=== PATIENT | male | born 1985 | race African-American/Black ===

== ENCOUNTER 2018-12-05 15:58 | Inpatient (IN) | payer OTHER ==
[2018-12-05 16:50] LABS: Hemoglobin 16.9 g/dL (14.0-18.0); Mean Corpuscular HGB CONC 29.8 g/dL (32.0-36.0); Mean Corpuscular Hemoglobin 26.8 pg (27.0-31.0); Mean Corpuscular Volume 90.1 fL (78.0-98.0); Mean Platelet Volume 11.1 fL (7.4-10.4); Platelet Count 120 thou/uL (130-400); RBC Distribution Width 14.8 % (11.5-14.5); White Blood Cell (WBC) Count 4.2 thou/uL (4.8-10.8)
--- NOTE | 2018-12-05 16:58 | RAD ---
PORTABLE CHEST: Date: 12/05/18 COMPARISON: 11/28/18 study. HISTORY: Shortness of breath. FINDINGS: Heart size markedly enlarged. No signs of overt failure or focal infiltrates. IMPRESSION: Marked cardiomegaly. Stable exam. POS: [facility]
[2018-12-05 17:10] LABS: ALT (SGPT) 28 U/L (8-55); AST (SGOT) 25 U/L (5-34); Albumin 3.6 g/dL (3.5-5.0); Alkaline Phosphatase 86 U/L (40-150); Anion Gap 16 mmol/L (10-20); BUN (Urea Nitrogen) 34 mg/dL (8.9-20.6); Bilirubin, Total 1.2 mg/dL (0.2-1.2); Calc. Creatinine Clearance 0 mL/min (70-130); Calcium 9.3 mg/dL (7.8-10.44); Carbon Dioxide 29 mmol/L (22-29); Chloride 93 mmol/L (98-107); Estimated GFR-MDRD 55; Globulin 3.2 g/dL (2.4-3.5); Glucose 141 mg/dL (70-105); Potassium 3.8 mmol/L (3.5-5.1); Protein, Total 6.8 g/dL (6.0-8.3); Sodium 134 mmol/L (136-145)
[2018-12-05 17:14] LABS: Band 14 % (5-11); Lymphocytes 22 % (21-51); MDiff Complete? YES; Monocytes 17 % (0-10); Neutrophil 38 % (42-75); Platelet Morphology Comment Appears Decreased; RBC Morphology Normal; Reactive Lymphocytes 9 % (0-10)
--- NOTE | 2018-12-05 18:29 | PDOC.FPRHP ---
- History of Present Illness Chief Complaint: SOB History of Present Illness: 32 yo M with HFrEF, HLD, HTN, HIV and Morbid obesity presents for low O2 sats in 80s and low BP (92/62 on admission), sent from [facility]. He was recently discharged from the hospital for acute CHF exacerbation. He states he has been having diarrhea, 5-6 episodes watery stools per day since soon after his discharge. He has also been restricting his daily fluid intake to 2L /day. In ED, he was diaphoretic, had BP 92/62 that improved with fluids, satting 87% on RA. WBC of 4.2 with a bandemia. Trop indeterminate. BNP 865. CXR showed no changes. - Allergies/Adverse Reactions Allergies Allergy/AdvReac Type Severity Reaction Status Date / Time No Known Drug Allergies Allergy Verified 11/28/18 17:40 - Home Medications Medication Instructions Recorded Confirmed Type Elviteg/Cob/Emtri/Tenof Alafen 1 tab PO DAILY 06/07/18 12/05/18 History [Genvoya Tablet] Carvedilol [Coreg] 6.25 mg PO BID-WM #60 tab 06/12/18 12/05/18 Rx Lisinopril [Zestril] 10 mg PO DAILY #30 tab 06/12/18 12/05/18 Rx Potassium Chloride 10 meq PO DAILY #30 tab 06/12/18 12/05/18 Rx Furosemide [Lasix] 80 mg PO DAILY 11/28/18 12/05/18 History Spironolactone [Aldactone] 12.5 mg PO QAM-WM #30 tab 11/30/18 12/05/18 Rx Aspirin [Aspirin EC] 81 mg PO DAILY 12/05/18 12/05/18 History - History PMHx: CHF (EF 45-50%), pre-diabetes, HLD, DANIEL, HTN, HIV (CD4 250), Morbid obesity with concern for obesity hypoventilation syndrome, latent syphilis PSHx: tonsils and adenoids FHx: father -CHF, Fathers gMa- heart attack and stroke mGM-AVM and stroke Social: quit 3 years ago smoking, was smoking intermittently reports not addicted; occasional, none for past few months; no drug use - Review of Systems General: denies: fever/chills Eyes: denies: eye pain, vision changes ENT: denies: nasal congestion, rhinorrhea Respiratory: reports: shortness of breath. denies: cough, congestion Cardiovascular: denies: chest pain, palpitation, edema Gastrointestinal: reports: diarrhea, abdominal pain. denies: nausea, vomiting, constipation, GI bleeding Genitourinary: denies: dysuria, other (hematuria) Skin: denies: rashes, lesions Musculoskeletal: reports: pain (chronic low back pain). denies: tenderness Neurological: denies: numbness, weakness Psychological: denies: anxiety, depression (sister thinks he is depressed) - Vital signs BP: [114/53] HR: [98] RR: [16] Tmax: [98.1] Pox: [98]% on [2L BNC] Wt: [ 213.19 kg] - Physical Exam Constitutional: NAD, awake, alert and oriented, well developed, other (obese morbid) HEENT: normocephalic and atraumatic, PERRLA, EOMI, conjunctiva clear, MMM, oropharynx clear Neck: supple, no LAD Heart: normal S1/S2, no murmurs/rubs/gallops, pulses present, other (irregular rhythm) Lungs: CTAB, no respiratory distress, other (difficult exam due to size) Abdomen: soft, non-tender, bowel sounds present Musculoskeletal: normal structure, normal tone Neurological: no focal deficit, CN II-XII intact, normal sensation Skin: no rash/lesions, good turgor, capillary refill <2 seconds Heme/Lymphatic: no unusual bruising or bleeding Psychiatric: normal mood and affect, other (poor memory) [facility] H&P: Results - Labs Result Diagrams: 12/05/18 16:34 12/05/18 16:34 Lab results: WBC 4.2 thou/uL (4.8-10.8) L 12/05/18 16:34 Hgb 16.9 g/dL (14.0-18.0) 12/05/18 16:34 Hct 56.7 % (42.0-52.0) H 12/05/18 16:34 MCV 90.1 fL (78.0-98.0) 12/05/18 16:34 Plt Count 120 thou/uL (130-400) L 12/05/18 16:34 Band Neuts % (Manual) 14 % (5-11) H 12/05/18 16:34 Sodium 134 mmol/L (136-145) L 12/05/18 16:34 Potassium 3.8 mmol/L (3.5-5.1) 12/05/18 16:34 Chloride 93 mmol/L (98-107) L 12/05/18 16:34 Carbon Dioxide 29 mmol/L (22-29) 12/05/18 16:34 BUN 34 mg/dL (8.9-20.6) H 12/05/18 16:34 Creatinine 1.75 mg/dL (0.7-1.3) H 12/05/18 16:34 Glucose 141 mg/dL (70-105) H 12/05/18 16:34 Calcium 9.3 mg/dL (7.8-10.44) 12/05/18 16:34 Total Bilirubin 1.2 mg/dL (0.2-1.2) 12/05/18 16:34 AST 25 U/L (5-34) 12/05/18 16:34 ALT 28 U/L (8-55) 12/05/18 16:34 Alkaline Phosphatase 86 U/L (40-150) 12/05/18 16:34 CK-MB (CK-2) 2.0 ng/mL (0-6.6) 12/05/18 16:34 B-Natriuretic Peptide 865.3 pg/mL (0-100) H 12/05/18 16:34 Serum Total Protein 6.8 g/dL (6.0-8.3) 12/05/18 16:34 Albumin 3.6 g/dL (3.5-5.0) 12/05/18 16:34 - EKG Interpretation EKG: frequent PACs, NSR - Radiology Interpretation Chest x-ray Status: image reviewed by me Additional comment: stable cardiomegaly [facility] H&P: A/P - Problem List (1) Acute and chronic respiratory failure with hypoxia Current Visit: No Status: Acute Code(s): J96.21 - ACUTE AND CHRONIC RESPIRATORY FAILURE WITH HYPOXIA (2) Septic colitis Current Visit: Yes Status: Acute Code(s): A09 - INFECTIOUS GASTROENTERITIS AND COLITIS, UNSPECIFIED (3) Volume depletion, gastrointestinal loss Current Visit: Yes Status: Acute Code(s): E86.9 - VOLUME DEPLETION, UNSPECIFIED (4) Elevated brain natriuretic peptide (BNP) level Current Visit: Yes Status: Acute Code(s): R79.89 - OTHER SPECIFIED ABNORMAL FINDINGS OF BLOOD CHEMISTRY (5) Acute kidney injury superimposed on CKD Current Visit: Yes Status: Acute Code(s): N17.9 - ACUTE KIDNEY FAILURE, UNSPECIFIED; N18.9 - CHRONIC KIDNEY DISEASE, UNSPECIFIED (6) Hyponatremia Current Visit: Yes Status: Acute Code(s): E87.1 - HYPO-OSMOLALITY AND HYPONATREMIA (7) Thrombocytopenia Current Visit: Yes Status: Acute Code(s): D69.6 - THROMBOCYTOPENIA, UNSPECIFIED (8) Polycythemia secondary to hypoxia Current Visit: Yes Status: Chronic Code(s): D75.1 - SECONDARY POLYCYTHEMIA (9) Latent syphilis in male Current Visit: Yes Status: Chronic Code(s): A53.0 - LATENT SYPHILIS, UNSPECIFIED EARLY OR LATE (10) HFrEF (heart failure with reduced ejection fraction) Current Visit: Yes Status: Chronic Code(s): I50.20 - UNSPECIFIED SYSTOLIC ( CONGESTIVE) HEART FAILURE (11) Pre-diabetes Current Visit: Yes Status: Chronic Code(s): R73.03 - PREDIABETES (12) HLD (hyperlipidemia) Current Visit: Yes Status: Chronic Code(s): E78.5 - HYPERLIPIDEMIA, UNSPECIFIED (13) HIV (human immunodeficiency virus infection) Current Visit: No Status: Chronic Code(s): B20 - HUMAN IMMUNODEFICIENCY VIRUS [HIV] DISEASE (14) HTN (hypertension) Current Visit: No Status: Chronic Code(s): I10 - ESSENTIAL (PRIMARY) HYPERTENSION (15) Morbid obesity Current Visit: No Status: Chronic Code(s): E66.01 - MORBID (SEVERE) OBESITY DUE TO EXCESS CALORIES (16) Obesity hypoventilation syndrome Current Visit: No Status: Suspected Code(s): E66.2 - MORBID (SEVERE) OBESITY WITH ALVEOLAR HYPOVENTILATION - Plan Acute hypoxic resp failure 2/2 most likely to Pickwickian syndrome In ED, satting 87% on RA. Improved with BNC to 98% on 2L O2. - CXR showed stable cardiomegaly. BNP elevated at 865, however not clinically fluid overloaded. Trop indeterminate. - Pt had low O2 at recent admission - CM consult for outpatient O2 - Procal pending - Tamiko QUIROGA q4H - CM consulted to help acquire portable oxygen. Sepsis 2/2 colitis, Volume depletion 2/2 diarrhea - Low WBC, P 98 - Start gentle fluids in setting of CHF, LR @ 125 - Stool studies pending Elevated BNP - Likely 2/2 to CKD DANIEL on CKD - Cr 1.75 - Likely 2/2 volume depletion from diarrhea - Gentle IV fluids as above Hyponatremia -Mild, 134. Continue to monitor Thrombocytopenia -120 Polycythemia - Likely 2/2 to pickwickian/ LOURDES. In need of sleep study HIV (CD4 250) -Patient does not admit in front of family. Continue home meds, patient very compliant. Latent syphilis -Pt will likely need 2nd penicillin G injection during his stay here HFrEF (EF 45-50%) - Trop indeterminate. BNP 865. CXR showed stable cardiomegaly. - Daily weights, strict I/Os Pre-diabetes -Patient aware HLD HTN - Continue home medication Morbid obesity concern for pickwickian Diet: CC, HH DVT ppx: lovenox GI ppx: Ranitidine Code status: Full PCP: KELLI Naqvi at [facility] H&P: Upper Level - Pertinent history 32 yo AAM PMH HIV well controlled on HAART, HTN, HFpEF. Presents from urgent care with CC of low oxygen status and low BP. States he develop diarrhea 2 days after he was d/c from hospital and states he has felt like he has had a " stomach bug" for the last 4-5 days. Was d/c on 11/30 for CHF exacerbation. I spoke with Dr. Pavon who stated they believed the patient's hypoxia was 2/2 obesity hypoventilation syndrome and LOURDES. Patient needs CPAP but not funded. Patient received home Oxygen but only using at bed time. ER: Labs, EKG, CXR, - Pertinent findings Vitals: SpO2 94% on 3L. Pulse ranges from 90s to 170s. GEN: morbidly obese, NAD CV: RRR, no murmur Pulm: CTA-B, exam limited by body habituys Labs: Trop 0.031, BNP 865 (d/c at 400), WBC 4.2, Cr 1.75 CXR: NO acute processes EKG/Tele: while examining patient, tele monitor would vary between NSR in 90s to SVT vs sinus tachycardia in 170s. Occasional A-fib/a-flutter appearing rhythm. Patient asymptomatic during episodes and episodes last 4-5 seconds. - Plan Date/Time: 12/05/181828 I, Jaret Alejo MD, have evaluated this patient and agree with findings/plan as outlined by landscape maintenance internship resident. Pertinent changes/additions are listed here. 1. Sepsis 2/2 colitis: BP and Pulse improved without fluids. Will start maintenance fluids LR 125mL/hr. Check stool lactoferrin, C-diff, and culture. Monitor PO intake. 2. HFrEF: While BNP continues to trend up, not clinically overloaded at this time. May be due to physiologic stress from diarrhea. 3. DANIEL on CKD2: IV LR. 4. Obesity hypoventilation syndrome: Oxygen PRN. CM consulted to help acquire portable oxygen. 5. HTN: home meds 6. HIV: well controlled per Dr. Chapin last note. 7. PPx: Lovenox 8. Diet: HH 9. CODE: FULL 10. Elevated Troponin: likely stress response. Trend x3. Dispo: Obs, Tele, <[address] Hicks.
[2018-12-05] MEDS ORDERED: Enoxaparin Sodium 40 MG/0.4 ML SYRINGE SC SCH (20:15)
[2018-12-05 20:45] LABS: Troponin I 0.027 ng/mL (< 0.028)
[2018-12-05] MEDS ORDERED: Acetaminophen 325 MG TAB PO PRN (21:23)
[2018-12-05] MEDS: Famotidine 20 MG TAB PO SCH (22:28)
[2018-12-05] MEDS: Lactated Ringer's 1,000 ML IV SCH (22:28)
[2018-12-05] MEDS ORDERED: Gabapentin 300 MG CAP PO SCH (23:30)
--- NOTE | 2018-12-05 23:47 | PDOC.EVN ---
Event Note - Event Note Event Note: Date/Time: 12/05/18 8425 I personally evaluated the patient and discussed the management with Dr. Aruna Conway I agree with the History, Examination, Assessment and Plan documented above with any addition or exceptions noted below- 32 yo AAM PMH HIV well controlled on HAART, HTN, HFpEF, low back pain, and morbid obesity presented from urgent care with CC of low oxygen status and low BP. States he develop diarrhea 1 day after he was d/c from hospital and states he has felt like he has had a " stomach bug" for the last 4-5 days. Having 5-6 watery stools per day. Hasd some associated abdominal cramping which has resolved. Normal appetite. Denies any fever/chills. Recently hospitalized for CHF exacerbation and discharged with O2 which patient has been using at bedtime. PMH/PSH/ALl/Meds reviewed and agree with resident's documentation. T99.2 [id number]/85 P92 RR18 92% on 3L NC. Exam repeated by me and agree with resident's findings. Labs: WBC=4.2, H/H= 16.9/56.7, Eaa=202, Diff=38N/14B/22L, Uu=345, K=3.8, CL=93, CO2=29, BUN/Cr=34/ 1.75, Zndo=177, Procalcitonin=0.18 A/P: 1) Diarrhea- will check stool studies including C. Diff with recent hospitalization; continue gentle IVF. 2) DANIEL- Cr above baseline- continue gentle IVF. 3) Pickwickian syndrome- continue O2. 4) HIV- continue home meds.
[2018-12-06] MEDS: Lactated Ringer's 1,000 ML IV SCH ×2 (05:35→09:42)
--- NOTE | 2018-12-06 06:02 | PDOC.FM ---
- Subjective Subjective: Pt reports his breathing is improved. He also reports he has had less diarrhea overnight. He denies dizziness, lightheadedness, chest pain, or abdominal pain. - Objective MAR Reviewed: Yes Vital Signs & Weight: Vital Signs (12 hours) Temp Pulse Resp BP BP BP BP 12/06/18 04:00 97.7 F 107 H 22 H 115/75 12/06/18 02:24 18 12/05/18 22:35 93 127/70 127/85 133/65 12/05/18 22:31 16 12/05/18 20:45 99.2 F 92 16 137/85 Pulse Ox 12/06/18 04:00 100 12/06/18 02:24 95 12/05/18 22:35 94 L 12/05/18 22:31 94 L 12/05/18 20:45 94 L Weight Weight 221.625 kg I&O: 12/04/18 12/05/18 12/06/18 06:59 06:59 06:59 Intake Total 900 Output Total 550 Balance 350 Result Diagrams: 12/06/18 05:20 12/06/18 05:20 Phys Exam - Physical Examination Constitutional: NAD Morbidly obese HEENT: PERRLA, moist MMs Neck: supple Respiratory: no wheezing, no rales, clear to auscultation bilateral Cardiovascular: RRR, no significant murmur Gastrointestinal: soft, non-tender, no distention, positive bowel sounds edema, non pitting Neurological: non-focal, moves all 4 limbs Psychiatric: normal affect, A&O x 3 Dx/Plan (1) Acute kidney injury superimposed on CKD Code(s): N17.9 - ACUTE KIDNEY FAILURE, UNSPECIFIED; N18.9 - CHRONIC KIDNEY DISEASE, UNSPECIFIED Status: Acute (2) Hyponatremia Code(s): E87.1 - HYPO-OSMOLALITY AND HYPONATREMIA Status: Acute (3) Thrombocytopenia Code(s): D69.6 - THROMBOCYTOPENIA, UNSPECIFIED Status: Acute (4) HFrEF (heart failure with reduced ejection fraction) Code(s): I50.20 - UNSPECIFIED SYSTOLIC (CONGESTIVE) HEART FAILURE Status: Chronic (5) HLD (hyperlipidemia) Code(s): E78.5 - HYPERLIPIDEMIA, UNSPECIFIED Status: Chronic (6) Latent syphilis in male Code(s): A53.0 - LATENT SYPHILIS, UNSPECIFIED EARLY OR LATE Status: Chronic (7) Pre-diabetes Code(s): R73.03 - PREDIABETES Status: Chronic (8) Acute and chronic respiratory failure with hypoxia Code(s): J96.21 - ACUTE AND CHRONIC RESPIRATORY FAILURE WITH HYPOXIA Status: Acute (9) HIV (human immunodeficiency virus infection) Code(s): B20 - HUMAN IMMUNODEFICIENCY VIRUS [HIV] DISEASE Status: Chronic (10) HTN (hypertension) Code(s): I10 - ESSENTIAL (PRIMARY) HYPERTENSION Status: Chronic - Plan Plan: This is a 32 yo male with PMH of HIV, CKD, HFrEF, pre-diabetes, latent syphilis , HLD, HTN Acute Hypoxic respiratory failure likely 2/2 Pickwickian syndrome -Continued to require O2 support overnight -BMI of 56 -CM consult for outpt O2 -Procal negative, likely not bacterial infection -Tang Duoneb, will back off when clinically appropriate -2/3 troponins indeterminate, likely 2/2 demand ischemia Met SIRS criteria likely 2/2 SOB, volume depletion, diarrhea, and HIV -Continue gentle fluids, evaluate for decreasing once pt can tolerate PO -Pending stool studies Elevated BNP -Will monitor for signs of fluid overload DANIEL on CKD -Likely 2/2 dehydration -Continue fluid resuscitation Thrombocytopenia -Will monitor, (120) Pickwickian syndrome -Encourage outpt sleep study HIV (CD4 250) -No current need for prophylaxis, controlled on HAART Latent Syphilis -2nd dose of Pen G during stay HFrEF (EF 45-50%, 06/08/18) -Daily wt, strict I/Os 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
[2018-12-06 06:09] LABS: Anion Gap 14 mmol/L (10-20); BUN (Urea Nitrogen) 36 mg/dL (8.9-20.6); Calc. Creatinine Clearance 218 mL/min (70-130); Calcium 9.4 mg/dL (7.8-10.44); Carbon Dioxide 31 mmol/L (22-29); Chloride 93 mmol/L (98-107); Estimated GFR-MDRD 64; Glucose 111 mg/dL (70-105); Potassium 3.7 mmol/L (3.5-5.1); Sodium 134 mmol/L (136-145)
[2018-12-06 06:17] LABS: Band 3 % (5-11); Hemoglobin 16.8 g/dL (14.0-18.0); Lymphocytes 21 % (21-51); MDiff Complete? YES; Mean Corpuscular HGB CONC 29.8 g/dL (32.0-36.0); Mean Corpuscular Hemoglobin 27.1 pg (27.0-31.0); Mean Platelet Volume 10.6 fL (7.4-10.4); Monocytes 8 % (0-10); Neutrophil 67 % (42-75); Platelet Count 133 thou/uL (130-400); Platelet Morphology Comment Appears Adequate; RBC Distribution Width 14.5 % (11.5-14.5); RBC Morphology Normal; Reactive Lymphocytes 1 % (0-10); Red Blood Cell (RBC) Count 6.19 mill/uL (4.70-6.10); White Blood Cell (WBC) Count 4.3 thou/uL (4.8-10.8)
[2018-12-06] MEDS: Enoxaparin Sodium 40 MG/0.4 ML SYRINGE SC SCH (09:42)
[2018-12-06] MEDS: Famotidine 20 MG TAB PO SCH ×2 (09:42→21:14)
[2018-12-06] MEDS ORDERED: Sulfameth/Trimethoprim DS 800-160mg TAB PO SCH (12:30)
--- NOTE | 2018-12-06 19:21 | PRG ---
DATE OF SERVICE: 12/06/2018 SUBJECTIVE: Mr. Trejo is a 32-year-old man with HIV. He was recently discharged from the hospital and returned late yesterday with episodes of watery diarrhea. We have stool studies pending, but already this morning, he looks and feels improved. LABORATORY DATA: White count is 4200, hemoglobin is 16.9, hematocrit 56.7. Chemistry; sodium 134, potassium 3.7, chloride 93, bicarb 31, BUN 36, creatinine 1.54. PLAN: We are still awaiting several stool studies and we will continue IV fluids judiciously. Job ID: [id number]
[2018-12-06] MEDS: Gabapentin 300 MG CAP PO SCH (21:14)
--- NOTE | 2018-12-07 05:53 | PDOC.FM ---
- Subjective Subjective: Pt had a run of SVT overnight and then sinus tach per nursing/night team. This morning be denies chest pain, SOB, palpitations, abdominal pain, or diarrhea. - Objective MAR Reviewed: Yes Vital Signs & Weight: Vital Signs (12 hours) Temp Pulse Resp BP Pulse Ox 12/07/18 04:05 98.1 F 104 H 16 169/99 H 95 12/07/18 03:16 94 L 12/07/18 01:13 92 L 12/06/18 23:11 94 L 12/06/18 20:20 98.1 F 92 16 125/82 95 12/06/18 19:36 94 L 12/06/18 19:33 94 L Weight Admit Weight 221.625 kg Weight 223.213 kg I&O: 12/05/18 12/06/18 12/07/18 06:59 06:59 06:59 Intake Total 1025 1575 Output Total 800 1250 Balance 225 325 Result Diagrams: 12/07/18 04:42 12/07/18 04:42 Phys Exam - Physical Examination Constitutional: NAD HEENT: moist MMs Neck: full ROM Respiratory: no wheezing, clear to auscultation bilateral (difficult to assess due to body habitus) Cardiovascular: RRR, no significant murmur Gastrointestinal: soft, non-tender, no distention, positive bowel sounds Musculoskeletal: pulses present, edema present (non pitting edema) Neurological: normal sensation, moves all 4 limbs Psychiatric: normal affect, A&O x 3 Deviation from normal: Pt with some somulence Skin: cap refill <2 seconds Dx/Plan (1) HTN (hypertension) Code(s): I10 - ESSENTIAL (PRIMARY) HYPERTENSION Status: Chronic (2) HIV (human immunodeficiency virus infection) Code(s): B20 - HUMAN IMMUNODEFICIENCY VIRUS [HIV] DISEASE Status: Chronic (3) Acute and chronic respiratory failure with hypoxia Code(s): J96.21 - ACUTE AND CHRONIC RESPIRATORY FAILURE WITH HYPOXIA Status: Acute (4) Acute kidney injury superimposed on CKD Code(s): N17.9 - ACUTE KIDNEY FAILURE, UNSPECIFIED; N18.9 - CHRONIC KIDNEY DISEASE, UNSPECIFIED Status: Acute (5) Hyponatremia Code(s): E87.1 - HYPO-OSMOLALITY AND HYPONATREMIA Status: Acute (6) Thrombocytopenia Code(s): D69.6 - THROMBOCYTOPENIA, UNSPECIFIED Status: Acute (7) Latent syphilis in male Code(s): A53.0 - LATENT SYPHILIS, UNSPECIFIED EARLY OR LATE Status: Chronic (8) HFrEF (heart failure with reduced ejection fraction) Code(s): I50.20 - UNSPECIFIED SYSTOLIC (CONGESTIVE) HEART FAILURE Status: Chronic (9) Pre-diabetes Code(s): R73.03 - PREDIABETES Status: Chronic (10) HLD (hyperlipidemia) Code(s): E78.5 - HYPERLIPIDEMIA, UNSPECIFIED Status: Chronic - Plan Plan: This is a 32 yo male with PMH of HIV, CKD, HFrEF, pre-diabetes, latent syphilis , HLD, HTN Acute Hypoxic respiratory failure likely 2/2 Pickwickian syndrome -Continued to require O2 support overnight -BMI of 56 -CM consult for outpt O2 -Procal negative, likely not bacterial infection -Tang Duoneb, will back off when clinically appropriate -2/3 troponins indeterminate, likely 2/2 demand ischemia -ABG this AM pH 7.27, CO2 76.2, O2 75.1, Bicarb 34.8 -Transferring to the IMCU for bipap 2/2 respiratory acidosis likely 2/2 Morbid obesity and hypoventilation syndrome -Pending anti Xa level, based on this level, I would consider obtaining a VQ scan (pt is above max wt for CTA) -Pt had a 50 second run of SVT that resolved spontaneously Met SIRS criteria likely 2/2 SOB, volume depletion, diarrhea, and HIV -Dehydration resolved, continue PO hydration only -Stool studies negative for campylobacter, Shiga toxin, E. coli O157. -Stool studies positive for fecal lactoferrin, this likely does not play a role in this pt's acute diarrhea Elevated BNP -Will monitor for signs of fluid overload DANIEL on CKD -Improving Thrombocytopenia -Will monitor, (120) Pickwickian syndrome -Encourage outpt sleep study HIV (CD4 250) -No current need for prophylaxis, controlled on HAART Latent Syphilis -2nd dose of Pen G during stay HFrEF (EF 45-50%, 06/08/18) -Daily wt, strict I/Os Pre-diabetic -Tests Superintendent pt on heart healthy and diabetic diet HLD -Continue home meds HTN -Continue home meds
[2018-12-07 06:05] LABS: Anion Gap 13 mmol/L (10-20); BUN (Urea Nitrogen) 24 mg/dL (8.9-20.6); Calc. Creatinine Clearance 289 mL/min (70-130); Calcium 9.1 mg/dL (7.8-10.44); Carbon Dioxide 31 mmol/L (22-29); Chloride 96 mmol/L (98-107); Estimated GFR-MDRD 88; Glucose 84 mg/dL (70-105); Potassium 4.3 mmol/L (3.5-5.1); Sodium 136 mmol/L (136-145)
[2018-12-07 06:17] LABS: Band 6 % (5-11); Hemoglobin 16.3 g/dL (14.0-18.0); Lymphocytes 32 % (21-51); MDiff Complete? YES; Mean Corpuscular HGB CONC 29.4 g/dL (32.0-36.0); Mean Corpuscular Hemoglobin 26.5 pg (27.0-31.0); Mean Corpuscular Volume 90.1 fL (78.0-98.0); Mean Platelet Volume 10.3 fL (7.4-10.4); Monocytes 24 % (0-10); Neutrophil 37 % (42-75); Platelet Count 121 thou/uL (130-400); RBC Distribution Width 14.6 % (11.5-14.5); Reactive Lymphocytes 1 % (0-10); Red Blood Cell (RBC) Count 6.15 mill/uL (4.70-6.10)
[2018-12-07 08:17] LABS: Actual Bicarbonate (HCO3a) 34.8 mEq/L (22-28); Base Excess (BEa) 4.5 mEq/L (-2.0 to +3.0); Calcium, Ionized 1.25 mmol/L (1.12-1.30); Carboxyhemoglobin (COHb) 1.7 gm% (0.0-3.0); Hemoglobin (Hb) 17.3 g/dL (14.0-18.0); O2 Tension (PaO2) 75.1 mmHg (80.0-100.0); Potassium - ABG Lab 4.33 mmol/L (3.70-5.30); pH, Arterial 7.28 (7.35-7.45)
[2018-12-07 08:21] LABS: CO2 Tension 76.2 mmHg (35.0-45.0)
[2018-12-07] MEDS ORDERED: Sulfameth/Trimethoprim DS 800-160mg TAB PO SCH (09:00)
[2018-12-07] MEDS ORDERED: Furosemide 40 MG TAB PO SCH (09:00)
[2018-12-07] MEDS ORDERED: Elviteg/Cob/Emtri/Tenof Alafen [Genvoya Tablet] 1 TAB PO SCH ×2 (09:00→13:45)
[2018-12-07] MEDS: Enoxaparin Sodium 40 MG/0.4 ML SYRINGE SC SCH ×2 (09:11→20:29)
[2018-12-07] MEDS: Carvedilol 6.25 MG TAB PO SCH ×2 (09:11→17:32)
[2018-12-07] MEDS: Potassium Chloride 10 MEQ TAB PO SCH (09:11)
[2018-12-07] MEDS: Lisinopril 10 MG TAB PO SCH (09:12)
[2018-12-07] MEDS: Aspirin 81 mg Enteric Coated Tablet PO SCH (09:12)
[2018-12-07] MEDS: Famotidine 20 MG TAB PO SCH ×2 (09:13→20:30)
[2018-12-07] MEDS: Spironolactone 25 MG TAB PO SCH (09:13)
[2018-12-07] MEDS: Sulfameth/Trimethoprim DS 800-160mg TAB PO SCH (09:13)
--- NOTE | 2018-12-07 11:25 | PRG ---
DATE OF SERVICE: 12/07/2018 SUBJECTIVE: This morning early after wakening, Ceasar was still quite somnolent. We obtained an arterial blood gas that revealed respiratory acidosis with a pH of 7.28 and a pCO2 of 76. I surmise that Mr. Trejo has LOURDES and likely developed these numbers overnight during sleep. In the event of half an hour later Mr. Trejo was awake, alert, smiling, and even joking with staff. We as a precaution transferred him to the [facility] for BiPAP. We have again emphasized him the importance of obtaining a sleep study as we feel he likely has LOURDES. Otherwise, this morning Mr. Trejo after the initial awakening is happy, alert, no distress. Job ID: [id number]
[2018-12-07] MEDS ORDERED: Bicillin LA 2.4 MILL.UNITS/4 ML SYRINGE IM SCH (12:30)
--- NOTE | 2018-12-07 16:15 | CON ---
DATE OF CONSULTATION: 12/07/2018 SERVICE: Pulmonary Medicine. REASON FOR CONSULT: Respiratory failure. HISTORY OF PRESENT ILLNESS: The patient is a 32-year-old male. He was in the hospital last week. Ultimately, he was discharged from the hospital and returned to his usual state of health. At his followup appointment, his saturations were low. His blood pressures were also low. He was redirected immediately to the Emergency Department. He felt fine this entire time. Denies any chest pain, fevers, chills, shortness of breath, nausea, or vomiting. He is not lightheaded. He was tucked into the telemetry unit. In that location, based on his recollection, everything was fine, and everybody busted into the room, and made us think something about his heart. Ultimately, an ABG was performed demonstrating hypercapnic failure, which appeared to be mostly chronic. He wished to the IMCU. BiPAP was not initiated. He denies any current fevers, chills, nausea, or vomiting. The patient snores very heavily. He had witnessed apneas at bedside, notes being excessively sleepy during the daytime, and has nocturia x4 to x5 every single evening. Despite the fact that he typically gets 8 hours of sleep, during the daytime he has a hard time keeping his eyes open. Otherwise, he is in his usual state of health and he has no complaints. PHYSICAL EXAMINATION: VITAL SIGNS: Afebrile with a T-max of 99. Pulse 98, blood pressure 105/76, respirations 28, saturation 94% on 2 L nasal cannula. GENERAL: The patient is awake and alert, in no apparent distress. LUNGS: Excellent air entry with no prolonged expiratory phase. There is no wheezing or rhonchi present. HEART: Normal rate, regular. ABDOMEN: Soft, nontender, nondistended. Bowel sounds are positive. MUSCULOSKELETAL: No cyanosis or clubbing. No pitting in the bilateral lower extremities. NEUROLOGIC: Grossly nonfocal. LABORATORY DATA: WBC 5.0, hemoglobin 16.3, platelets 121,000. Neutrophil count is 37% on top 6% bands. Monocyte count is 24. PH 7.28, pCO2 76, PO2 75, corresponding to a saturation of 94%. This was when he was wearing 2 L nasal cannula. Creatinine 1.17 and beautifully downtrending. BUN 24, bicarb 31. Basic metabolic profile is otherwise unremarkable. Troponin 0.03 and gently up trending. BNP 865. Procalcitonin is negative. Liver function studies were previously unremarkable. Stool lactoferrin is positive. Campylobacter and shiga toxin are negative. C. diff antigen and toxin are unremarkable. Stool cultures growing nothing more than normal shannen. ASSESSMENT: 1. Chronic hypercapnic respiratory failure. 2. Morbid obesity. 3. Obstructive sleep apnea, suspected. 4. Diarrhea. DISCUSSION AND PLAN: We will need to expedite an outpatient polysomnogram. Return to clinic to follow up with me in the outpatient setting after this can be arranged. I have a very low threshold for him to be transitioned through CPAP on to BiPAP. Given his hypercapnic failure, my suspicion is that he would benefit more from BiPAP. Pulmonary/Critical Care will continue to follow along while the patient remains in-house, but from my perspective, he is at his baseline and can be considered for transition back out to the telemetry unit. The diarrhea will need to be corrected as the patient will not be able to tolerate the relative metabolic acidosis that accompanies this. 70 minutes have been devoted to this patient in various activities. I personally reviewed all imaging studies and laboratory data noted within this document. For fifty percent of this time, I was interacting with the patient at the bedside or coordinating care with the care team. For the remainder of the time I was immediately available to the patient in the hospital unit. Job ID: [id number] [facility]
[2018-12-07] MEDS: Elviteg/Cob/Emtri/Tenof Alafen [Genvoya Tablet] 1 TAB PO SCH (17:31)
[2018-12-07] MEDS ORDERED: Ondansetron PF 4 MG/2 ML Vial IVP PRN (19:46)
[2018-12-07] MEDS ORDERED: Ondansetron ODT 4 MG TAB PO PRN (19:46)
--- NOTE | 2018-12-07 20:47 | RAD ---
AP VIEW CHEST: 12/07/18 HISTORY: Dyspnea. Shortness of breath, elevated D-dimer. AP view chest is obtained on 12/07/18. Comparison made to previous exam from 12/05/18. AP view chest demonstrates cardiomegaly seen. EKG leads seen over the chest. Mild pulmonary vascular congestion seen. No evidence of effusions, pneumonia or pneumothorax seen. IMPRESSION: Cardiomegaly. POS: [facility]
[2018-12-07] MEDS: Gabapentin 300 MG CAP PO SCH (21:00)
[2018-12-07 22:28] LABS: Hemoglobin 16.7 g/dL (14.0-18.0); Mean Corpuscular Hemoglobin 26.2 pg (27.0-31.0); Mean Corpuscular Volume 91.2 fL (78.0-98.0); Red Blood Cell (RBC) Count 6.37 mill/uL (4.70-6.10); White Blood Cell (WBC) Count 6.7 thou/uL (4.8-10.8)
[2018-12-07 22:49] LABS: Band 1 % (5-11); Lymphocytes 12 % (21-51); MDiff Complete? YES; Mean Corpuscular HGB CONC 28.7 g/dL (32.0-36.0); Mean Platelet Volume 10.6 fL (7.4-10.4); Monocytes 30 % (0-10); Neutrophil 41 % (42-75); Platelet Count 123 thou/uL (130-400); Platelet Morphology Comment Appears Adequate; RBC Distribution Width 14.9 % (11.5-14.5); RBC Morphology Normal; Reactive Lymphocytes 16 % (0-10)
[2018-12-07 22:57] LABS: ALT (SGPT) 34 U/L (8-55); AST (SGOT) 27 U/L (5-34); Albumin 3.7 g/dL (3.5-5.0); Alkaline Phosphatase 108 U/L (40-150); Anion Gap 19 mmol/L (10-20); BUN (Urea Nitrogen) 26 mg/dL (8.9-20.6); Bilirubin, Total 1.7 mg/dL (0.2-1.2); Calc. Creatinine Clearance 168 mL/min (70-130); Carbon Dioxide 25 mmol/L (22-29); Chloride 96 mmol/L (98-107); Estimated GFR-MDRD 47; Globulin 3.4 g/dL (2.4-3.5); Glucose 116 mg/dL (70-105); Potassium 4.9 mmol/L (3.5-5.1); Protein, Total 7.1 g/dL (6.0-8.3); Sodium 135 mmol/L (136-145)
[2018-12-07] MEDS ORDERED: Midazolam HCl 2 mg/2 ml Vial ONE (23:00)
--- NOTE | 2018-12-07 23:16 | RAD ---
AP VIEW CHEST 12/07/18 HISTORY: Status post intubation. AP view chest obtained. Previous old comparison studies not available. AP view chest demonstrates EKG leads seen over the chest. The patient has been intubated. Endotrachea l tube is in good position. There is marked cardiomegaly noted. Exam quality is severely limited due to the patient's large body habitus. Pulmonary vascular congestion seen. IMPRESSION: Endotracheal tube appears to be in good position mid intrathoracic tracheal region. POS: [facility]
[2018-12-07] MEDS ORDERED: Propofol 1,000 MG/100 ML VIAL IV ONE (23:26)
--- NOTE | 2018-12-07 23:26 | PDOC.EVN ---
Event Note - Event Note Event Note: Updated sister Amelia White who is in [place] on patient's condition. Sister reports that he has no or kids, and that mother does not have capacity. She identifies herself as next of kin. is her phone number. She is traveling from [place], her flight leaves at 5 AM tomorrow. She states she will arrive here around noon.
[2018-12-07] MEDS ORDERED: Rocuronium Bromide 10 MG/ML (10ML VIAL) ONE (23:31)
[2018-12-07] MEDS ORDERED: Rocuronium Bromide 50 MG/5 ML VIAL ONE (23:32)
[2018-12-07] MEDS ORDERED: Ventilator Sedation Protocol 1 EACH FS ONE (23:53)
[2018-12-07] MEDS ORDERED: Morphine 2 MG/ML SYRINGE SLOW IVP PRN (23:59)
[2018-12-07] MEDS ORDERED: Midazolam HCl 2 mg/2 ml Vial SLOW IVP SCH (23:59)
[2018-12-07] MEDS ORDERED: fentaNYL Citrate/PF 2,000 MCG in Sodium Chloride 0.9% 60 ML IV SCH (23:59)
[2018-12-07] MEDS ORDERED: Propofol BOLUS 1,000 MG/100 ML VIAL IV PRN (23:59)
[2018-12-07] MEDS ORDERED: DISCONTINUE PREVIOUS NARCOTIC PAIN MEDICATIONS AND BENZODIAZEPINES FS SCH (23:59)
[2018-12-07] MEDS ORDERED: Fentanyl BOLUS 250 ML IVPB PRN (23:59)
[2018-12-07] MEDS ORDERED: Lorazepam 2 MG/ML VIAL SLOW IVP PRN (23:59)
[2018-12-07] MEDS ORDERED: Lactated Ringer's 500 ML IV SCH (23:59)
[2018-12-08] MEDS: Lactated Ringer's 1,000 ML IV SCH ×3 (00:46→20:45)
--- NOTE | 2018-12-08 00:55 | PRG ---
DATE OF SERVICE: 12/07/2018 RESIDENT: Jaret Alejo MD ATTENDING PHYSICIAN: 1. Kiersten Canela MD. 2. Chaim Awan MD. HISTORY OF PRESENT ILLNESS: Dori ramirez was called on the patient at approximately 2120 hours. I responded to the code green, at which time the patient was sitting on the floor being propped up by nursing staff. Per the patient's grandmother, the patient was standing up to go use the bedside commode and as he began to sit down on the commode, he lost consciousness, fell backwards over the top of the commode. Earlier this evening, the patient had developed acute worsening shortness of breath, chest pressure, abdominal pain, and tachycardia. At that time, troponin, BNP, D-dimer, Chest XRay, and EKG were taken. EKG showed sinus tachycardia, but was otherwise unchanged from admission. Troponin and BNP were essentially unchanged from admission. The patient was placed on BiPAP and had initial GCS score of 3, was unresponsive to painful verbal stimuli, but was breathing spontaneously with the BiPAP. Due to the patient's body habitus, a Margaux lift was obtained to try to move the patient, however, his body habitus prevented the use of the Margaux lift, so the patient was placed back in bed with nursing staff present. Decision was made to intubate the patient as he had GCS score of 3 and was unable protect his airway. I called Dr. Junior Osborne from the ER to assist with intubation. The patient was moved from the IMCU to the ICU on BiPAP, at which time, he was intubated. Prior to intubation, I discussed his care with Dr. Parrish, the on- call pulmonary critical care doctor, who recommended sedation only with no paralytic. Dr. Canela arrived just prior to intubation of the patient. An 8cm endotracheal tube was passed through the vocal cords under direct visualization using GlideScope. Tube was placed at 24 cm at the lips and secured in place. Position was verified with color capnography and bilateral lung sounds. Postprocedural chest x-ray was obtained and found to be in adequate position. At this time, his blood pressure remained low in the 70s/40s. His blood pressure remained low with pressures of 80s/40s. Decision was made to place a central venous catheter for potential need for pressors. Dr. Chaim Awan was called to assist with the placement of the central line. Left femoral triple lumen 7 Bulgarian catheter was placed using ultrasound guidance and the seldinger technique. First attempt failed and significant venous bleeding was noted at this time which resolved with approximately 4 to 5 minutes of pressure. Second attempt was successful done by Dr. Awan. During placement of central line, the patient continued to drop oxygen saturations into the low 80s. The patient was found to be biting the endotracheal tube which resolved with more sedation using propofol. The patient is now comfortably breathing on the ventilator, patient is 98% with FiO2 of 60%, inspiratory assist pressure of 10 with a PEEP of 5. Further management of the ventilator will be done by Dr. Parrish. LABORATORY DATA: ABGs were obtained following endotracheal intubation; pH was 7.3, PCO2 was in the 50s, PO2 was in the 60s. This information was relayed to Dr. Parrish by the respiratory therapist. Repeat labs showed increase in his creatinine from 1.17 to 2.01, BNP had downtrended to 639.7, troponin remains negative at 0.025. The patient's D-dimer prior to the code was 0.54. I had planned to perform CTA of the chest, however, the patient's body habitus prohibits CTA at this time, and a V/Q scan had been scheduled for the morning. At this time, afternoon babysitter tech is attempting to perform bilateral venous Doppler to evaluate for DVT. PHYSICAL EXAMINATION: GENERAL: The patient is sedated, resting comfortably on the ventilatory. ENT: Endotracheal tube at 24 cm at the lips with bilateral breath sounds. LUNGS: Clear to auscultation bilaterally. CARDIOVASCULAR: Tachycardic rate, regular rhythm. ASSESSMENT AND PLAN: 1. Acute hypoxic respiratory failure. 2. Syncope of unknown etiology. 3. Morbid obesity. 4. Human immunodeficiency virus-controlled. 5. Acute kidney injury. PLAN: 1. Continue sedation and mechanical ventilation overnight. Dr. Parrish will reassess the patient in the morning. He has adequate vascular access at this time. Broad spectrum antibiotics started at this time. 2. While the etiology of syncope is unknown, at this time, I suspect that the patient may have had a pulmonary embolic event given the history and his body habitus. We will attempt V/Q scan in the morning. 3. Acute renal injury likely due to hypoperfusion. We will monitor strict I's and O's, bolus 500 mL lactated Ringer's and then start gentle IV fluids at 100 mL/ hours. We will frequently reassess to monitor for fluid status. Repeat BMP in the morning. 4. Patient's overall prognosis remains guarded at this time. I have discussed the current plan of care with the patient's family. Approximately 2 hours of critical care time were performed excluding procedure time under the direct supervision of Dr. Canela. I was present from 2140 to 0015 for critical care time. I agree with documentation noted above. The post-intubation chest XR was discussed with Dr. Pitt in radiology as tube placement was difficult to see due to body habitus and he noted vascular congestion and cardiomegaly. Job ID: [id number] MTDD
[2018-12-08] MEDS ORDERED: Lactated Ringer's 500 ML IV SCH (01:00)
[2018-12-08 01:45] LABS: Fibrinogen 375 mg/dL (253-463)
[2018-12-08 01:46] LABS: INR-International Normal Ratio 1.2; PTT 25.4 SEC (22.9-36.1); Prothrombin Time 15.3 SEC (12.0-14.7)
[2018-12-08 01:47] LABS: D-Dimer Test 1.12 *mcg/mL (0.27-0.43)
[2018-12-08 01:48] LABS: FSP-Qualitative ABNORMAL (Normal); FSP-Semiquantitative >=5 & <20 mcg/mL (Less than 5); Platelet Count 119 thou/uL (130-400)
[2018-12-08] MEDS: Piperacillin/Tazobactam 4.5 GM in Sodium Chloride 0.9% 100 ML IVPB SCH ×3 (01:50→17:30)
[2018-12-08] MEDS: Propofol 1,000 MG/100 ML VIAL IV PRN ×7 (01:56→21:02)
[2018-12-08 05:19] LABS: Anion Gap 12 mmol/L (10-20); BUN (Urea Nitrogen) 28 mg/dL (8.9-20.6); Calc. Creatinine Clearance 176 mL/min (70-130); Calcium 9.1 mg/dL (7.8-10.44); Carbon Dioxide 32 mmol/L (22-29); Chloride 95 mmol/L (98-107); Estimated GFR-MDRD 50; Glucose 82 mg/dL (70-105); Potassium 4.5 mmol/L (3.5-5.1); Sodium 134 mmol/L (136-145)
[2018-12-08 05:35] LABS: Band 4 % (5-11); Hemoglobin 15.7 g/dL (14.0-18.0); Hypochromia SLIGHT = 6-15 cells (100X) (0-5/hpf); Large Platelets SLIGHT; Lymphocytes 19 % (21-51); MDiff Complete? YES; Mean Corpuscular HGB CONC 29.7 g/dL (32.0-36.0); Mean Corpuscular Hemoglobin 27.1 pg (27.0-31.0); Mean Corpuscular Volume 91.3 fL (78.0-98.0); Monocytes 20 % (0-10); Neutrophil 54 % (42-75); Platelet Count 116 thou/uL (130-400); Platelet Morphology Comment Appears Decreased; RBC Distribution Width 14.7 % (11.5-14.5); Reactive Lymphocytes 3 % (0-10); Red Blood Cell (RBC) Count 5.79 mill/uL (4.70-6.10); White Blood Cell (WBC) Count 5.4 thou/uL (4.8-10.8)
--- NOTE | 2018-12-08 06:41 | PDOC.FM ---
- Subjective Subjective: Ceasar Trejo seen at bedside this morning. CODE Blue early last night, intubated and R fem CVC placed. Started on empiric antibiotics coverage. LE doppler and V/Q scan ordered. No acute changes since intubation and mechanical ventilation. Vent Setting: SIMV, f 24, Vt 500, PEEP 5, FiO2 50% Morning ABG pending - Objective MAR Reviewed: Yes Vital Signs & Weight: Vital Signs (12 hours) Temp Pulse Pulse Pulse Pulse Pulse Pulse 12/08/18 04:00 99.0 F 12/08/18 02:26 79 12/08/18 02:00 12/08/18 00:00 12/07/18 23:00 99.4 F 12/07/18 22:46 91 12/07/18 22:42 88 12/07/18 22:31 88 12/07/18 22:30 89 12/07/18 22:28 86 12/07/18 22:27 85 12/07/18 22:18 87 12/07/18 22:01 100 12/07/18 21:58 102 H 12/07/18 21:28 50 L 67 60 90 90 12/07/18 19:50 99.4 F Pulse Resp Resp Resp Resp Resp BP 12/08/18 04:00 12/08/18 02:26 24 H 12/08/18 02:00 24 H 12/08/18 00:00 24 H 12/07/18 23:00 12/07/18 22:46 24 H 12/07/18 22:42 20 12/07/18 22:31 24 H 12/07/18 22:30 24 H 12/07/18 22:28 24 H 12/07/18 22:27 24 H 12/07/18 22:18 24 H 12/07/18 22:01 12 12/07/18 21:58 23 H 12/07/18 21:28 90 18 20 22 H 20 87/61 L 12/07/18 19:50 BP BP BP BP BP Pulse Ox Pulse Ox 12/08/18 04:00 12/08/18 02:26 92 L 12/08/18 02:00 12/08/18 00:00 12/07/18 23:00 12/07/18 22:46 93/57 L 94 L 12/07/18 22:42 95 12/07/18 22:31 87/40 L 95 12/07/18 22:30 83/45 L 98 12/07/18 22:28 70/0 L 12/07/18 22:27 68/40 L 12/07/18 22:18 67/46 L 93 L 12/07/18 22:01 98/35 L 12/07/18 21:58 111/58 L 12/07/18 21:28 75/39 L 78/41 L 111/58 L 98/35 L 96 12/07/18 19:50 Pulse Ox 12/08/18 04:00 12/08/18 02:26 12/08/18 02:00 12/08/18 00:00 12/07/18 23:00 12/07/18 22:46 12/07/18 22:42 12/07/18 22:31 12/07/18 22:30 12/07/18 22:28 12/07/18 22:27 12/07/18 22:18 12/07/18 22:01 12/07/18 21:58 12/07/18 21:28 94 L 12/07/18 19:50 Weight Admit Weight 221.625 kg Weight 223.213 kg Most Recent Monitor Data Heart Rate from ECG 84 NIBP 164/89 NIBP BP-Mean 96 Respiration from ECG 24 SpO2 88 I&O: 12/06/18 12/07/18 12/08/18 06:59 06:59 06:59 Intake Total 1025 1575 500 Output Total 800 1250 205 Balance 225 325 295 Result Diagrams: 12/08/18 03:15 12/08/18 03:15 Radiology Reviewed by me: Yes (CXR: Cardiomegaly, ET tube in good position) Phys Exam - Physical Examination sedated on mechanical ventilation HEENT: moist MMs, sclera anicteric Neck: no JVD, supple Respiratory: no wheezing, no rales, no rhonchi, clear to auscultation bilateral Cardiovascular: RRR, no significant murmur Gastrointestinal: soft, positive bowel sounds Musculoskeletal: no edema, pulses present Skin: no rash, cap refill <2 seconds Dx/Plan (1) Acute respiratory failure with hypoxia and hypercapnia Code(s): J96.01 - ACUTE RESPIRATORY FAILURE WITH HYPOXIA; J96.02 - ACUTE RESPIRATORY FAILURE WITH HYPERCAPNIA Status: Acute (2) Obesity hypoventilation syndrome Code(s): E66.2 - MORBID (SEVERE) OBESITY WITH ALVEOLAR HYPOVENTILATION Status : Suspected (3) HIV (human immunodeficiency virus infection) Code(s): B20 - HUMAN IMMUNODEFICIENCY VIRUS [HIV] DISEASE Status: Chronic (4) HTN (hypertension) Code(s): I10 - ESSENTIAL (PRIMARY) HYPERTENSION Status: Chronic (5) HLD (hyperlipidemia) Code(s): E78.5 - HYPERLIPIDEMIA, UNSPECIFIED Status: Chronic (6) Morbid obesity Code(s): E66.01 - MORBID (SEVERE) OBESITY DUE TO EXCESS CALORIES Status: Chronic - Plan Plan: This is a 32 yo male with PMH of HIV, CKD, HFrEF, pre-diabetes, latent syphilis , HLD, HTN 1) Acute Hypoxic Hypercapneic Respiratory Failure: likely 2/2 Pickwickian syndrome - Acute decompensation 12/07/18, Code Blue, syncepal episode - Intubated 12/07/18, R fem CVC placed on 12/07/18 - Procal negative, likely not bacterial infection, covering with empiric Abx, zosyn and vancomycin (started 12/08) - Tang Duoneb - / troponins indeterminate, likely 2/2 demand ischemia - Ordered V/Q scan, LE doppler to r/o VTE - Dr. Parrish Consulted for CCU management, appreciate recs 2) SIRS: likely 2/2 SOB, volume depletion, diarrhea, and HIV - Dehydration resolved, continue PO hydration only - Stool studies negative for campylobacter, Shiga toxin, E. coli O157. - Stool studies positive for fecal lactoferrin, this likely does not play a role in this pt's acute diarrhea 3) HFrEF - Elevated BNP, EF 45-50% on 06/08/18 - Will monitor for signs of fluid overload - strict I/Os, daily weights 4) DANIEL on CKD - Improving with maint IVFs 5) Thrombocytopenia - Continue to trend 6) Pickwickian syndrome - Recommend OP sleep study 7) HIV (CD4 250) - No current need for prophylaxis, controlled on HAART 8) Latent Syphilis - 2nd dose of Pen G during stay 9) Pre-diabetic -Order Entry Technician pt on heart healthy and diabetic diet 10) HLD -Continue home meds 11) HTN -Continue home meds Addendum - Attending - Attending Attestation Date/Time: 12/08/18 153 I personally evaluated the patient and discussed the management with Dr. Orlando. I agree with the History, Examination, Assessment and Plan documented above with any addition or exceptions noted below. Pt is sedated on this vent this morning. LE dopplers are negative. Appreciate Dr. Parrish's help managing the vent. Will continue supportive care. Cultures drawn overnight and are pending. ABG indicates alkalosis this morning. DANIEL mildly improved. All stool cultures to date have been negative.
[2018-12-08 07:11] LABS: Actual Bicarbonate (HCO3a) 29.9 mEq/L (22-28); Base Excess (BEa) 7.5 mEq/L (-2.0 to +3.0); CO2 Tension 34.9 mmHg (35.0-45.0); Calcium, Ionized 1.15 mmol/L (1.12-1.30); Carboxyhemoglobin (COHb) 1.9 gm% (0.0-3.0); Hemoglobin (Hb) 16.5 g/dL (14.0-18.0); Potassium - ABG Lab 3.81 mmol/L (3.70-5.30)
[2018-12-08 07:13] LABS: pH, Arterial 7.55 (7.35-7.45)
[2018-12-08 07:14] LABS: ALV-art Gradient 262.675 (0-20); O2 Tension (PaO2) 50.2 mmHg (80.0-100.0); Puncture Site RR
[2018-12-08] MEDS: Carvedilol 6.25 MG TAB PO SCH ×2 (08:00→17:26)
[2018-12-08] MEDS: Spironolactone 25 MG TAB PO SCH (08:00)
[2018-12-08] MEDS: Potassium Chloride 10 MEQ TAB PO SCH (09:00)
[2018-12-08] MEDS: Elviteg/Cob/Emtri/Tenof Alafen [Genvoya Tablet] 1 TAB PO SCH (09:00)
[2018-12-08] MEDS ORDERED: Vancomycin HCl 1.75 GM in Sodium Chloride 0.9% 500 ML IVPB SCH (09:00)
[2018-12-08] MEDS: Famotidine 20 MG TAB PO SCH (09:00)
[2018-12-08] MEDS: Lisinopril 10 MG TAB PO SCH (09:00)
[2018-12-08] MEDS: Enoxaparin Sodium 40 MG/0.4 ML SYRINGE SC SCH ×2 (09:06→21:02)
--- NOTE | 2018-12-08 09:07 | ULT ---
PRELIMINARY REPORT/[facility]/EMERGENCY AFTER HOURS PROCEDURE: EXAM: US Duplex Bilateral Lower Extremity Veins EXAM DATE/TIME: 12/08/2018 12:03 AM CLINICAL HISTORY: 32 years old, male; Abnormal lab test; Elevated d-dimer TECHNIQUE: Real-time duplex ultrasound of the Bilateral Lower Extremities with 2-D ashton scale, color Doppler nury w and spectral waveform analysis. Complete exam focused on the bilateral lower extremity veins. COMPARISON: No relevant prior studies available. FINDINGS: Right deep veins: Unremarkable. The common femoral, femoral, proximal profunda femoral and popliteal veins are patent without thrombus. Normal Doppler waveforms. Normal compressibility and/or augmentati on response. Right superficial veins: Saphenofemoral junction is patent without thrombus. Left deep veins: Unremarkable. The common femoral, femoral, proximal profunda femoral and popliteal v eins are patent without thrombus. Normal Doppler waveforms. Normal compressibility and/or augmentatio n response. Left superficial veins: Saphenofemoral junction is patent without thrombus. Soft tissues: Unremarkable. IMPRESSION: No deep venous thromosis of either lower extremity. Thank you for allowing us to participate in the care of your patient. Dictated and Authenticated by: Kee Stahl MD 12/08/2018 2:55 AM Central Time ([place] & [place]) FINAL REPORT VENOUS DUPLEX SONOGRAM BILATERAL LOWER EXTREMITY PERFORMED ON AN EMERGENCY BASIS: Date: 12/07/18 Time: 0005 hours HISTORY: Bilateral leg pain and edema. FINDINGS/IMPRESSION: Findings agree with the preliminary report by [facility]. Good color and spectral Doppler flow. No sonograp hic evidence of deep venous thrombosis within either lower extremity. POS: [facility]
--- NOTE | 2018-12-08 10:31 | PRG ---
DATE OF SERVICE: 12/08/2018 SERVICE: Pulmonary Medicine. INTERVAL HISTORY: The patient had a rough night. He got out of bed and on to the bedside commode. Apparently, he fell backwards over the thing and landed on his back. In this position, he was unable to get up and he was unable to breathe. He had increasing mentation issues. Ultimately, he was moved back into bed. At that location, he was placed on BiPAP. He was completely unresponsive to essentially sternal rub. As such, he was electively intubated to prevent catastrophe. He was brought to the ICU and tucked in. Overnight, he was ventilated to the point where he became alkalotic. He woke up and is now thrashing about a little bit and touched challenging to control. He cannot provide any additional elements of his history because he is requiring significant amounts of sedation. Otherwise, there has been no interval change to his condition. PHYSICAL EXAMINATION: VITAL SIGNS: Afebrile, currently with a T-max of 99.1, pulse 119, blood pressure 123/75, respirations 26, saturation 87% on 27% FiO2, and a PEEP of 5. GENERAL: The patient is intubated and sedated. HEENT: Normocephalic and atraumatic. Sclerae white. Conjunctivae pink. Oral mucosa is moist without lesions. LUNGS: Decent air entry. Dependent crackles are not present. No prolonged expiratory phase or wheezing is appreciated. HEART: Normal rate, regular. ABDOMEN: Soft, nontender, and nondistended. Bowel sounds are positive. MUSCULOSKELETAL: No cyanosis or clubbing. No pitting in the bilateral lower extremities. NEUROLOGIC: Grossly nonfocal. LABORATORY DATA: WBC 5.4, hemoglobin 15.7, platelets 116,000 and roughly stable. Neutrophil count is 54% on top of 4% neutrophils. INR 1.2. PH 7.55, pCO2 of 35, pO2 50. This corresponds to a saturation of 90% at the time. Creatinine downtrending to 1.92, BUN 28. Basic metabolic profile is otherwise unremarkable. His bicarb is 32. BNP is downtrending, troponin 0.025. C diff antigen and toxin, stool culture, Campylobacter, Shigella, stool lactoferrin, and blood cultures are all unremarkable today. IMAGING: Chest x-ray demonstrates cardiomegaly. Pulmonary vascular congestion is noted. This is likely accentuated secondary to low lung volumes. No effusions or pneumonia is otherwise identified. Ultrasound of the bilateral lower extremities demonstrates no evidence of DVT within the bilateral lower extremities. ASSESSMENT: 1. Acute on chronic hypoxic and hypercapnic respiratory failure. 2. Morbid obesity. 3. Obstructive sleep apnea, suspected. 4. Human immunodeficiency virus. 5. Diarrhea. DISCUSSION AND PLAN: We will put in a ID consult and see if we can workup his diarrhea. This is the reason that he is decompensated. The patient likely lives in a chronic state of compensation for his severe respiratory acidosis. When he started having diarrhea, he likely lost that bicarb, resulting additional decompensation. Mechanical ventilation for 24 to 48 hours to see whether or not we can solve this diarrhea issue. Pulmonary Critical Care will continue to follow along while the patient remains in the hospital. Multiple ventilator adjustments have been made. He seems to settle out very nicely on pressure control ventilation. We will target saturations between 86% and 90%. I do not want him on too much oxygen as he likely requires a touch of hypoxemia in order to ventilate. CRITICAL CARE TIME: 30 minutes. Job ID: [id number]
[2018-12-08] MEDS: Aspirin 81 mg Enteric Coated Tablet PO SCH (11:17)
[2018-12-08] MEDS ORDERED: Pancrelipase DR 12000 1 CAP FS PRN (11:21)
[2018-12-08] MEDS ORDERED: Sodium Bicarbonate Tab 325 MG TAB PER TUBE PRN (11:21)
--- NOTE | 2018-12-08 16:57 | RAD ---
AP VIEW CHEST: 12/08/18 HISTORY: Ventilator dependent patient. AP view chest obtained on 12/08/18. Comparison made to previous exam from 12/07/18. AP view chest demonstrates cardiomegaly. Endotracheal tube is in good position. NG tube has been plac ed. Distal tip not visualized. There is extensive pulmonary vascular congestion. The mediastinum and cardiac silhouette are widened. This may be due to magnification. IMPRESSION: 1. Interval placement of an NG tube, distal tip not visualized. 2. Cardiomegaly and pulmonary vascular congestion. POS: [facility]
--- NOTE | 2018-12-08 19:44 | CON ---
DATE OF CONSULTATION: REASON FOR CONSULTATION: HIV infection, recently treated syphilis and now respiratory complications. HISTORY OF PRESENT ILLNESS: A 32-year-old, who has morbid obesity with hypoventilation syndrome, excellent adherence to antiretroviral therapy, who has chronic hypoventilation syndrome and polycythemia, which has never been properly managed because of lack of health insurance. The patient had been recently in the hospital and had been discharged, now he returns, sent from his primary care physician's office because of dyspnea, hypoxemia, and hypotension. Reportedly, he had been at his physician's office for a regular appointment. In the emergency room, his blood pressure was 92/62, pulse 94, respirations 19, temperature 98.1, and O2 saturation 87% on room air. He was tachycardic. Head exam was normal. The neck was normal. The respiratory examination describes clear breath sounds. The heart is described as regular rate and rhythm and he had no tenderness in the abdominal exam. His initial white cell count is 4.2, hemoglobin 16.9, and platelets 120 with 38% neutrophils and 14% bands. A pH 7.28, pCO2 of 76, and pO2 of 75. Sodium 134, creatinine 1.75 with a baseline of 1.09. The patient had stool lactoferrin submitted with elevated fecal lactoferrin. C. difficile antigen and toxin were negative. Campylobacter antigen and Shiga toxin assays negative as well. Final results on stool culture were unremarkable. The patient had a venogram completed, which showed no evidence of deep vein thrombosis. The patient was given inhalers, enoxaparin, lactated Ringer's, Genvoya, and Bactrim. The patient was admitted to the [facility] and he was evaluated by Dr. Parrish. Overnight, while in the restroom, he fell backwards and landed on his back, was unable to get up and placed on BiPAP and became unresponsive and then he was intubated electively brought to the ICU. Now seems to be when off sedation, responding to commands and seems to be aware of his surroundings. PAST MEDICAL HISTORY: Includes morbid obesity, longstanding HIV infection, cardiomyopathy, polycythemia, pulmonary embolism which is a presumptive diagnosis since testing was not done due to his weight. PAST SURGICAL HISTORY: Includes tonsillectomy. FAMILY HISTORY: End-stage renal disease and type 2 diabetes. SOCIAL HISTORY: Never smoker. Lives with family. The family does not know his HIV positive and he prefers that they not be told. CURRENT MEDICATIONS: Include: 1. Tylenol. 2. DuoNeb. 3. Creon. 4. Ecotrin. 5. Coreg. 6. Lovenox. 7. Pepcid. 8. Fentanyl p.r.n. 9. Ativan. 10. Morphine p.r.n. PHYSICAL EXAMINATION: VITAL SIGNS: T-max 99.4, blood pressure 108/56 off pressors, pulse 111, and O2 saturation 90%. His I's and O's have been positive and today are slightly negative. GENERAL: He has an indwelling Camargo catheter. The patient is sedated. Right now, he has oral tracheal intubation. HEENT: Pupils are miotic from sedation. LUNGS: Symmetric, clear breath sounds. HEART: S1 and S2. Diminished heart sounds. Regular rate. ABDOMEN: With very prominent panniculus. No guarding noted. Bowel sounds are diminished. EXTREMITIES: He has massive legs and arms, but no inflammatory changes noted in either joints or skin or feet. NEUROLOGIC: Not possible due to sedation at this point. It is flaccid. LABORATORY DATA: The white cell counts 5.4, hemoglobin 15, and platelets , 54% neutrophils, 4% bands. Sodium 134, creatinine 1.92, and chloride 95. Microbiology with negative blood cultures thus far. Urine culture, no growth at 12 hours. ASSESSMENT AND PLAN: 1. Morbid obesity with hypoventilation syndrome, untreated thus far. 2. Longstanding human immunodeficiency virus infection with adequate anti-retroviral intake and suppression of viral load, CD4 cell count has not rebounded as we usually expect to happen. 3. Worsening respiratory status with fall and hypoventilation syndrome, respiratory insufficiency, requiring intubation. DISCUSSION: At this point in time, the patient appears to not have sustained any major neurological insult and we will see how the weaning proceeds and eventually probably will need a tracheostomy placed or maybe just before that noninvasive methods to improve his respiratory status. He does not have insurance and so that will make it difficult to provide with adequate outpatient care and followup, and I am afraid that he will continue to be readmitted with this problem until the tracheostomy is placed. Regarding his HIV infection, Genvoya cannot be crushed and that administered through the NG tube, and now we will transition him to something that can be done that way to allow treatment while he is intubated. After that, then [facility]. His syphilis has already been treated. The Bactrim prophylaxis to be continued until his CD4 cell count rebounds above 200, although, the risk of him having Pneumocystis is minimal. Job ID: [id number]
[2018-12-08] MEDS: Lopinavir/Ritonavir 80 MG/20 MG per ML Oral Solution PO SCH (21:02)
[2018-12-09] MEDS: Propofol 1,000 MG/100 ML VIAL IV PRN ×6 (00:50→20:59)
[2018-12-09] MEDS: Piperacillin/Tazobactam 4.5 GM in Sodium Chloride 0.9% 100 ML IVPB SCH ×3 (01:00→18:40)
[2018-12-09 05:10] LABS: Anion Gap 13 mmol/L (10-20); BUN (Urea Nitrogen) 37 mg/dL (8.9-20.6); Calc. Creatinine Clearance 134 mL/min (70-130); Calcium 9.4 mg/dL (7.8-10.44); Carbon Dioxide 31 mmol/L (22-29); Chloride 95 mmol/L (98-107); Estimated GFR-MDRD 36; Glucose 101 mg/dL (70-105); Potassium 4.8 mmol/L (3.5-5.1); Sodium 134 mmol/L (136-145)
--- NOTE | 2018-12-09 05:59 | PDOC.FM ---
- Subjective Subjective: Ceasar Trejo seen at bedside this morning. There were no acute events overnight. Vent settings were changed yesterday due to yesterday morning's ABG showing alkalosis. Goal sats are 86-90%. Patient is on empiric antibiotic therapy. Vent Setting: PCV, f 11, Pi 17, PEEP 5, FiO2 23% Morning ABG pending - Objective MAR Reviewed: Yes Vital Signs & Weight: Vital Signs (12 hours) Temp Pulse Resp BP Pulse Ox 12/09/18 04:00 99.9 F H 22 H 12/09/18 02:58 107 H 12/09/18 02:57 89 L 12/09/18 02:00 25 H 12/09/18 00:00 99.7 F H 20 12/08/18 22:52 107 H 99/64 88 L 12/08/18 22:00 26 H 12/08/18 20:00 98.1 F 19 90 L 12/08/18 18:40 116 H 12/08/18 18:39 89 L 12/08/18 18:00 23 H Weight Admit Weight 221.625 kg Weight 232 kg Most Recent Monitor Data Heart Rate from ECG 105 NIBP 94/49 NIBP BP-Mean 65 Respiration from ECG 29 SpO2 89 I&O: 12/07/18 12/08/18 12/09/18 06:59 06:59 06:59 Intake Total 1575 1671 2419 Output Total 1250 530 896 Balance 325 1141 1523 Result Diagrams: 12/09/18 04:35 12/09/18 04:35 Phys Exam - Physical Examination sedated on mechanical ventilation HEENT: moist MMs, sclera anicteric Neck: supple, full ROM Respiratory: no wheezing, no rales, no rhonchi, clear to auscultation bilateral Cardiovascular: no significant murmur tachycardic, regular Gastrointestinal: soft, no distention Musculoskeletal: no edema, pulses present Deviation from normal: sedated Skin: no rash, cap refill <2 seconds Dx/Plan (1) Acute respiratory failure with hypoxia and hypercapnia Code(s): J96.01 - ACUTE RESPIRATORY FAILURE WITH HYPOXIA; J96.02 - ACUTE RESPIRATORY FAILURE WITH HYPERCAPNIA Status: Acute (2) Obesity hypoventilation syndrome Code(s): E66.2 - MORBID (SEVERE) OBESITY WITH ALVEOLAR HYPOVENTILATION Status : Suspected (3) HIV (human immunodeficiency virus infection) Code(s): B20 - HUMAN IMMUNODEFICIENCY VIRUS [HIV] DISEASE Status: Chronic (4) HTN (hypertension) Code(s): I10 - ESSENTIAL (PRIMARY) HYPERTENSION Status: Chronic (5) HLD (hyperlipidemia) Code(s): E78.5 - HYPERLIPIDEMIA, UNSPECIFIED Status: Chronic (6) Morbid obesity Code(s): E66.01 - MORBID (SEVERE) OBESITY DUE TO EXCESS CALORIES Status: Chronic - Plan Plan: This is a 32 yo male with PMH of HIV, CKD, HFrEF, pre-diabetes, latent syphilis , HLD, HTN 1) Acute Hypoxic Hypercapneic Respiratory Failure: likely 2/2 Pickwickian syndrome - Acute decompensation 12/07/18, Code Blue - Intubated 12/07/18, R fem CVC placed on 12/07/18, continue mechanical ventilation - Procal negative, likely not bacterial infection, covering with empiric Abx, zosyn and vancomycin (started 12/08) - Tang Duoneb - B/l LE doppler negative for DVT - Dr. Parrish Consulted for CCU management, appreciate recs 2) SIRS: likely 2/2 SOB, volume depletion, diarrhea, and HIV - Stool studies negative for campylobacter, Shiga toxin, E. coli O157. - Stool studies positive for fecal lactoferrin, this likely does not play a role in this pt's acute diarrhea - Continue empiric antibiotics, HIV meds 3) HFrEF - Elevated BNP, EF 45-50% on 06/08/18 - Will monitor for signs of fluid overload - strict I/Os, daily weights 4) DANIEL on CKD - Improving with maint IVFs 5) Thrombocytopenia - Continue to trend 6) Pickwickian syndrome - Recommend OP sleep study 7) HIV (CD4 250) - No current need for prophylaxis, controlled on HAART 8) Latent Syphilis - 2nd dose of Pen G during stay 9) Pre-diabetic -Outpatient Interviewing Clerk pt on heart healthy and diabetic diet 10) HLD -Continue home meds 11) HTN -Continue home meds Addendum - Attending - Attending Attestation Date/Time: 12/09/18 1330 I personally evaluated the patient and discussed the management with Dr. Orlando. I agree with the History, Examination, Assessment and Plan documented above with any addition or exceptions noted below. The patient remains on the vent. Pt has had an art line placed for accurate blood pressure readings. Pressors are being considered. Cultures to date are negative. Nurse states he has not had additional diarrhea. DANIEL is worsening likely 2/2 hypoperfusion. Will trend and if continues to increase, will consult nephrology.
[2018-12-09 06:11] LABS: Band 3 % (5-11); Eosinophils 1 % (0-10); Hemoglobin 16.2 g/dL (14.0-18.0); Hypochromia SLIGHT = 6-15 cells (100X) (0-5/hpf); Large Platelets SLIGHT; Lymphocytes 21 % (21-51); MDiff Complete? YES; Mean Corpuscular HGB CONC 29.8 g/dL (32.0-36.0); Mean Corpuscular Hemoglobin 26.9 pg (27.0-31.0); Mean Corpuscular Volume 90.2 fL (78.0-98.0); Mean Platelet Volume 10.6 fL (7.4-10.4); Monocytes 18 % (0-10); Neutrophil 55 % (42-75); Platelet Count 137 thou/uL (130-400); Platelet Morphology Comment Appears Adequate; RBC Distribution Width 15.1 % (11.5-14.5); Reactive Lymphocytes 2 % (0-10); Red Blood Cell (RBC) Count 6.04 mill/uL (4.70-6.10)
[2018-12-09] MEDS: Lactated Ringer's 1,000 ML IV SCH ×2 (07:26→16:26)
--- NOTE | 2018-12-09 08:43 | RAD ---
CHEST 1 VIEW: Date: 12/09/18 HISTORY: Intubated. Dyspnea. Follow-up. COMPARISON: 12/08/18. FINDINGS: Cardiac silhouette is magnified and enlarged. Pulmonary vasculature remains engorged with widespread reticulonodular interstitial prominence and mild air space disease. Mediastinum is midline. Lines and tubes appear unchanged in position. No evidence of pneumothorax. shelter monitor leads overlie the c hest. IMPRESSION: Cardiomegaly and pulmonary edema. Stable radiographic appearance of the chest. POS: [facility]
[2018-12-09] MEDS: Enoxaparin Sodium 40 MG/0.4 ML SYRINGE SC SCH ×2 (09:07→20:58)
[2018-12-09] MEDS: Spironolactone 25 MG TAB PO SCH (09:07)
[2018-12-09] MEDS: Aspirin 81 mg Enteric Coated Tablet PO SCH (09:07)
[2018-12-09] MEDS: Carvedilol 6.25 MG TAB PO SCH ×2 (09:07→16:26)
[2018-12-09] MEDS: Famotidine/PF 20 mg/2ml Vial SLOW IVP SCH (09:08)
--- NOTE | 2018-12-09 10:47 | PRG ---
DATE OF SERVICE: 12/09/2018 SERVICE: Pulmonary Medicine. INTERVAL HISTORY: The patient is doing fine overnight. There are no significant events. His urine output has been fantastic. Otherwise, he cannot provide any additional elements of the history. He is requiring some sedating medications. His blood pressures are up and down. We really are having a hard time getting accurate readings on him given his size. As such, we are not quite certain whether or not to give him boluses of fluid or diuretics. We are going to need to clarify at this point. PHYSICAL EXAMINATION: VITAL SIGNS: Afebrile with a T-max of 99.9, pulse 109, blood pressure 105/62, respirations 25, saturation 89% on 23% FiO2 and a PEEP of 5. GENERAL: The patient is intubated and sedated. HEENT: Normocephalic and atraumatic. Sclerae white. Conjunctivae pink. Oral mucosa is moist without lesions. LUNGS: Decent air entry. Rhonchi are present. There is no prolonged expiratory phase or wheezing. HEART: Normal rate. Regular. ABDOMEN: Soft, nontender, nondistended. Bowel sounds are positive. MUSCULOSKELETAL: No cyanosis or clubbing. No pitting in the bilateral lower extremities. NEUROLOGIC: Grossly nonfocal. LABORATORY DATA: WBC 7.0, hemoglobin 16.2, and platelets 137,000. Neutrophils are 55% on top of only 3% bands. Monocytes are elevated. Creatinine 2.56 and up trending, BUN 37. Basic metabolic profile is otherwise unremarkable. Blood cultures x2, urine culture unremarkable. Stool lactoferrin was positive. Campylobacter, shiga, and C. diff were all unremarkable. IMAGING: Chest x-ray demonstrates cardiomegaly and pulmonary edema. Endotracheal tube is 6 cm above the level of the ismael. The interstitium is prominent. ASSESSMENT: 1. Acute on chronic hypoxic and hypercapnic respiratory failure. 2. Morbid obesity. 3. Obstructive sleep apnea, likely horrendous. 4. Human immunodeficiency viruses. 5. Diarrhea, likely contributing to his respiratory event. DISCUSSION AND PLAN: I am going to put an arterial line so that we can closely watch his blood pressure. If it is truly low, he will need to be initiated on some pressors. If on the other hand, it is high, we may need to introduce some diuretics to him. Pulmonary/Critical Care will continue to follow along. I would like his saturations to be between 86% and 90% moving forward. Pulmonary/Critical Care will continue to follow very closely. The patient is not in a place where we can consider him for extubation. CRITICAL CARE TIME: 30 minutes. Job ID: [id number]
[2018-12-09] MEDS ORDERED: Norepinephrine 8 MG/0.9% NS 250 ML ONE (10:52)
[2018-12-09 11:39] LABS: Actual Bicarbonate (HCO3a) 28.3 mEq/L (22-28); Base Excess (BEa) 1.6 mEq/L (-2.0 to +3.0); CO2 Tension 51.3 mmHg (35.0-45.0); Calcium, Ionized 1.17 mmol/L (1.12-1.30); Carboxyhemoglobin (COHb) 2.1 gm% (0.0-3.0); Hemoglobin (Hb) 17.1 g/dL (14.0-18.0); O2 Tension (PaO2) 70.7 mmHg (80.0-100.0); pH, Arterial 7.36 (7.35-7.45)
[2018-12-09 11:45] LABS: Puncture Site ALINE
[2018-12-09] MEDS: Elviteg/Cob/Emtri/Tenof Alafen [Genvoya Tablet] 1 TAB PO SCH (11:59)
[2018-12-09] MEDS: Lopinavir/Ritonavir 80 MG/20 MG per ML Oral Solution PO SCH ×2 (11:59→21:17)
[2018-12-09 14:32] LABS: Vancomycin, Trough 35.3 ug/mL
[2018-12-09] MEDS: Norepinephrine 8 MG/250 ML BAG IVPB PRN (22:50)
[2018-12-10] MEDS: Piperacillin/Tazobactam 4.5 GM in Sodium Chloride 0.9% 100 ML IVPB SCH ×3 (02:30→18:04)
--- NOTE | 2018-12-10 03:34 | OP ---
DATE OF PROCEDURE: 12/09/2018 SERVICE: Pulmonary Medicine. PROCEDURE PERFORMED: Left-sided radial artery catheter placement. CONSENT: The risks and benefits of this procedure were discussed with the power of personal injury attorney. All questions were answered and alternative options explained. The patient was unable to provide consent secondary to intubation and sedation. MEDICATIONS USED: None. INDICATION: Shock. DESCRIPTION OF PROCEDURE: Time-out was performed by the procedure team and patient. The patient was positively identified using name and date of . The procedure site was marked. Vital sign monitoring was accomplished by noninvasive hemodynamic monitoring, pulse oximetry, and telemetry. With the patient in the supine position, the left wrist was placed in an extended position and the radial pulse was palpated. The skin was prepped and draped in usual sterile fashion. The radial artery was cannulated under direct palpation on the first attempt with return of bright red pulsatile blood. The arterial catheter was inserted without difficulty and sutured in place with 2-0 nylon suture x1. The catheter was attached to the monitor and appropriate arterial waveform was noted. A sterile dressing was applied and the procedure was terminated. ESTIMATED BLOOD LOSS: Less than 2 mL. COMPLICATIONS: None. Job ID: [id number]
[2018-12-10] MEDS: Propofol 1,000 MG/100 ML VIAL IV PRN ×7 (04:02→23:42)
[2018-12-10 04:45] LABS: Anion Gap 12 mmol/L (10-20); BUN (Urea Nitrogen) 33 mg/dL (8.9-20.6); Calc. Creatinine Clearance 204 mL/min (70-130); Calcium 9.3 mg/dL (7.8-10.44); Carbon Dioxide 30 mmol/L (22-29); Chloride 99 mmol/L (98-107); Estimated GFR-MDRD 56; Glucose 120 mg/dL (70-105); Potassium 4.7 mmol/L (3.5-5.1); Sodium 136 mmol/L (136-145); Vancomycin, Random 15.2 ug/mL (See Comment)
[2018-12-10 04:47] LABS: Hemoglobin 16.3 g/dL (14.0-18.0); Lymphocytes 10 % (21-51); MDiff Complete? YES; Mean Corpuscular HGB CONC 29.6 g/dL (32.0-36.0); Mean Corpuscular Hemoglobin 26.5 pg (27.0-31.0); Mean Corpuscular Volume 89.3 fL (78.0-98.0); Mean Platelet Volume 10.3 fL (7.4-10.4); Monocytes 13 % (0-10); Neutrophil 63 % (42-75); Platelet Count 152 thou/uL (130-400); Platelet Morphology Comment Appears Adequate; RBC Distribution Width 15.2 % (11.5-14.5); RBC Morphology Normal; Reactive Lymphocytes 14 % (0-10); Red Blood Cell (RBC) Count 6.17 mill/uL (4.70-6.10); White Blood Cell (WBC) Count 7.4 thou/uL (4.8-10.8)
[2018-12-10] MEDS: Lactated Ringer's 1,000 ML IV SCH (05:48)
--- NOTE | 2018-12-10 05:50 | PDOC.FM ---
- Subjective Subjective: Ceasar Trejo seen at bedside this morning. He remains intubated, sedated, on mechanical ventilation. He had no acute events overnight. Yesterday, 12/09/18, Dr. Parrish placed Arterial line for more accurate BP monitoring. Initial BP was in the 90s systolic and Dr. Parrish started patient on Levophed ggt. Pt's BPs have remained adequate since that time. His urine output has increased as well over the last 12 hours. Has had about 3.5 L out of his reveles in the last 24 hours. Current Vent Settings: PCV, f 11, FiO2 41%, Pi 23, PEEP 7 ABG 12/09: pH 7.36, pCO2 51.3, pO2 70.7 - Objective MAR Reviewed: Yes Vital Signs & Weight: Vital Signs (12 hours) Temp Pulse Resp BP Pulse Ox 12/10/18 04:00 98.2 F 12/10/18 03:17 90 12/10/18 00:00 97.8 F 12/09/18 22:46 90 122/66 12/09/18 20:00 97.9 F 98 12/09/18 18:46 90 12/09/18 18:00 14 Weight Admit Weight 221.625 kg Weight 232.6 kg Most Recent Monitor Data Heart Rate from ECG 92 NIBP 56/47 NIBP BP-Mean 52 Respiration from ECG 22 SpO2 96 I&O: 12/08/18 12/09/18 12/10/18 06:59 06:59 06:59 Intake Total 1671 4696 3996 Output Total 842 681 0566 Balance 1141 3730 606 Result Diagrams: 12/10/18 04:10 12/10/18 04:10 Phys Exam - Physical Examination sedated on mechanical ventilation HEENT: moist MMs, sclera anicteric Neck: no JVD, supple bilateral rhonchi heard anteriorly Cardiovascular: RRR, no significant murmur, no rub Gastrointestinal: soft, positive bowel sounds Musculoskeletal: no edema, pulses present Deviation from normal: sedated Skin: normal turgor, cap refill <2 seconds Dx/Plan (1) Acute respiratory failure with hypoxia and hypercapnia Code(s): J96.01 - ACUTE RESPIRATORY FAILURE WITH HYPOXIA; J96.02 - ACUTE RESPIRATORY FAILURE WITH HYPERCAPNIA Status: Acute (2) Obesity hypoventilation syndrome Code(s): E66.2 - MORBID (SEVERE) OBESITY WITH ALVEOLAR HYPOVENTILATION Status : Suspected (3) HIV (human immunodeficiency virus infection) Code(s): B20 - HUMAN IMMUNODEFICIENCY VIRUS [HIV] DISEASE Status: Chronic (4) HTN (hypertension) Code(s): I10 - ESSENTIAL (PRIMARY) HYPERTENSION Status: Chronic (5) HLD (hyperlipidemia) Code(s): E78.5 - HYPERLIPIDEMIA, UNSPECIFIED Status: Chronic (6) Morbid obesity Code(s): E66.01 - MORBID (SEVERE) OBESITY DUE TO EXCESS CALORIES Status: Chronic - Plan Plan: This is a 32 yo male with PMH of HIV, CKD, HFrEF, pre-diabetes, latent syphilis , HLD, HTN 1) Acute Hypoxic Hypercapneic Respiratory Failure: likely 2/2 Pickwickian syndrome - Acute decompensation 12/07/18, Code Blue - Intubated 12/07/18, R fem CVC placed on 12/07/18, continue mechanical ventilation - Procal negative, likely not bacterial infection, covering with empiric Abx, zosyn and vancomycin (started 12/08) - Tang Duoneb - B/l LE doppler negative for DVT - Dr. Parrish Consulted for CCU management, appreciate recs 2) SIRS: likely 2/2 SOB, volume depletion, diarrhea, and HIV - Stool studies negative for campylobacter, Shiga toxin, E. coli O157. - Stool studies positive for fecal lactoferrin, this likely does not play a role in this pt's acute diarrhea - Continue empiric antibiotics, HIV meds - Levophed ggt started 12/09 due to low pressures, art line placed 12/09 for closer BP monitoring 3) HFrEF - Elevated BNP, EF 45-50% on 06/08/18 - Will monitor for signs of fluid overload - strict I/Os, daily weights 4) DANIEL on CKD - Improving with maint IVFs 5) Thrombocytopenia - Continue to trend 6) Pickwickian syndrome - Recommend OP sleep study 7) HIV (CD4 250) - No current need for prophylaxis, controlled on HAART 8) Latent Syphilis - 2nd dose of Pen G during stay 9) Pre-diabetic -Digital Forensic Analyst pt on heart healthy and diabetic diet 10) HLD -Continue home meds 11) HTN -Continue home meds Addendum - Attending - Attending Attestation Date/Time: 12/10/18 2366 I personally evaluated the patient and discussed the management with Dr. Orlando I agree with the History, Examination, Assessment and Plan documented above with any addition or exceptions noted below - Patient intubated and sedated. Afebrile VSS. A/P: 1) Acute and chronic hypercapneic respiratory failure- continue vent support; plans as per pulmonary. 2) HIV- appreciate recommednations from ID. Continue current meds. 3) Volume depletion- improved with fluids; MAP improved and urine output adequate.
--- NOTE | 2018-12-10 08:31 | RAD ---
SINGLE VIEW CHEST: HISTORY: Ventilated patient with respiratory failure. COMPARISON: 12/09/2018 FINDINGS: A single view of the chest shows an enlarged but stable cardiomediastinal silhouette. The endotrache al tube and NG tube are unchanged in position. There are bilateral veil-like opacities, which likely represent small layering pleural effusions. IMPRESSION: Small bilateral pleural effusions. POS: [facility]
[2018-12-10] MEDS: Vancomycin HCl 1 GM in Premix Bag 1 BAG IVPB SCH ×3 (08:48→21:02)
[2018-12-10] MEDS: Lopinavir/Ritonavir 80 MG/20 MG per ML Oral Solution PO SCH ×2 (08:57→20:43)
[2018-12-10] MEDS: Famotidine/PF 20 mg/2ml Vial SLOW IVP SCH (08:57)
[2018-12-10] MEDS: Enoxaparin Sodium 40 MG/0.4 ML SYRINGE SC SCH ×2 (08:57→20:30)
[2018-12-10] MEDS: Sulfameth/Trimethoprim DS 800-160mg TAB PO SCH (08:57)
[2018-12-10] MEDS: Aspirin 81 mg Enteric Coated Tablet PO SCH (08:58)
[2018-12-10] MEDS: Spironolactone 25 MG TAB PO SCH (08:58)
[2018-12-10] MEDS: Elviteg/Cob/Emtri/Tenof Alafen [Genvoya Tablet] 1 TAB PO SCH (08:58)
--- NOTE | 2018-12-10 14:27 | PDOC.OP ---
Operative Note - Operative Note Operative Note: (see progress note from date of code for additional details). Procedure: CVC insertion, ultrasound guided Indications: hypotension Procedure in detail: Patient was prepped with hibiclens and chlorapreps. After a vascular survey the right femoral vein was chosen and identified. Under sterile technique with gown/mask/cap/gloves/full body drape with right femoral vein was accessed under ultrasound guidance, dark red non-pulsatile blood noted , and wire placed. During dilation the wire kinked and was withdrawn. The vein was accessed a second time under ultrasound guided and a CVC placed successful using seldinger technique. The line was sutured and taped in place and sterile dressing applied. All ports withdrawn and flushed. No immediate complications. Sharps discarded.
--- NOTE | 2018-12-10 15:20 | PRG ---
DATE OF SERVICE: 12/10/2018 SERVICE: Pulmonary Medicine. INTERVAL HISTORY: The patient is doing fine from respiratory standpoint. He is on mechanical ventilation. I tried to turn down his pressure support. Unfortunately, he could just simply not tolerate that in his current position. We are going to see if we can get the bed to sit in a more upright position so that he can better tolerate these lower pressures. At this point, he is completely unweanable from mechanical ventilation because of that. PHYSICAL EXAMINATION: VITAL SIGNS: Afebrile, pulse 91, blood pressure 98/51, respirations 12, saturation 96% on room air. GENERAL: The patient is awake and alert, in no apparent distress. LUNGS: Decent air entry. There is no prolonged expiratory phase or wheezing. Rhonchi/crackles are present. HEART: Normal rate. Regular. ABDOMEN: Soft, nontender, nondistended. Bowel sounds are positive. MUSCULOSKELETAL: No cyanosis or clubbing. There is diffuse 2+ edema. : No Camargo. NEUROLOGIC: Grossly nonfocal. LABORATORY DATA: WBC 7.4, hemoglobin 16.3, platelets 152,000 and improving. Neutrophil count is normal. He has got 14% reactive lymphocytes. Creatinine 1.72 and beautifully downtrending, BUN 33. Basic metabolic profile is otherwise unremarkable. His bicarb is only 30, which is likely abnormally low for him because of diarrhea. Vancomycin trough 35. C. diff antigen and toxin is negative. That being said, stool lactoferrin is positive. I did Campylobacter antigen and shiga toxin that was normal, stool cultures are also unremarkable. Blood cultures x2 and urine culture as well as respiratory culture all essentially unremarkable. IMAGING: Chest x-ray demonstrates absolutely nothing. This is underpenetrated. Cardiomegaly is probably present. Endotracheal tube is probably in the trachea. There is probably some bilateral pleural effusions. ASSESSMENT: 1. Acute on chronic hypoxic and hypercapnic respiratory failure. 2. Morbid obesity. 3. Obstructive sleep apnea, likely horrendous. 4. Human immunodeficiency viruses. 5. Diarrhea, contributing to the patient's respiratory failure. 6. Volume overload, suspected. DISCUSSION AND PLAN: Now that the patient's blood pressure is improved, hopefully will be able to start to diurese him through time. I am going to minimize our IV fluids over the next 24 hours. I am going to consult GI, so that they can help us expeditiously workup the diarrhea. Without fixing this, I do not think we are going to be able to liberate him from mechanical ventilation in a timely fashion. There is no need to get additional chest x-rays as they really not terribly helpful. We will continue to follow him very closely. Empiric antibiotics are currently on board. It is not clear what really directing them towards. Multiple adjustments have been made to the ventilator, but we had to go back up on support because in his current supine position, he really cannot breathe. CRITICAL CARE TIME: 30 minutes. Job ID: [id number]
--- NOTE | 2018-12-10 22:40 | CON ---
DATE OF CONSULTATION: 12/10/2018 CHIEF COMPLAINT: Diarrhea. HISTORY OF PRESENT ILLNESS: Mr. Trejo is a 32-year-old man with HIV and obesity hypoventilation syndrome who was admitted to the hospital on 12/05/2018 with diarrhea and dehydration and respiratory failure with hypoxia. He had been in the hospital recently with CHF exacerbation. He was given diuresis and following the diuresis, he developed severe diarrhea and then became significantly dehydrated. He reportedly had multiple liquidy stools per day prior to admission. After admission, he still had diarrhea for a couple of days. However, he has had no stool output yesterday or today. On 12/07/2018, he developed worsening respiratory failure, and was intubated and placed on mechanical ventilation. The electrolyte abnormalities and loss of bicarb associated with the diarrhea are felt to be complicating his acid-base status and ability to wean from the ventilator. GI was consulted to further evaluate the diarrhea. The patient is intubated and sedated, and unable to significantly contribute history at this point. PAST MEDICAL HISTORY: HIV, obesity hypoventilation syndrome, presumptive diagnosis of pulmonary embolism previously, cardiomyopathy. The patient was recently treated for syphilis. PAST SURGICAL HISTORY: Tonsillectomy. FAMILY HISTORY: Negative for GI malignancy. SOCIAL HISTORY: No alcohol, tobacco, or drugs. ALLERGIES: NO KNOWN DRUG ALLERGIES. MEDICATIONS: Current inpatient medications include; 1. Aspirin. 2. Carvedilol. 3. Enoxaparin. 4. He is on antiviral medications for the HIV. 5. Famotidine. 6. Pancreatic enzymes. 7. Levophed. 8. Zosyn. 9. Vancomycin. 10. Bactrim for PCP prophylaxis. REVIEW OF SYSTEMS: Unobtainable as the patient is sedated on the ventilator. PHYSICAL EXAMINATION: VITAL SIGNS: Pulse 103, blood pressure 104/57, temperature 100.1. GENERAL: He is morbidly obese. Nursing reports his weight is around 500 pounds. He has an endotracheal tube in place. LUNGS: Clear to auscultation bilaterally. HEART: Regular rate and rhythm. ABDOMEN: Soft, nondistended. Bowel sounds are active. EXTREMITIES: 1+ pitting lower extremity edema. LABORATORY DATA: White blood cell count 7.4, hemoglobin 16.3, platelets 152. INR 1.2. Creatinine 1.72. CD4 count 186. IMPRESSION: Acute diarrhea. This apparently started about a week ago. He has had no stool output reported today or yesterday. Stool studies have been negative for Clostridium difficile. Culture was negative. Campylobacter and Shiga toxin were negative. Lactoferrin was elevated, but this is nonspecific. At this stage, he presumptively has an acute infectious gastroenteritis that appears to be improving clinically. He is tolerating a slow rate of tube feeds. He is on multiple broad-spectrum antibiotics, which could certainly contribute to persistent diarrhea. This should be weaned as possible. RECOMMENDATIONS: 1. If the diarrhea worsens again, then additional stool studies can be sent. Again, try to wean the antibiotics as indicated. His CD4 count is a little lower than 200, but he should not be significantly at risk for unusual GI infections related to that. Cryptosporidium could be considered for additional testing along with stool ova and parasites if the diarrhea returns. Fecal fat could also be checked if the diarrhea returns. If the diarrhea becomes persistent, then lower endoscopy can also be performed while on mechanical ventilation. 2. I will continue to follow up his status tomorrow. Job ID: [id number]
[2018-12-11] MEDS: Piperacillin/Tazobactam 4.5 GM in Sodium Chloride 0.9% 100 ML IVPB SCH ×3 (01:37→17:04)
[2018-12-11] MEDS: Propofol 1,000 MG/100 ML VIAL IV PRN ×6 (01:37→23:10)
[2018-12-11 06:11] LABS: Anion Gap 14 mmol/L (10-20); BUN (Urea Nitrogen) 33 mg/dL (8.9-20.6); Calc. Creatinine Clearance 191 mL/min (70-130); Calcium 9.3 mg/dL (7.8-10.44); Carbon Dioxide 29 mmol/L (22-29); Chloride 98 mmol/L (98-107); Estimated GFR-MDRD 52; Glucose 99 mg/dL (70-105); Magnesium 2.2 mg/dL (1.6-2.6); Potassium 6.3 mmol/L (3.5-5.1); Sodium 135 mmol/L (136-145)
[2018-12-11 06:12] LABS: Vancomycin, Trough 21.1 ug/mL
[2018-12-11 06:13] LABS: Phosphorus 4.2 mg/dL (2.3-4.7)
[2018-12-11 06:14] LABS: Band 4 % (5-11); Eosinophils 2 % (0-10); Hemoglobin 15.3 g/dL (14.0-18.0); Lymphocytes 10 % (21-51); MDiff Complete? YES; Mean Corpuscular HGB CONC 29.5 g/dL (32.0-36.0); Mean Corpuscular Hemoglobin 26.7 pg (27.0-31.0); Mean Corpuscular Volume 90.5 fL (78.0-98.0); Mean Platelet Volume 10.1 fL (7.4-10.4); Monocytes 24 % (0-10); Neutrophil 60 % (42-75); Platelet Count 153 thou/uL (130-400); RBC Distribution Width 15.1 % (11.5-14.5); Red Blood Cell (RBC) Count 5.73 mill/uL (4.70-6.10); White Blood Cell (WBC) Count 8.5 thou/uL (4.8-10.8)
[2018-12-11] MEDS: Vancomycin HCl 1 GM in Premix Bag 1 BAG IVPB SCH (06:44)
--- NOTE | 2018-12-11 08:32 | PRG ---
DATE OF SERVICE: 12/10/2018 Mr. Trejo is intubated in the ICU. He is apparently having some diarrhea. PHYSICAL EXAMINATION: VITAL SIGNS: His temperature max is 99.9, blood pressure is 106/58, O2 saturations 98%, was sedated. HEENT: Pupils are miotic. LUNGS: Symmetric air entry. HEART: S1, S2. Regular rate. ABDOMEN: Somewhat distended, but difficult to assess due to size of the panniculus. LABORATORY DATA: Camargo catheterization, outputs are numbered. The patient has had positive fluid balance over the past few days. White cell count is 7.4, hemoglobin 16, platelets are 152, 63% neutrophils. Creatinine is 1.72, sodium 135, potassium 3.7. Blood culture negative. Urine culture negative. C. diff negative. ASSESSMENT AND DISCUSSION: 1. Longstanding human immunodeficiency virus infection, well controlled with subnormal CD4 response. 2. Morbid obesity hypoventilation syndrome. 3. Polycythemia. 4. Respiratory status worsened, requiring intubation. 5. Treated syphilis. 6. Diarrhea. We will evaluate. 7. The patient to continue on the current anti-retroviral therapy. The diarrhea is probably secondary to the use of Kaletra, which causes diarrhea frequently. It is unlikely that he has an opportunistic infectious processes at this point in time. He is at risk for developing complications such as line sepsis in ICU, pneumonias, and so one. Job ID: [id number]
[2018-12-11] MEDS: Aspirin 81 mg Enteric Coated Tablet PO SCH (08:40)
[2018-12-11] MEDS: Famotidine/PF 20 mg/2ml Vial SLOW IVP SCH (08:40)
[2018-12-11] MEDS: Enoxaparin Sodium 40 MG/0.4 ML SYRINGE SC SCH ×2 (08:41→20:09)
[2018-12-11] MEDS: Lopinavir/Ritonavir 80 MG/20 MG per ML Oral Solution PO SCH (08:46)
[2018-12-11] MEDS: Elviteg/Cob/Emtri/Tenof Alafen [Genvoya Tablet] 1 TAB PO SCH (09:07)
--- NOTE | 2018-12-11 10:23 | PDOC.FM ---
- Subjective Subjective: Ceasar Trejo seen at bedside this morning. He remains intubated, sedated, on mechanical ventilation. He had no acute events overnight. On 12/09/18, Dr. Parrish placed Arterial line for more accurate BP monitoring and levophed was started. Levophed was discontinued on 12/10, BPs have remained stable since that time. Urine output has been about 30 mL/hr since discontinuing levophed. Current Vent Settings: PCV, f 11, FiO2 32%, Pi 17, Psupp 21, PEEP 7 - Objective MAR Reviewed: Yes Vital Signs & Weight: Vital Signs (12 hours) Temp Pulse Resp Pulse Ox 12/11/18 08:00 99.9 F H 25 H 12/11/18 07:17 93 12/11/18 06:00 31 H 12/11/18 04:00 99.8 F H 30 H 12/11/18 02:49 101 H 36 H 12/11/18 02:00 26 H 12/11/18 00:00 100.0 F H 34 H 12/10/18 22:26 101 H 40 H 95 Weight Admit Weight 221.625 kg Weight 230.1 kg Most Recent Monitor Data Heart Rate from ECG 94 NIBP 150/88 NIBP BP-Mean 123 Respiration from ECG 13 SpO2 85 I&O: 12/10/18 12/11/18 12/12/18 06:59 06:59 06:59 Intake Total 3996 3036 Output Total 3565 2550 155 Balance 431 486 -155 Result Diagrams: 12/11/18 05:23 12/11/18 05:23 Radiology Reviewed by me: Yes Phys Exam - Physical Examination sedated on mechanical ventilation HEENT: moist MMs, sclera anicteric Neck: no JVD, supple Respiratory: no wheezing, no rales, no rhonchi, clear to auscultation bilateral Cardiovascular: RRR, no significant murmur Gastrointestinal: soft, no distention hypoactive bowel sounds Musculoskeletal: pulses present, edema present Deviation from normal: sedated Skin: normal turgor, cap refill <2 seconds Dx/Plan (1) Acute respiratory failure with hypoxia and hypercapnia Code(s): J96.01 - ACUTE RESPIRATORY FAILURE WITH HYPOXIA; J96.02 - ACUTE RESPIRATORY FAILURE WITH HYPERCAPNIA Status: Acute (2) Obesity hypoventilation syndrome Code(s): E66.2 - MORBID (SEVERE) OBESITY WITH ALVEOLAR HYPOVENTILATION Status : Suspected (3) HIV (human immunodeficiency virus infection) Code(s): B20 - HUMAN IMMUNODEFICIENCY VIRUS [HIV] DISEASE Status: Chronic (4) HTN (hypertension) Code(s): I10 - ESSENTIAL (PRIMARY) HYPERTENSION Status: Chronic (5) HLD (hyperlipidemia) Code(s): E78.5 - HYPERLIPIDEMIA, UNSPECIFIED Status: Chronic (6) Morbid obesity Code(s): E66.01 - MORBID (SEVERE) OBESITY DUE TO EXCESS CALORIES Status: Chronic - Plan Plan: This is a 32 yo male with PMH of HIV, CKD, HFrEF, pre-diabetes, latent syphilis , HLD, HTN 1) Acute Hypoxic Hypercapneic Respiratory Failure: likely 2/2 Pickwickian syndrome - Acute decompensation 12/07/18, Code Blue - Intubated 12/07/18, R fem CVC in place from 12/07 to 12/11, continue mechanical ventilation - Procal negative, likely not bacterial infection, covering with empiric Abx, zosyn and vancomycin (started 12/08) - Tang Duoneb - B/l LE doppler negative for DVT - Dr. Parrish Consulted for CCU management, appreciate recs 2) SIRS: likely 2/2 SOB, volume depletion, diarrhea, and HIV - Stool studies negative for campylobacter, Shiga toxin, E. coli O157. - Stool studies positive for fecal lactoferrin, this likely does not play a role in this pt's acute diarrhea - Continue empiric antibiotics, HIV meds - Levophed ggt started 12/09 due to low pressures, art line placed 12/09 for closer BP monitoring, Levo ggt d/c'd on 12/10 - additional stool labs pending 3) HFrEF - Elevated BNP, EF 45-50% on 06/08/18 - Will monitor for signs of fluid overload - strict I/Os, daily weights 4) DANIEL on CKD - Improving with maint IVFs 5) Thrombocytopenia: resolved - Continue to trend, currently 153 6) Pickwickian syndrome - Recommend OP sleep study upon discharge 7) HIV (CD4 250) - No current need for prophylaxis, controlled on HAART - Dr. Chapin consulted - HIV therapy has been modified so that patient can receive crushed meds through feeding tube 8) Latent Syphilis-treated - 2nd dose of Pen G during stay 9) HLD -Continue home meds 10) HTN -holding home meds Addendum - Attending - Attending Attestation Date/Time: 12/11/18 0295 I personally evaluated the patient and discussed the management with Dr. Orlando I agree with the History, Examination, Assessment and Plan documented above with any addition or exceptions noted below- Patient intubated and sedated. Afebrile VSS. A/P: 1) Acute on chronic respiratory failure - continue vent support; Plans as per pulmonary. 2) Hyperkalemia- normal until today- spironolactone d/c'd yesterday. Will repeat lab. 3) HIV- continue HAART. 4) Diarrhea - appreciate GI input. Continue to monitor.
[2018-12-11 10:43] LABS: Potassium 5.3 mmol/L (3.5-5.1)
[2018-12-11] MEDS: Vancomycin HCl 750 MG in Sodium Chloride 0.9% 250 ML 250 ML IVPB SCH ×2 (14:10→21:10)
--- NOTE | 2018-12-11 15:57 | PRG ---
DATE OF SERVICE: 12/11/2018 SERVICE: Pulmonary Medicine. INTERVAL HISTORY: The patient is doing okay from respiratory standpoint. That being said, I want to decrease his pressure again, he started having increasing work of breathing. I really do not think that we are going to be moving fast enough in the right direction to prevent him from getting a tracheostomy tube. That being said, I would like to give him a touch more time. He cannot provide any additional elements of the history. Otherwise, there has been no interval change to his condition. PHYSICAL EXAMINATION: VITAL SIGNS: Afebrile with a T-max of 100.1. Pulse 88, blood pressure 110/57, respirations 26, and saturation 92% on 33% FiO2 and PEEP of 5. GENERAL: The patient is intubated. He is requiring some sedation to stay comfortable. That being said, he will wake up with gentle stimulation and stay awake for less than 10 seconds before drifting off back to sleep with no stimulation. LABORATORY DATA: WBC 8.5, hemoglobin 15.3, platelets 153,000 and stable x2 days. INR 1.2. Creatinine 1.84, BUN 33. Basic metabolic profile is otherwise unremarkable. Cortisol level is 18.7, phosphorus 4.2. Potassium was 6.3, but is actually better at 5.3 on a redraw. Vancomycin trough is improved to 21. Parasite screen is negative for Giardia and Cryptosporidium. Respiratory culture, blood cultures x2, urine culture all unremarkable. ASSESSMENT: 1. Acute hypoxic and hypercapnic respiratory failure. 2. Morbid obesity. 3. Obstructive sleep apnea, likely horrendous. 4. Human immunodeficiency virus. 5. Diarrhea, possibly side effect of Keytruda. 6. Volume overload. DISCUSSION AND PLAN: The patient is doing okay from a respiratory standpoint. The kidney injury may be secondary to recent low blood pressures and/or the vancomycin toxicity. The patient continues to have fairly significant diarrhea. If the anti retroviral is causing this, needs to be discontinued/interrupted. The patient's bicarb should be probably 36 or 37. Until this occurs, I really do not think that he is weanable from mechanical ventilator. Pulmonary/Critical Care will continue to follow along. Critical care time: 30 minutes. Job ID: [id number] [facility]
--- NOTE | 2018-12-11 22:28 | PRG ---
DATE OF SERVICE: 12/11/2018 SUBJECTIVE: Mr. Trejo remains intubated in the CCU on mechanical ventilation. He had 2 loose stools last night, but has had no stool output through the day today. He is tolerating tube feeds at a low rate. OBJECTIVE: VITAL SIGNS: Temperature 99.8, pulse 91, blood pressure 104/62. GENERAL: He is in no acute distress, sedated on vent. LUNGS: Clear to auscultation bilaterally. HEART: Regular rate and rhythm. ABDOMEN: Soft, nontender, nondistended. Bowel sounds are present. EXTREMITIES: 1+ pitting lower extremity edema. LABORATORY DATA: White blood cell count 8.5, hemoglobin 15.3, platelets 153. Creatinine 1.84. IMPRESSION: Acute diarrhea. This appears to be improving overall compared to the time of admission. His stool studies have been negative. He may have had an acute infectious diarrhea prior to admission. That appears to have improved and now he could be having diarrhea related to his antivirals or antibiotics. The diarrhea overall now is much improved and we will follow this clinically. RECOMMENDATIONS: 1. He is tolerating tube feeds at the current rate. 2. I will sign off for now. Please call if GI can be of assistance. Job ID: [id number]
[2018-12-12] MEDS: Piperacillin/Tazobactam 4.5 GM in Sodium Chloride 0.9% 100 ML IVPB SCH ×3 (02:26→17:15)
[2018-12-12] MEDS: Propofol 1,000 MG/100 ML VIAL IV PRN ×7 (02:30→23:57)
[2018-12-12 03:38] LABS: Anion Gap 12 mmol/L (10-20); BUN (Urea Nitrogen) 39 mg/dL (8.9-20.6); Calc. Creatinine Clearance 191 mL/min (70-130); Calcium 9.7 mg/dL (7.8-10.44); Carbon Dioxide 29 mmol/L (22-29); Chloride 101 mmol/L (98-107); Estimated GFR-MDRD 53; Glucose 105 mg/dL (70-105); Potassium 5.2 mmol/L (3.5-5.1); Sodium 137 mmol/L (136-145)
[2018-12-12 03:40] LABS: Band 7 % (5-11); Eosinophils 1 % (0-10); Hemoglobin 15.3 g/dL (14.0-18.0); Lymphocytes 16 % (21-51); MDiff Complete? YES; Mean Corpuscular HGB CONC 29.8 g/dL (32.0-36.0); Mean Corpuscular Hemoglobin 26.2 pg (27.0-31.0); Mean Corpuscular Volume 88.1 fL (78.0-98.0); Mean Platelet Volume 9.9 fL (7.4-10.4); Monocytes 17 % (0-10); Neutrophil 59 % (42-75); Platelet Count 166 thou/uL (130-400); RBC Distribution Width 15.2 % (11.5-14.5); Red Blood Cell (RBC) Count 5.83 mill/uL (4.70-6.10); White Blood Cell (WBC) Count 7.9 thou/uL (4.8-10.8)
[2018-12-12 05:27] LABS: Vancomycin, Trough 23.4 ug/mL
--- NOTE | 2018-12-12 06:38 | PDOC.FM ---
- Subjective Subjective: Ceasar Trejo seen at bedside this morning. There were no acute events overnight. During sedation vacation, he was able to answer yes and no questions by nodding. His urine output has increased compared to yesterday. Yesterday, at the instruction of Dr. Chapin, we discontinued Kaletra with the hopes of improving diarrhea. No fevers overnight. Levophed discontinued on 12/10 and BPs have remained stable and wnl since that time. - Objective MAR Reviewed: Yes Vital Signs & Weight: Vital Signs (12 hours) Temp Pulse Resp BP Pulse Ox 12/12/18 04:00 100.3 F H 23 H 12/12/18 02:10 92 121/76 12/12/18 02:00 22 H 12/12/18 00:00 98.8 F 24 H 12/11/18 22:01 94 142/82 H 12/11/18 22:00 18 12/11/18 20:00 22 H 12/11/18 19:30 94 L 12/11/18 19:00 99.8 F H Weight Admit Weight 221.625 kg Weight 230.1 kg Most Recent Monitor Data Heart Rate from ECG 94 NIBP 119/85 NIBP BP-Mean 89 Respiration from ECG 15 SpO2 90 I&O: 12/10/18 12/11/18 12/12/18 06:59 06:59 06:59 Intake Total 3996 3036 2743 Output Total 3565 2550 1715 Balance 770 677 9103 Result Diagrams: 12/12/18 03:12 12/12/18 03:12 Phys Exam - Physical Examination sedated on mechanical ventilation HEENT: moist MMs, sclera anicteric Neck: no JVD, supple coarse rhonchi heard bilaterally Cardiovascular: RRR, no significant murmur Gastrointestinal: soft, positive bowel sounds Musculoskeletal: pulses present, edema present Deviation from normal: sedated Skin: no rash, cap refill <2 seconds Dx/Plan (1) Acute respiratory failure with hypoxia and hypercapnia Code(s): J96.01 - ACUTE RESPIRATORY FAILURE WITH HYPOXIA; J96.02 - ACUTE RESPIRATORY FAILURE WITH HYPERCAPNIA Status: Acute (2) Obesity hypoventilation syndrome Code(s): E66.2 - MORBID (SEVERE) OBESITY WITH ALVEOLAR HYPOVENTILATION Status : Suspected (3) HIV (human immunodeficiency virus infection) Code(s): B20 - HUMAN IMMUNODEFICIENCY VIRUS [HIV] DISEASE Status: Chronic (4) HTN (hypertension) Code(s): I10 - ESSENTIAL (PRIMARY) HYPERTENSION Status: Chronic (5) HLD (hyperlipidemia) Code(s): E78.5 - HYPERLIPIDEMIA, UNSPECIFIED Status: Chronic (6) Morbid obesity Code(s): E66.01 - MORBID (SEVERE) OBESITY DUE TO EXCESS CALORIES Status: Chronic - Plan Plan: This is a 32 yo male with PMH of HIV, CKD, HFrEF, pre-diabetes, latent syphilis , HLD, HTN 1) Acute Hypoxic Hypercapneic Respiratory Failure: likely 2/2 Pickwickian syndrome - Acute decompensation 12/07/18, Code Blue - Intubated 12/07/18, R fem CVC in place from 12/07 to 12/11, continue mechanical ventilation - Procal negative, likely not bacterial infection, covering with empiric Abx, zosyn and vancomycin (started 12/08) - Tang Duoneb - B/l LE doppler negative for DVT - Dr. Parrish Consulted for CCU management, appreciate recs 2) SIRS: likely 2/2 SOB, volume depletion, diarrhea, and HIV - Stool studies negative for campylobacter, Shiga toxin, E. coli O157. - Stool studies positive for fecal lactoferrin, this likely does not play a role in this pt's acute diarrhea - Continue empiric antibiotics, HIV meds - Levophed ggt started 12/09 due to low pressures, art line placed 12/09 for closer BP monitoring, Levo ggt d/c'd on 12/10 - additional stool labs pending 3) HFrEF - Elevated BNP, EF 45-50% on 06/08/18 - Will monitor for signs of fluid overload - strict I/Os, daily weights 4) DANIEL on CKD - Improving with maint IVFs 5) Thrombocytopenia: resolved - Continue to trend, currently 166 6) Pickwickian syndrome - Recommend OP sleep study upon discharge 7) HIV (CD4 250) - No current need for prophylaxis, controlled on HAART - Dr. Chapin consulted - HIV therapy has been modified so that patient can receive crushed meds through feeding tube 8) Latent Syphilis-treated - 2nd dose of Pen G during stay 9) HLD -Continue home meds 10) HTN -holding home meds 11) Perisistent Diarrhea: - Negative labs so far - Dr. Chapin feels like diarrhea could be 2/2 Kaletra - Kaletra discontinued on 12/11 - Hope that improvement in diarrhea will keep bicarb up which will help increase patient's chance of weaning off vent Addendum - Attending - Attending Attestation Date/Time: 12/12/18 6671 I personally evaluated the patient and discussed the management with Dr. Orlando I agree with the History, Examination, Assessment and Plan documented above with any addition or exceptions noted below Patient intubated and sedated. Afebrile VSS. A/P: 1) Acute on chronic hypercapneic respiratory failure - Continue vent support Wean as tolerated; may need tracheostomy to facilitate weaning. 2) Diarrhea- studies negative to date. Kaletra d/c'd per Dr. Chapin' recommendation as possible cause of the diarrhea. 3) HIV- continue current meds.
[2018-12-12] MEDS: Vancomycin HCl 750 MG in Sodium Chloride 0.9% 250 ML 250 ML IVPB SCH (06:54)
[2018-12-12] MEDS: Aspirin 81 mg Enteric Coated Tablet PO SCH (08:08)
[2018-12-12] MEDS: Sulfameth/Trimethoprim DS 800-160mg TAB PO SCH (08:08)
[2018-12-12] MEDS: Famotidine/PF 20 mg/2ml Vial SLOW IVP SCH (08:08)
[2018-12-12] MEDS: Enoxaparin Sodium 40 MG/0.4 ML SYRINGE SC SCH ×2 (08:09→20:00)
[2018-12-12] MEDS: Elviteg/Cob/Emtri/Tenof Alafen [Genvoya Tablet] 1 TAB PO SCH (09:43)
[2018-12-12] MEDS: Vancomycin HCl 1 GM in Premix Bag 1 BAG IVPB SCH ×2 (13:57→23:58)
[2018-12-12] MEDS ORDERED: Furosemide 40 MG/4 ML VIAL SLOW IVP SCH (16:30)
--- NOTE | 2018-12-12 17:12 | PRG ---
DATE OF SERVICE: 12/09/2018 SERVICE: Pulmonary Medicine. INTERVAL HISTORY: The patient is doing okay from respiratory standpoint. Whenever his pressure support or pressure control is turned down, he does poorly with this and becomes tachypneic and gets small tidal volumes. As such, we had to go up twice now on his volumes. He cannot provide any additional elements of the history. He is requiring some sedation in order to maintain comfort. PHYSICAL EXAMINATION: VITAL SIGNS: Currently, afebrile with a T-max of 100.3, pulse 101, blood pressure 118/63, respirations 24, and saturation 94% on 33% FiO2 and a PEEP of 5. GENERAL: The patient is intubated and sedated. HEENT: Normocephalic and atraumatic. Sclerae white. Conjunctivae pink. Oral mucosa is moist without lesions. LUNGS: He is moving some air. There is no apparent prolonged expiratory phase. HEART: Normal rate and regular. ABDOMEN: Soft. Nontender and nondistended. Bowel sounds are positive. MUSCULOSKELETAL: No cyanosis or clubbing. There is 1 to 2+ pitting throughout. : No Camargo. NEUROLOGIC: Grossly nonfocal. LABORATORY DATA: WBC 7.9, hemoglobin 15.3, platelets 166,000. Potassium 5.2, creatinine 1.82 and roughly stable. Magnesium 2.0, bicarb remains 29. Sputum is growing presumptive Kirstie albicans. Parasite screen was unremarkable. Blood cultures x2, urine culture unremarkable. ASSESSMENT: 1. Acute hypoxic and hypercapnic respiratory failure. 2. Morbid obesity. 3. Obstructive sleep apnea, likely horrendous. 4. Human immunodeficiency virus. 5. Diarrhea, possible side effect of Kaletra. 6. Community-acquired pneumonia, possible. DISCUSSION AND PLAN: We will continue our empiric antibiotics. I will give him a 7-day course of micafungin, though the fungus we isolated there is very unlikely to be causing our issue. At this point, multiple attempts at weaning him have failed. This is primarily secondary to increasing work of breathing associated with decreasing support of pressure. My suspicion is that if I can get him through the weekend, we will be looking at a tracheostomy early next week. I will give him one time dose of Lasix today. I will also give him a laboratory holiday tomorrow morning. Critical care time: 30 minutes. Job ID: [id number] [facility]
[2018-12-13] MEDS: Piperacillin/Tazobactam 4.5 GM in Sodium Chloride 0.9% 100 ML IVPB SCH ×3 (02:08→18:18)
[2018-12-13] MEDS: Propofol 1,000 MG/100 ML VIAL IV PRN ×5 (04:10→18:17)
[2018-12-13 05:35] LABS: Anion Gap 13 mmol/L (10-20); BUN (Urea Nitrogen) 43 mg/dL (8.9-20.6); Calc. Creatinine Clearance 180 mL/min (70-130); Calcium 9.7 mg/dL (7.8-10.44); Carbon Dioxide 33 mmol/L (22-29); Chloride 98 mmol/L (98-107); Estimated GFR-MDRD 49; Glucose 89 mg/dL (70-105); Potassium 5.1 mmol/L (3.5-5.1); Sodium 139 mmol/L (136-145)
[2018-12-13 05:58] LABS: Band 1 % (5-11); Lymphocytes 7 % (21-51); MDiff Complete? YES; Mean Corpuscular HGB CONC 30.7 g/dL (32.0-36.0); Mean Corpuscular Hemoglobin 27.2 pg (27.0-31.0); Mean Corpuscular Volume 88.7 fL (78.0-98.0); Mean Platelet Volume 10.2 fL (7.4-10.4); Monocytes 16 % (0-10); Neutrophil 75 % (42-75); Platelet Count 172 thou/uL (130-400); RBC Distribution Width 15.3 % (11.5-14.5); Reactive Lymphocytes 1 % (0-10)
--- NOTE | 2018-12-13 06:40 | PDOC.FM ---
- Subjective Subjective: Ceasar Trejo seen at bedside this morning. There were no acute events overnight. He remains sedated on mechanical ventilation. There were no acute events overnight. His urine output has been 4 L over the last 24 hours, he was given a dose of lasix yesterday. His respiratory culture showed presumptive johann so he was started on a 7 day course of Micafungin per pulm. - Objective MAR Reviewed: Yes Vital Signs & Weight: Vital Signs (12 hours) Temp Pulse Resp BP Pulse Ox 12/13/18 06:00 31 H 12/13/18 04:00 99.7 F H 14 12/13/18 02:14 101 H 112/69 12/13/18 02:00 23 H 12/13/18 00:00 98.6 F 16 12/12/18 22:03 94 115/74 12/12/18 22:00 13 12/12/18 20:00 99.9 F H 20 94 L Weight Admit Weight 221.625 kg Weight 230.1 kg Most Recent Monitor Data Heart Rate from ECG 101 NIBP 145/75 NIBP BP-Mean 96 Respiration from ECG 23 SpO2 93 I&O: 12/11/18 12/12/18 12/13/18 06:59 06:59 06:59 Intake Total 3036 3088 2560 Output Total 2550 1790 4135 Balance 486 1298 -1575 Result Diagrams: 12/13/18 03:40 12/13/18 03:40 Phys Exam - Physical Examination sedated on mechanical ventilation HEENT: moist MMs, sclera anicteric Neck: no JVD, supple Respiratory: clear to auscultation bilateral improved compared to yesterday Cardiovascular: RRR, no significant murmur Gastrointestinal: soft, no distention, positive bowel sounds Musculoskeletal: no edema, pulses present Skin: no rash, cap refill <2 seconds Dx/Plan (1) Acute respiratory failure with hypoxia and hypercapnia Code(s): J96.01 - ACUTE RESPIRATORY FAILURE WITH HYPOXIA; J96.02 - ACUTE RESPIRATORY FAILURE WITH HYPERCAPNIA Status: Acute (2) Obesity hypoventilation syndrome Code(s): E66.2 - MORBID (SEVERE) OBESITY WITH ALVEOLAR HYPOVENTILATION Status : Suspected (3) HIV (human immunodeficiency virus infection) Code(s): B20 - HUMAN IMMUNODEFICIENCY VIRUS [HIV] DISEASE Status: Chronic (4) HTN (hypertension) Code(s): I10 - ESSENTIAL (PRIMARY) HYPERTENSION Status: Chronic (5) HLD (hyperlipidemia) Code(s): E78.5 - HYPERLIPIDEMIA, UNSPECIFIED Status: Chronic (6) Morbid obesity Code(s): E66.01 - MORBID (SEVERE) OBESITY DUE TO EXCESS CALORIES Status: Chronic - Plan Plan: This is a 32 yo male with PMH of HIV, CKD, HFrEF, pre-diabetes, latent syphilis , HLD, HTN 1) Acute Hypoxic Hypercapneic Respiratory Failure: likely 2/2 Pickwickian syndrome - Acute decompensation 12/07/18, Code Blue - Intubated 12/07/18, R fem CVC in place from 12/07 to 12/11, continue mechanical ventilation - Procal negative, likely not bacterial infection, covering with empiric Abx, zosyn and vancomycin (started 12/08) - Tang Duoneb - B/l LE doppler negative for DVT - Dr. Parrish Consulted for CCU management, appreciate recs - started 7 day course of micafungin due to presumptive johann seen on resp cx - likely will need tracheostomy placed next week 2) SIRS: likely 2/2 SOB, volume depletion, diarrhea, and HIV - Stool studies negative for campylobacter, Shiga toxin, E. coli O157. - Stool studies positive for fecal lactoferrin, this likely does not play a role in this pt's acute diarrhea - Continue empiric antibiotics, HIV meds - Levophed ggt on from 12/09 to 12/10, BPs have remained stable since off levophed - Rapid parasite screen negative 3) HFrEF - Elevated BNP, EF 45-50% on 06/08/18 - Will monitor for signs of fluid overload - strict I/Os, daily weights 4) DANIEL on CKD - Improving with maint IVFs 5) Thrombocytopenia: resolved - Continue to trend, currently 172 6) Pickwickian syndrome - Recommend OP sleep study upon discharge 7) HIV (CD4 250) - No current need for prophylaxis, controlled on HAART - Dr. Chapin consulted - HIV therapy has been modified so that patient can receive crushed meds through feeding tube 8) Latent Syphilis-treated - 2nd dose of Pen G during stay 9) HLD -Continue home meds 10) HTN -holding home meds 11) Perisistent Diarrhea: - Negative labs so far - Dr. Chapin feels like diarrhea could be 2/2 Kaletra - Kaletra discontinued on 12/11 - Hope that improvement in diarrhea will keep bicarb up which will help increase patient's chance of weaning off vent Addendum - Attending - Attending Attestation Date/Time: 12/13/18 4359 I personally evaluated the patient and discussed the management with Dr. Orlando I agree with the History, Examination, Assessment and Plan documented above with any addition or exceptions noted below- Patient intubated and sedated. Afebrile VSS. A/P: 1) Acute on chronic hypercapneic respiratory failure- continue vent support. Wean as tolerated. May need tracheostomy. 2) Diarrhea - appears resolved; continue to monitor. 3) HIV- continue HAART.
[2018-12-13] MEDS: Aspirin 81 mg Enteric Coated Tablet PO SCH (08:32)
[2018-12-13] MEDS: Famotidine/PF 20 mg/2ml Vial SLOW IVP SCH (08:32)
[2018-12-13] MEDS: Enoxaparin Sodium 40 MG/0.4 ML SYRINGE SC SCH ×2 (08:33→19:12)
[2018-12-13] MEDS: Elviteg/Cob/Emtri/Tenof Alafen [Genvoya Tablet] 1 TAB PO SCH (09:00)
[2018-12-13] MEDS: Vancomycin HCl 1 GM in Premix Bag 1 BAG IVPB SCH ×2 (12:03→23:58)
--- NOTE | 2018-12-13 14:01 | PRG ---
DATE OF SERVICE: 12/13/2018 SERVICE: Pulmonary Medicine. INTERVAL HISTORY: The patient is doing fine from respiratory standpoint. On sedation holiday, he started becoming very tachypneic. He was unable tolerate a breathing trial of any type. He required very significant support on the ventilator. As such, he was placed back on mechanical ventilation. Yesterday, he tolerated the dose of Lasix just fine. There has been no interval change to his condition otherwise. PHYSICAL EXAMINATION: VITAL SIGNS: Afebrile. Pulse 111, blood pressure 123/69, respirations 11, saturation 90% on 31% FiO2 and a PEEP of 5. GENERAL: The patient is sedated and intubated. HEENT: Normocephalic and atraumatic. Sclerae are white. Conjunctivae are pink. Oral mucosa is moist without lesions. LUNGS: Decent air entry. There is no prolonged expiratory phase or wheezing. HEART: Normal rate regular. ABDOMEN: Soft, nontender, and nondistended. Bowel sounds are positive. MUSCULOSKELETAL: No cyanosis or clubbing. There is 1+ pitting throughout. GENITOURINARY: Camargo catheter in place. NEUROLOGIC: Grossly nonfocal. LABORATORY DATA: WBC 8.0, hemoglobin 15.0, and platelets 172,000 and roughly stable. Neutrophil count is low, band count is low. Creatinine 1.93 and gently up trending, BUN 43. Basic metabolic profile is otherwise unremarkable. Magnesium and phosphorous fall within the normal limits. Vancomycin trough is 23.4, continuing to trend downward. Respiratory culture is growing Kirstie albicans. All other culture results are negative to date. ASSESSMENT: 1. Acute on chronic hypoxic and hypercapnic respiratory failure. 2. Morbid obesity. 3. Obstructive sleep apnea, likely horrendous. 4. Human immunodeficiency viruses. 5. Diarrhea, resolved after suspending Kaletra. 6. Community-acquired pneumonia, possible. DISCUSSION AND PLAN: We will limit his antibiotics to a total duration of 7 days. At this point, I really do not think that we are going to be able to liberate him from mechanical ventilation in a short period of time. As such, I will put a Surgical consultation in for tracheostomy. I will see whether or not a feeding tube can be arranged, but with his body habitus, and it may prove difficult. Pulmonary Critical Care will continue to follow along. CRITICAL CARE TIME: 30 minutes. Job ID: [id number]
[2018-12-13] MEDS: Micafungin 100 MG in Sodium Chloride 0.9% 100 ML IVPB SCH (15:06)
--- NOTE | 2018-12-13 18:25 | CON ---
DATE OF CONSULTATION: CHIEF COMPLAINT: Inability to wean from ventilator. HISTORY OF PRESENT ILLNESS: The patient is a 32-year-old male, who has been in the hospital for the last 9 days. He had just been discharged from the hospital. He is morbidly obese, came in complaining of shortness of breath, required endotracheal intubation. He is unable to be weaned from the ventilator. I have been consulted for tracheostomy placement. PAST MEDICAL HISTORY: Significant for morbid obesity, obstructive sleep apnea, chronic hypercapnic respiratory failure, HIV positive, hypertension, hyperlipidemia. MEDICATIONS: Include: 1. Genvoya tablet. 2. Carvedilol. 3. Lisinopril. 4. Potassium. 5. Lasix. 6. Spironolactone. 7. Aspirin. PAST SURGERIES: Had tonsil and adenoidectomy. ALLERGIES: HE HAS NO KNOWN DRUG ALLERGIES. FAMILY HISTORY: Congestive heart failure, heart disease, and stroke. SOCIAL HISTORY: Quit smoking 3 years ago. No drug use. PHYSICAL EXAMINATION: VITAL SIGNS: Temperature is 99.4, pulse 113, blood pressure 117/75. He is sedated on the ventilator. Endotracheal tube in place as well as he has a feeding tube in place. GENERAL: He is morbidly obese. LUNGS: Have a lot of rhonchi. HEART: Regular rate and rhythm, but tachy. ABDOMEN: Obese, soft, nondistended, and nontender. EXTREMITIES: There is some mild edema. LABORATORY DATA: His white count is 8, H and H 15 and 48, platelet count 172. Electrolytes show a CO2 of 33, BUN of 43, creatinine 1.93. ASSESSMENT: Morbid obesity hypoventilation syndrome, ventilatory dependent. PLAN: Tracheostomy placement. CONSENT: I have discussed the planned procedure as well as risk of bleeding, infection, loss of airway. Family understands and gives informed consent. Job ID: [id number]
[2018-12-13 23:26] LABS: Vancomycin, Trough 17.7 ug/mL
[2018-12-14] MEDS: Propofol 1,000 MG/100 ML VIAL IV PRN ×7 (00:01→22:00)
[2018-12-14] MEDS: Piperacillin/Tazobactam 4.5 GM in Sodium Chloride 0.9% 100 ML IVPB SCH ×2 (02:14→09:15)
[2018-12-14 05:50] LABS: Anion Gap 14 mmol/L (10-20); BUN (Urea Nitrogen) 42 mg/dL (8.9-20.6); Calc. Creatinine Clearance 221 mL/min (70-130); Carbon Dioxide 30 mmol/L (22-29); Chloride 100 mmol/L (98-107); Estimated GFR-MDRD 63; Glucose 95 mg/dL (70-105); Magnesium 2.1 mg/dL (1.6-2.6); Potassium 5.4 mmol/L (3.5-5.1); Sodium 139 mmol/L (136-145)
[2018-12-14 06:08] LABS: Phosphorus 4.2 mg/dL (2.3-4.7)
[2018-12-14 06:12] LABS: Band 6 % (5-11); Hemoglobin 15.6 g/dL (14.0-18.0); Lymphocytes 20 % (21-51); MDiff Complete? YES; Mean Corpuscular HGB CONC 28.3 g/dL (32.0-36.0); Mean Corpuscular Hemoglobin 25.7 pg (27.0-31.0); Mean Corpuscular Volume 90.9 fL (78.0-98.0); Mean Platelet Volume 9.8 fL (7.4-10.4); Metamyelocyte 1 % (0-0); Monocytes 7 % (0-10); Neutrophil 66 % (42-75); Platelet Count 206 thou/uL (130-400); Platelet Morphology Comment Appears Adequate; RBC Distribution Width 15.4 % (11.5-14.5); Red Blood Cell (RBC) Count 6.09 mill/uL (4.70-6.10); White Blood Cell (WBC) Count 8.7 thou/uL (4.8-10.8)
--- NOTE | 2018-12-14 06:21 | PDOC.FM ---
- Subjective Subjective: Ceasar Trejo seen at bedside this morning. There were no acute events overnight. He remains sedated and on mechanical ventilation. It is felt that it will take very long for him to wean off the vent so will be proceeding with tracheostomy placement. This is scheduled for today. I/Os over the last 24 hours in -1L. He has had increased secretions over night requiring repeated suctioning. He had the first fever of his admission this morning around 0400. Temp of 100.6. Current Vent Setting: PCV, f 11, FiO2 39%, PEEP 7, Psupp 24 - Objective MAR Reviewed: Yes Vital Signs & Weight: Vital Signs (12 hours) Temp Pulse Resp BP Pulse Ox 12/14/18 06:05 103 H 123/61 12/14/18 06:04 104 H 18 91 L 12/14/18 06:00 17 12/14/18 04:00 100.6 F H 21 H 12/14/18 03:01 130 H 12/14/18 03:00 134 H 21 H 89 L 12/14/18 02:00 32 H 12/14/18 00:00 99.1 F 28 H 12/13/18 22:16 103 H 24 H 12/13/18 22:00 25 H 12/13/18 20:00 99.4 F 20 94 L 12/13/18 18:53 105 H 12/13/18 18:52 105 H 36 H 93 L Weight Admit Weight 221.625 kg Weight 227.4 kg Most Recent Monitor Data Heart Rate from ECG 103 NIBP 147/76 NIBP BP-Mean 91 Respiration from ECG 22 SpO2 91 I&O: 12/12/18 12/13/18 12/14/18 06:59 06:59 06:59 Intake Total 3088 2560 2741 Output Total 1790 8875 3936 Balance 9699 -1575 -2864 Result Diagrams: 12/14/18 05:22 12/14/18 05:22 Phys Exam - Physical Examination sedated, intubated, on mechanical ventilation HEENT: moist MMs, sclera anicteric Neck: supple, full ROM Respiratory: no wheezing, no rales, no rhonchi, clear to auscultation bilateral no change from previous Cardiovascular: RRR, no significant murmur, no rub Gastrointestinal: soft, positive bowel sounds Musculoskeletal: pulses present, edema present Deviation from normal: sedated Skin: no rash, normal turgor, cap refill <2 seconds Dx/Plan (1) Acute respiratory failure with hypoxia and hypercapnia Code(s): J96.01 - ACUTE RESPIRATORY FAILURE WITH HYPOXIA; J96.02 - ACUTE RESPIRATORY FAILURE WITH HYPERCAPNIA Status: Acute (2) Obesity hypoventilation syndrome Code(s): E66.2 - MORBID (SEVERE) OBESITY WITH ALVEOLAR HYPOVENTILATION Status : Suspected (3) HIV (human immunodeficiency virus infection) Code(s): B20 - HUMAN IMMUNODEFICIENCY VIRUS [HIV] DISEASE Status: Chronic (4) HTN (hypertension) Code(s): I10 - ESSENTIAL (PRIMARY) HYPERTENSION Status: Chronic (5) HLD (hyperlipidemia) Code(s): E78.5 - HYPERLIPIDEMIA, UNSPECIFIED Status: Chronic (6) Morbid obesity Code(s): E66.01 - MORBID (SEVERE) OBESITY DUE TO EXCESS CALORIES Status: Chronic - Plan Plan: 1) Acute Hypoxic Hypercapneic Respiratory Failure: likely 2/2 Pickwickian syndrome - Acute decompensation 12/07/18, Code Blue - Intubated 12/07/18, R fem CVC in place from 12/07 to 12/11, continue mechanical ventilation - Procal negative, likely not bacterial infection, covering with empiric Abx, zosyn and vancomycin (started 12/08) - Tang Duoneb - B/l LE doppler negative for DVT - Dr. Parrish Consulted for CCU management, appreciate recs - plan to get tracheostomy placed today with Dr. Reyes 2) SIRS: likely 2/2 SOB, volume depletion, diarrhea, and HIV - Stool studies negative for campylobacter, Shiga toxin, E. coli O157. - Stool studies positive for fecal lactoferrin, this likely does not play a role in this pt's acute diarrhea - Continue empiric antibiotics, HIV meds - Rapid parasite screen negative - Will discontinue Vanc/Zosyn on 12/16 for complete 7 day course - Will complete 7 day course of Micafungin - Fever overnight, will consider repeating blood and urine cx and CXR 3) HFrEF - Elevated BNP, EF 45-50% on 06/08/18 - Will monitor for signs of fluid overload - strict I/Os, daily weights 4) DANIEL on CKD - Improving with maint IVFs 5) Thrombocytopenia: resolved - Continue to trend, currently 172 6) Pickwickian syndrome - Recommend OP sleep study upon discharge 7) HIV (CD4 250) - No current need for prophylaxis, controlled on HAART - Dr. Chapin consulted - HIV therapy has been modified so that patient can receive crushed meds through feeding tube 8) Latent Syphilis-treated - 2nd dose of Pen G during stay 9) HLD -Continue home meds 10) HTN -holding home meds 11) Perisistent Diarrhea: improving - Negative labs so far - Dr. Chapin feels like diarrhea could be 2/2 Kaletra - Kaletra discontinued on 12/11, diarrhea has improved Addendum - Attending - Attending Attestation Date/Time: 12/14/18 0911 I personally evaluated the patient and discussed the management with Dr. Orlando I agree with the History, Examination, Assessment and Plan documented above with any addition or exceptions noted below - Intubated/sedated. Having increased O2 requirements this morning. Tm 100.6 P114 BP 126/68 A/P: 1) Acute on chronic hypercapneic respiratory failure- increased tachypena and O2 requirement this morning- improved some with suctioning. Start scopalamine patch for secretions. Plan for trach today. 2) HIV - continue HAART. 3) Diarrhea - stable. 4) Obesity-hypoventilation syndrome- plan for trach today.
[2018-12-14] MEDS: Aspirin 81 mg Enteric Coated Tablet PO SCH (09:03)
[2018-12-14] MEDS: Famotidine/PF 20 mg/2ml Vial SLOW IVP SCH (09:03)
[2018-12-14] MEDS: Sulfameth/Trimethoprim DS 800-160mg TAB PO SCH (09:03)
[2018-12-14] MEDS: Enoxaparin Sodium 40 MG/0.4 ML SYRINGE SC SCH ×2 (09:04→22:01)
[2018-12-14] MEDS: Elviteg/Cob/Emtri/Tenof Alafen [Genvoya Tablet] 1 TAB PO SCH (09:06)
[2018-12-14] MEDS ORDERED: Scopolamine 1.5 mg/72 hour Patch TD SCH (09:15)
[2018-12-14] MEDS: Scopolamine 1.5 mg/72 hour Patch TD SCH (10:44)
--- NOTE | 2018-12-14 10:55 | RAD ---
CHEST ONE VIEW: History: Intubation, respiratory insufficiency. Comparison: 12-10-18 FINDINGS: Previously noted endotracheal tube has been removed. An NG tube is noted in place although the distal tip is not seen on this study. There is cardiomegaly with vascular congestion and bilateral intersti tial and alveolar parenchymal changes most concerning for extensive pulmonary edema, stable. Probable small pleural effusions. IMPRESSION: Stable cardiomegaly, congestion, edema and probable small pleural effusions. Removal of the endotrach eal tube. Continued short term follow up. POS: [facility]
[2018-12-14] MEDS: Vancomycin HCl 1 GM in Premix Bag 1 BAG IVPB SCH (11:29)
[2018-12-14] MEDS: Lactated Ringer's 1,000 ML IV SCH (11:32)
--- NOTE | 2018-12-14 11:56 | PRG ---
DATE OF SERVICE: 12/14/2018 SERVICE: Pulmonary Medicine. INTERVAL HISTORY: Overnight, the patient became increasingly hypoxemic. He was once again lied flat. When I came in this morning, his respirations were in the low 40s, and his tidal volumes were little over 200. We immediately sat him up right. By doing this, his volumes improved dramatically, and his respiratory rates came down to the low 20s. He cannot provide any additional elements of the history because we were also going up on a sedation last night. Otherwise, there has been no interval change to his condition. PHYSICAL EXAMINATION: VITAL SIGNS: Afebrile currently with a T-max of 100.6. Pulse 140, blood pressure 135/75, respirations 27, saturation 90% on 100% FiO2 and a PEEP of 8. HEENT: Normocephalic and atraumatic. Sclerae white. Conjunctivae pink. Oral mucosa is moist without lesions. LUNGS: Decent air entry. Rhonchi are present. There are also crackles. No prolonged expiratory phase or wheezing is appreciated. HEART: Normal rate, regular. ABDOMEN: Soft, nontender, nondistended. Bowel sounds are positive. MUSCULOSKELETAL: No cyanosis or clubbing. There is no pitting in the bilateral lower extremities. NEUROLOGIC: Grossly nonfocal. LABORATORY DATA: WBC 8.7, hemoglobin 5.6, and platelets 206,000 and stable. Neutrophil count has returned to normal. Creatinine 1.56 and downtrending, BUN 42, bicarb 30. Potassium is 5.4 and roughly stable. Phosphorus and magnesium fall within the normal limits. Vancomycin trough is 17.7. IMAGING STUDIES: Chest x-ray demonstrates endotracheal tube is still in position. There is a small right-sided pleural effusion. Otherwise, low lung volumes and soft tissue accentuate interstitial markings. Cardiomegaly is noted. ASSESSMENT: 1. Acute on chronic hypoxic and hypercapnic respiratory failure. 2. Obesity hypoventilation syndrome. 3. Obstructive sleep apnea, likely horrendous. 4. Human immunodeficiency virus. 5. Diarrhea, resolved. 6. Community-acquired pneumonia, possible. DISCUSSION AND PLAN: The patient is doing poorly from respiratory standpoint. We will need to improve his oxygen requirements before he can go down for tracheostomy. We may have to delay this procedure until it is safe to take him down to the operating room. I will increase his PEEP ever so slightly. We increased his pressure support. His tidal volumes are now much improved into the 400 and 500 range. His respirations have settled down dramatically. We will back off on his sedation, and hopefully over the next 3 to 4 hours, his oxygen requirements will improve dramatically. Critical Care will continue to follow along. CRITICAL CARE TIME: 30 minutes. Job ID: [id number]
[2018-12-14] MEDS ORDERED: Furosemide 40 MG/4 ML VIAL SLOW IVP SCH (12:30)
[2018-12-14] MEDS ORDERED: Metoprolol Tartrate 25 MG TAB PO SCH (12:45)
--- NOTE | 2018-12-14 13:30 | PRG ---
DATE OF SERVICE: 12/14/2018 SUBJECTIVE: The patient had his tracheostomy canceled because of respiratory decompensation, requiring higher levels of O2 and inspired air. He had a lot of thick green secretions from suction. OBJECTIVE: VITAL SIGNS: His T-max 100.6, blood pressure is 116/60, O2 saturation 92 on 100 FiO2. GENERAL: Sedated. HEENT: Pupils are miotic. Orotracheal intubation. LUNGS: Symmetric, coarse breath sounds. HEART: Diminished heart sounds. ABDOMEN: Massive abdominal panniculus. GENITOURINARY: A Camargo catheter in place with a negative balance over the past 24 hours. Over the past 48 hours, his output has been increasing to 4000, 3000 probably from diuresis. LABORATORY DATA: White cell count 8.7, hemoglobin 15, and platelets 206. Sodium 139 and creatinine 1.56. Vancomycin trough 17.7. Microbiology with Kirstie albicans, which is probably colonization of the respiratory culture rather than true pathogenic role. All the other cultures are negative. MEDICATIONS: The patient is currently on Creon, etravirine, Epivir, furosemide, micafungin, Levophed. The Genvoya cannot be administered because it cannot be crushed. ASSESSMENT: 1. Longstanding human immunodeficiency virus infection. 2. Morbid obesity with hypoventilation syndrome, which led to respiratory failure, resulting in this admission. PLAN: Now, the patient is scheduled for tracheostomy, but had to be canceled because of decompensation of his respiratory status. He is on DVT prophylaxis full with Lovenox, may need to have antimicrobial therapy added for potential bacterial lower respiratory tract infection. In view of the decompensation, I would add broad-spectrum coverage. His last chest x-ray showed congestion and edema. Again, the micafungin probably not needed. The Kirstie is most likely a colonizer rather than having true pathogenic role. Job ID: [id number]
[2018-12-14] MEDS: Meropenem 2 GM, Admixture Fee 1 EACH in Sodium Chloride 0.9% 100 ML IVPB SCH ×2 (14:35→22:02)
[2018-12-14] MEDS: Micafungin 100 MG in Sodium Chloride 0.9% 100 ML IVPB SCH (14:56)
--- NOTE | 2018-12-14 15:02 | EKG ---
Test Reason : Blood Pressure : / mmHG Vent. Rate : 130 BPM Atrial Rate : 061 BPM P-R Int : 000 ms QRS Dur : 108 ms QT Int : 404 ms P-R-T Axes : 000 114 -21 degrees QTc Int : 594 ms Atrial tachycardia Right axis deviation Incomplete right bundle branch block T wave abnormality, consider anterior ischemia Abnormal ECG Confirmed by SOM ALBERTO ([id number]) on 12/14/2018 3:01:29 PM Referred By: HELENA Confirmed By:SOM ALBERTO
[2018-12-14] MEDS: Metoprolol Tartrate 25 MG TAB PO SCH (22:02)
[2018-12-15 04:57] LABS: Anion Gap 14 mmol/L (10-20); BUN (Urea Nitrogen) 43 mg/dL (8.9-20.6); Calc. Creatinine Clearance 231 mL/min (70-130); Calcium 10.1 mg/dL (7.8-10.44); Carbon Dioxide 32 mmol/L (22-29); Chloride 99 mmol/L (98-107); Estimated GFR-MDRD 67; Glucose 88 mg/dL (70-105); Potassium 5.5 mmol/L (3.5-5.1); Sodium 139 mmol/L (136-145)
[2018-12-15] MEDS: Propofol 1,000 MG/100 ML VIAL IV PRN ×4 (05:00→22:04)
[2018-12-15] MEDS: Furosemide 40 MG/4 ML VIAL SLOW IVP SCH (05:00)
--- NOTE | 2018-12-15 05:34 | PDOC.FM ---
- Subjective Subjective: Ceasar Trejo seen and examined at bedside this AM. He reportedly continues to have periods of hypoxia especially when positioned on his back. He also has had episodes of tachycardia into the 130s. Otherwise no adverse events overnight. - Objective MAR Reviewed: Yes Vital Signs & Weight: Vital Signs (12 hours) Temp Pulse Resp Pulse Ox 12/15/18 04:00 99.6 F 24 H 12/15/18 02:33 106 H 12/15/18 02:32 105 H 27 H 96 12/15/18 02:00 32 H 12/15/18 00:00 98.8 F 33 H 12/14/18 22:43 100 12/14/18 22:00 25 H 12/14/18 20:00 99.7 F H 17 93 L 12/14/18 18:44 96 25 H 90 L 12/14/18 18:00 20 Weight Admit Weight 221.625 kg Weight 218.7 kg Most Recent Monitor Data Heart Rate from ECG 110 NIBP 152/82 NIBP BP-Mean 98 Respiration from ECG 30 SpO2 93 I&O: 12/13/18 12/14/18 12/15/18 06:59 06:59 06:59 Intake Total 2560 2741 1291 Output Total 4135 3935 5535 Balance -1575 -1194 -4244 Result Diagrams: 12/14/18 05:22 12/15/18 04:15 Phys Exam - Physical Examination Constitutional: NAD Cardiovascular: RRR Gastrointestinal: soft, no distention Musculoskeletal: no edema Skin: no rash Dx/Plan (1) Acute respiratory failure with hypoxia and hypercapnia Code(s): J96.01 - ACUTE RESPIRATORY FAILURE WITH HYPOXIA; J96.02 - ACUTE RESPIRATORY FAILURE WITH HYPERCAPNIA Status: Acute (2) HFrEF (heart failure with reduced ejection fraction) Code(s): I50.20 - UNSPECIFIED SYSTOLIC (CONGESTIVE) HEART FAILURE Status: Chronic (3) HLD (hyperlipidemia) Code(s): E78.5 - HYPERLIPIDEMIA, UNSPECIFIED Status: Chronic (4) Latent syphilis in male Code(s): A53.0 - LATENT SYPHILIS, UNSPECIFIED EARLY OR LATE Status: Chronic (5) Polycythemia secondary to hypoxia Code(s): D75.1 - SECONDARY POLYCYTHEMIA Status: Chronic (6) Pre-diabetes Code(s): R73.03 - PREDIABETES Status: Chronic (7) Acute and chronic respiratory failure with hypoxia Code(s): J96.21 - ACUTE AND CHRONIC RESPIRATORY FAILURE WITH HYPOXIA Status: Acute (8) HIV (human immunodeficiency virus infection) Code(s): B20 - HUMAN IMMUNODEFICIENCY VIRUS [HIV] DISEASE Status: Chronic (9) HTN (hypertension) Code(s): I10 - ESSENTIAL (PRIMARY) HYPERTENSION Status: Chronic (10) Morbid obesity Code(s): E66.01 - MORBID (SEVERE) OBESITY DUE TO EXCESS CALORIES Status: Chronic (11) Obesity hypoventilation syndrome Code(s): E66.2 - MORBID (SEVERE) OBESITY WITH ALVEOLAR HYPOVENTILATION Status : Suspected - Plan Plan: 1) Acute Hypoxic Hypercapneic Respiratory Failure: likely 2/2 Obesity hypoventilation syndrome - Dr. Parrish Consulted for CCU management, appreciate recs - pt deemed to unstable for trach placement yesterday. - possible component of volume overload. Being diuresed gently. - Meropenem added by ID to cover for possible lower respiratory tract infection. - Vent management per Pulm 2) HFrEF - Elevated BNP, EF 45-50% on 06/08/18 - Will continue to monitor for signs of fluid overload - strict I/Os, daily weights 3) DANIEL on CKD - Improving with maint IVFs 4) Thrombocytopenia: resolved - Continue to trend, currently 172 5) Pickwickian syndrome - Recommend OP sleep study upon discharge 6) HIV (CD4 250) - No current need for prophylaxis, controlled on HAART - Dr. Chapin consulted - HIV therapy has been modified so that patient can receive crushed meds through feeding tube 7) Latent Syphilis-treated - 2nd dose of Pen G during stay 8) HLD -Continue home meds 9) HTN -holding home meds 10) Perisistent Diarrhea: improving - Negative labs so far - Dr. Chapin feels like diarrhea could be 2/2 Kaletra - Kaletra discontinued on 12/11, diarrhea has improved
[2018-12-15] MEDS: Meropenem 2 GM, Admixture Fee 1 EACH in Sodium Chloride 0.9% 100 ML IVPB SCH ×3 (06:04→22:00)
[2018-12-15 08:30] LABS: Actual Bicarbonate (HCO3a) 35.9 mEq/L (22-28); Base Excess (BEa) 8.2 mEq/L (-2.0 to +3.0); Calcium, Ionized 1.28 mmol/L (1.12-1.30); Carboxyhemoglobin (COHb) 1.7 gm% (0.0-3.0); Hemoglobin (Hb) 16.4 g/dL (14.0-18.0); Potassium - ABG Lab 5.41 mmol/L (3.70-5.30); pH, Arterial 7.39 (7.35-7.45)
[2018-12-15 08:31] LABS: CO2 Tension 61.1 mmHg (35.0-45.0)
[2018-12-15 08:33] LABS: O2 Tension (PaO2) 56.5 mmHg (80.0-100.0); Puncture Site ALINE
--- NOTE | 2018-12-15 09:01 | PRG ---
DATE OF SERVICE: 12/15/2018 SUBJECTIVE: This morning, the entire lung, right-sided opacified suggesting of a large mucus plug. X-ray yesterday shows increased markings, marked change from yesterday. OBJECTIVE: GENERAL: He is awake and responsive. VITAL SIGNS: His temperature is 99.7, blood pressure 175/105, respirations 18, and pulse 80. CHEST: Decreased breath sounds. No wheezing. CARDIAC: Normal S1 and S2. No gallops. ABDOMEN: Soft. It is massive. LABORATORY DATA: Creatinine 1.49. IMPRESSION: Multiorgan failure, human immunodeficiency virus, respiratory failure, morbid obesity, sleep apnea, and right lung total atelectasis. PLAN: Diagnostic 3-way bronchoscopy performed. Hopefully, can be trached once he is much improved. Otherwise, he is on medication for his HIV. He is on empiric broad-spectrum antibiotics. PT and supportive care. We will follow. One-half hour of critical care time, exclusive of the bronchoscopy. Job ID: [id number]
[2018-12-15 09:10] LABS: ALV-art Gradient 473.175 (0-20)
[2018-12-15] MEDS ORDERED: Midazolam HCl 2 mg/2 ml Vial IVP SCH (09:30)
[2018-12-15] MEDS: Enoxaparin Sodium 40 MG/0.4 ML SYRINGE SC SCH ×2 (09:48→19:50)
[2018-12-15] MEDS: Famotidine/PF 20 mg/2ml Vial SLOW IVP SCH (09:48)
[2018-12-15] MEDS: Aspirin 81 mg Enteric Coated Tablet PO SCH (09:49)
[2018-12-15] MEDS: Sulfameth/Trimethoprim DS 800-160mg TAB PO SCH (09:49)
[2018-12-15] MEDS: Metoprolol Tartrate 25 MG TAB PO SCH ×2 (09:51→19:50)
[2018-12-15] MEDS: Elviteg/Cob/Emtri/Tenof Alafen [Genvoya Tablet] 1 TAB PO SCH (09:52)
--- NOTE | 2018-12-15 10:05 | RAD ---
SINGLE VIEW OF THE CHEST: COMPARISON: 12/14/2018. HISTORY: Intubated patient with respiratory failure. FINDINGS: A single view of the chest shows near-complete opacification of the right thorax. It is difficult to assess the size of the cardiomediastinal silhouette given the opacification. An NG tube appears to be in the stomach. The endotracheal tube is not definitely visualized. IMPRESSION: Nonspecific complete opacification of the right thorax may represent a pleural effusion or atelectasi s. POS: [facility]
[2018-12-15 11:47] LABS: Vancomycin, Trough 12.7 ug/mL
[2018-12-15] MEDS: Micafungin 100 MG in Sodium Chloride 0.9% 100 ML IVPB SCH (13:57)
--- NOTE | 2018-12-15 21:45 | EKG ---
Test Reason : EMERGENCY EXAM Blood Pressure : / mmHG Vent. Rate : 102 BPM Atrial Rate : 102 BPM P-R Int : 158 ms QRS Dur : 104 ms QT Int : 372 ms P-R-T Axes : 063 113 -23 degrees QTc Int : 484 ms Sinus tachycardia with Premature supraventricular complexes Right axis deviation Right ventricular hypertrophy Nonspecific ST and T wave abnormality Abnormal ECG Confirmed by JLUIS BEASLEY ([id number]), editor map EMILIE GORE ([id number]) on 12/15/2018 9:45:10 PM Referred By: Confirmed By:JLUIS BEASLEY
[2018-12-16] MEDS: Propofol 1,000 MG/100 ML VIAL IV PRN ×5 (03:20→20:38)
[2018-12-16] MEDS: Acetaminophen 325 MG TAB PO PRN (03:24)
[2018-12-16] MEDS: Lactated Ringer's 1,000 ML IV SCH (04:49)
[2018-12-16 05:06] LABS: Anion Gap 14 mmol/L (10-20); BUN (Urea Nitrogen) 47 mg/dL (8.9-20.6); Calc. Creatinine Clearance 201 mL/min (70-130); Calcium 10.2 mg/dL (7.8-10.44); Carbon Dioxide 32 mmol/L (22-29); Chloride 101 mmol/L (98-107); Estimated GFR-MDRD 59; Glucose 100 mg/dL (70-105); Potassium 5.3 mmol/L (3.5-5.1); Sodium 142 mmol/L (136-145)
[2018-12-16] MEDS: Furosemide 40 MG/4 ML VIAL SLOW IVP SCH (05:35)
[2018-12-16] MEDS: Meropenem 2 GM, Admixture Fee 1 EACH in Sodium Chloride 0.9% 100 ML IVPB SCH ×3 (05:35→21:45)
--- NOTE | 2018-12-16 06:09 | PDOC.FM ---
- Subjective Subjective: No adverse events overnight. Pt still remains hypoxic. - Objective MAR Reviewed: Yes Vital Signs & Weight: Vital Signs (12 hours) Temp Pulse Resp Pulse Ox 12/16/18 04:00 38 H 12/16/18 03:33 142 H 12/16/18 03:32 143 H 43 H 90 L 12/16/18 03:00 100.8 F H 38 H 12/16/18 00:00 100.2 F H 28 H 12/15/18 22:25 113 H 12/15/18 22:24 112 H 39 H 88 L 12/15/18 22:00 38 H 12/15/18 20:00 34 H 90 L 12/15/18 19:17 107 H 12/15/18 19:16 106 H 34 H 96 12/15/18 18:00 28 H Weight Admit Weight 221.625 kg Weight 217.9 kg Most Recent Monitor Data Heart Rate from ECG 119 NIBP 118/65 NIBP BP-Mean 93 Respiration from ECG 25 SpO2 92 I&O: 12/14/18 12/15/18 12/16/18 06:59 06:59 07:59 Intake Total 2741 1291 1479 Output Total 3935 5885 3465 [facility] -1194 -4594 -1986 Result Diagrams: 12/14/18 05:22 12/16/18 04:44 Phys Exam - Physical Examination Constitutional: NAD Respiratory: clear to auscultation bilateral tachycardic Gastrointestinal: soft, no distention Dx/Plan (1) Acute respiratory failure with hypoxia and hypercapnia Code(s): J96.01 - ACUTE RESPIRATORY FAILURE WITH HYPOXIA; J96.02 - ACUTE RESPIRATORY FAILURE WITH HYPERCAPNIA Status: Acute (2) HFrEF (heart failure with reduced ejection fraction) Code(s): I50.20 - UNSPECIFIED SYSTOLIC (CONGESTIVE) HEART FAILURE Status: Chronic (3) HLD (hyperlipidemia) Code(s): E78.5 - HYPERLIPIDEMIA, UNSPECIFIED Status: Chronic (4) Latent syphilis in male Code(s): A53.0 - LATENT SYPHILIS, UNSPECIFIED EARLY OR LATE Status: Chronic (5) Polycythemia secondary to hypoxia Code(s): D75.1 - SECONDARY POLYCYTHEMIA Status: Chronic (6) Pre-diabetes Code(s): R73.03 - PREDIABETES Status: Chronic (7) Acute and chronic respiratory failure with hypoxia Code(s): J96.21 - ACUTE AND CHRONIC RESPIRATORY FAILURE WITH HYPOXIA Status: Acute (8) HIV (human immunodeficiency virus infection) Code(s): B20 - HUMAN IMMUNODEFICIENCY VIRUS [HIV] DISEASE Status: Chronic (9) HTN (hypertension) Code(s): I10 - ESSENTIAL (PRIMARY) HYPERTENSION Status: Chronic (10) Morbid obesity Code(s): E66.01 - MORBID (SEVERE) OBESITY DUE TO EXCESS CALORIES Status: Chronic (11) Obesity hypoventilation syndrome Code(s): E66.2 - MORBID (SEVERE) OBESITY WITH ALVEOLAR HYPOVENTILATION Status : Suspected - Plan Plan: 1) Acute Hypoxic Hypercapneic Respiratory Failure: likely 2/2 Obesity hypoventilation syndrome - Pulm consulted for CCU management, appreciate recs - pt continues to remain hypoxic, although slightly improved from yesterday. - possible component of volume overload. Being diuresed gently. Steroids added today. - Meropenem added by ID to cover for possible lower respiratory tract infection. - Vent management per Pulm - Possible trach early next week. 2) HFrEF - Elevated BNP, EF 45-50% on 06/08/18 - Will continue to monitor for signs of fluid overload - strict I/Os, daily weights 3) DANIEL on CKD - Improving with maint IVFs 4) Thrombocytopenia: resolved- Continue to trend, currently 172 6) HIV (CD4 250) - Dr. Chapin consulted - HIV therapy has been modified so that patient can receive crushed meds through feeding tube 7) Latent Syphilis-treated - 2nd dose of Pen G during stay 8) HLD -Continue home meds 10) Perisistent Diarrhea: improving - Negative labs so far - Dr. Chapin feels like diarrhea could be 2/2 Kaletra - Kaletra discontinued on 12/11, diarrhea has improved
[2018-12-16 08:53] LABS: Actual Bicarbonate (HCO3a) 36.9 mEq/L (22-28); Base Excess (BEa) 8.7 mEq/L (-2.0 to +3.0); Calcium, Ionized 1.31 mmol/L (1.12-1.30); Carboxyhemoglobin (COHb) 1.4 gm% (0.0-3.0); Hemoglobin (Hb) 16.4 g/dL (14.0-18.0); Potassium - ABG Lab 4.79 mmol/L (3.70-5.30); pH, Arterial 7.37 (7.35-7.45)
[2018-12-16 08:55] LABS: CO2 Tension 64.9 mmHg (35.0-45.0); O2 Tension (PaO2) 57.5 mmHg (80.0-100.0)
[2018-12-16 08:56] LABS: ALV-art Gradient 431.775 (0-20); Puncture Site ALINE
--- NOTE | 2018-12-16 09:25 | RAD ---
SINGLE VIEW OF THE CHEST: COMPARISON: 12/15/2018. His t Intubated patient with respiratory failure. FINDINGS: A single view of the chest shows an enlarged cardiomediastinal silhouette. There is aeration of the right thorax. The endotracheal tube is very high with its tip approximately 5 cm above the clavicle. An NG tube is partially visualized. IMPRESSION: 1. Aeration of the right thorax. 2. High endotracheal tube. POS: [facility]
[2018-12-16] MEDS: Metoprolol Tartrate 25 MG TAB PO SCH ×2 (09:59→21:26)
[2018-12-16] MEDS: Aspirin 81 mg Enteric Coated Tablet PO SCH (09:59)
[2018-12-16] MEDS: Enoxaparin Sodium 40 MG/0.4 ML SYRINGE SC SCH ×2 (10:00→21:26)
[2018-12-16] MEDS: Famotidine/PF 20 mg/2ml Vial SLOW IVP SCH (10:00)
[2018-12-16] MEDS: methylPREDNISolone Sod Succ 40 MG VIAL IVP SCH ×3 (10:27→21:45)
--- NOTE | 2018-12-16 10:28 | PRG ---
DATE OF SERVICE: 12/16/2018 SUBJECTIVE: Morbidly obese 32-year-old gentleman whose lung was completely opacified yesterday. Bronchoscopy performed. X-ray today shows resolution of the opacity. Unfortunately, he still remains hypoxic. OBJECTIVE: VITAL SIGNS: Sats are 93% on 80%, 10 of PEEP, blood pressure 129/71, respirations 20, and temperature 100.8. CHEST: Bilateral rhonchi. CARDIAC: Sinus tach. ABDOMEN: Massive. PO2 is 56 yesterday. Lytes are normal. Creatinine is 1.65. IMPRESSION: Morbid obesity, respiratory failure, sepsis syndrome, human immunodeficiency virus, renal failure. PLAN: Awaiting bronch cultures. Continue meropenem and sulfa. I have added some low-dose steroids on him. Hopefully to be trached early next week. One-half hour of critical time. Job ID: [id number]
[2018-12-16] MEDS: Elviteg/Cob/Emtri/Tenof Alafen [Genvoya Tablet] 1 TAB PO SCH (13:40)
[2018-12-16] MEDS: Micafungin 100 MG in Sodium Chloride 0.9% 100 ML IVPB SCH (14:57)
[2018-12-17] MEDS: Propofol 1,000 MG/100 ML VIAL IV PRN ×7 (00:16→21:40)
[2018-12-17] MEDS: methylPREDNISolone Sod Succ 40 MG VIAL IVP SCH ×3 (03:57→18:08)
[2018-12-17 04:45] LABS: Chloride 102 mmol/L (98-107); Potassium 4.9 mmol/L (3.5-5.1); Sodium 143 mmol/L (136-145)
[2018-12-17 04:46] LABS: Calcium 9.9 mg/dL (7.8-10.44); Glucose 125 mg/dL (70-105)
[2018-12-17 04:48] LABS: Anion Gap 12 mmol/L (10-20); Carbon Dioxide 34 mmol/L (22-29)
[2018-12-17 04:50] LABS: BUN (Urea Nitrogen) 49 mg/dL (8.9-20.6); Calc. Creatinine Clearance 217 mL/min (70-130); Estimated GFR-MDRD 65
--- NOTE | 2018-12-17 05:49 | PDOC.FM ---
- Subjective Subjective: Patient is intubated and sedated this AM. Per Nursing Staff, patient has not had any more diarrhea. He does wake and follows commands when off sedation. No other acute events. - Objective Vital Signs & Weight: Vital Signs (12 hours) Temp Pulse Resp Pulse Ox 12/17/18 04:00 99.0 F 20 12/17/18 02:59 97 12/17/18 02:58 97 23 H 93 L 12/17/18 02:00 25 H 12/17/18 00:00 100.2 F H 22 H 12/16/18 22:20 100 22 H 94 L 12/16/18 22:00 20 12/16/18 20:00 100.1 F H 23 H 93 L 12/16/18 18:31 111 H 12/16/18 18:30 112 H 31 H 93 L 12/16/18 17:55 27 H Weight Admit Weight 221.625 kg Weight 217.9 kg Most Recent Monitor Data Heart Rate from ECG 99 NIBP 138/78 NIBP BP-Mean 92 Respiration from ECG 28 SpO2 92 I&O: 12/15/18 12/16/18 12/17/18 05:59 06:59 06:59 Intake Total 1606 Output Total 3830 Balance -2224 Result Diagrams: 12/14/18 05:22 12/17/18 04:15 Phys Exam - Physical Examination Intubated and sedated ET in place Respiratory: no wheezing, clear to auscultation bilateral Cardiovascular: RRR, no significant murmur Gastrointestinal: soft, non-tender, no distention, positive bowel sounds Musculoskeletal: no edema, pulses present intubated and sedated Deviation from normal: intubated and sedated Dx/Plan (1) Acute respiratory failure with hypoxia and hypercapnia Code(s): J96.01 - ACUTE RESPIRATORY FAILURE WITH HYPOXIA; J96.02 - ACUTE RESPIRATORY FAILURE WITH HYPERCAPNIA Status: Acute (2) Obesity hypoventilation syndrome Code(s): E66.2 - MORBID (SEVERE) OBESITY WITH ALVEOLAR HYPOVENTILATION Status : Suspected (3) HIV (human immunodeficiency virus infection) Code(s): B20 - HUMAN IMMUNODEFICIENCY VIRUS [HIV] DISEASE Status: Chronic (4) Acute kidney injury superimposed on CKD Code(s): N17.9 - ACUTE KIDNEY FAILURE, UNSPECIFIED; N18.9 - CHRONIC KIDNEY DISEASE, UNSPECIFIED Status: Acute (5) Thrombocytopenia Code(s): D69.6 - THROMBOCYTOPENIA, UNSPECIFIED Status: Acute (6) Volume depletion, gastrointestinal loss Code(s): E86.9 - VOLUME DEPLETION, UNSPECIFIED Status: Acute (7) HFrEF (heart failure with reduced ejection fraction) Code(s): I50.20 - UNSPECIFIED SYSTOLIC (CONGESTIVE) HEART FAILURE Status: Chronic (8) Latent syphilis in male Code(s): A53.0 - LATENT SYPHILIS, UNSPECIFIED EARLY OR LATE Status: Chronic (9) Morbid obesity Code(s): E66.01 - MORBID (SEVERE) OBESITY DUE TO EXCESS CALORIES Status: Chronic - Plan Plan: 1) Acute Hypoxic Hypercapneic Respiratory Failure: likely 2/2 Obesity hypoventilation syndrome - Pulm consulted for CCU management, appreciate recs - pt continues to remain hypoxic on ventilator. - possible component of volume overload. Being diuresed gently. Steroids added recently - Meropenem added by ID to cover for possible lower respiratory tract infection. - Vent management per Pulm, appreciate Dr. Parrish - Possible trach early this week per Pulm if stable enough 2) HFrEF - Elevated BNP, EF 45-50% on 06/08/18 - Will continue to monitor for signs of fluid overload - strict I/Os, daily weights 3) DANIEL on CKD - Improving with maint IVFs - Creatinine 1.52 this AM 4) Thrombocytopenia: resolved 6) HIV (CD4 250) - Dr. Chapin consulted - HIV therapy has been modified so that patient can receive crushed meds through feeding tube 7) Latent Syphilis-treated - 2nd dose of Pen G during stay 8) HLD -Continue home meds 10) GI losses - Negative labs so far - Dr. Chapin feels like diarrhea could be 2/2 Kaletra - Kaletra discontinued on 12/11, diarrhea has resolved Disposition: Guarded, will continue current plan of care. Addendum - Attending - Attending Attestation Date/Time: 12/17/18 5864 I personally evaluated the patient and discussed the management with Dr. Crain I agree with the History, Examination, Assessment and Plan documented above with any addition or exceptions noted below. Patient remains critically ill intubated and minimal sedation FIO2 of 80%. Considering equipment operator intermodal yard for tracheotomy placement . Appreciate all specialist recommendations consider alf for LTAC note diarrhea resolved.
[2018-12-17] MEDS: Meropenem 2 GM, Admixture Fee 1 EACH in Sodium Chloride 0.9% 100 ML IVPB SCH ×3 (05:52→21:41)
[2018-12-17 06:52] LABS: Actual Bicarbonate (HCO3a) 37.4 mEq/L (22-28); Base Excess (BEa) 10.6 mEq/L (-2.0 to +3.0); CO2 Tension 57.1 mmHg (35.0-45.0); Calcium, Ionized 1.27 mmol/L (1.12-1.30); Carboxyhemoglobin (COHb) 1.2 gm% (0.0-3.0); Hemoglobin (Hb) 15.9 g/dL (14.0-18.0); O2 Tension (PaO2) 60.5 mmHg (80.0-100.0); Potassium - ABG Lab 4.85 mmol/L (3.70-5.30); pH, Arterial 7.43 (7.35-7.45)
[2018-12-17 06:53] LABS: ALV-art Gradient 438.525 (0-20); Puncture Site ALINE
--- NOTE | 2018-12-17 08:09 | OP ---
DATE OF PROCEDURE: 12/15/2018 X-ray shows complete opacification of the right lung. Consider atelectasis and diagnostic therapeutic bronchoscopy lavage was performed on emergency basis. Flexible bronchoscope was used and then after the endotracheal tube bite block in place. Distal trachea was visualized, to my surprise, it was unremarkable. The right lung upper lobe was markedly narrowed, but no obvious mucus plug was seen, this was lavaged and completely clear. Rest of the right middle and right lower lobe was visualized and unremarkable. Left lung inspected thereafter was also unremarkable. No endobronchial obstruction or blood was seen. Both lungs were lavaged with normal saline to clear. Washings sent for Gram stain and C and S. The patient tolerated the procedure well. Job ID: [id number]
[2018-12-17] MEDS: Enoxaparin Sodium 40 MG/0.4 ML SYRINGE SC SCH ×2 (09:09→21:41)
[2018-12-17] MEDS: Famotidine/PF 20 mg/2ml Vial SLOW IVP SCH (09:10)
[2018-12-17] MEDS: Metoprolol Tartrate 25 MG TAB PO SCH ×2 (09:10→21:41)
[2018-12-17] MEDS: Sulfameth/Trimethoprim DS 800-160mg TAB PO SCH (09:10)
[2018-12-17] MEDS: Aspirin 81 mg Enteric Coated Tablet PO SCH (09:10)
--- NOTE | 2018-12-17 09:22 | RAD ---
CHEST 1 VIEW: HISTORY: Intubated patient. COMPARISON: Radiograph from prior day. FINDINGS: The patient is intubated with endotracheal tube tip at the level of the clavicles. Enteric tube is n ot well seen due to under penetration. Heart size is enlarged. Multifocal airspace opacities throug hout the lungs. Moderate effusions. IMPRESSION: Poorly penetrated exam for which the enteric tube tip is not well seen. Extensive airspace opacities throughout the lungs suggesting multifocal pneumonia or worsening edema. POS: [facility]
[2018-12-17] MEDS: Elviteg/Cob/Emtri/Tenof Alafen [Genvoya Tablet] 1 TAB PO SCH (09:32)
[2018-12-17] MEDS: Scopolamine 1.5 mg/72 hour Patch TD SCH (10:18)
--- NOTE | 2018-12-17 11:17 | PRG ---
DATE OF SERVICE: 12/16/2018 ADDENDUM: Please see the note from Dr. Garcia for which I agree. Really no major changes in him, still in the ICU and still not saturating very well despite being on the ventilator and adding pressures and oxygen, etc. It sounds like Pulmonary is worried about even getting a trach right now with his oxygen being so low they are worried about him even going to surgery. Gently diuresing him and just keeping him sedated and comfortable on the vent and doing his respiratory status a little bit better. Still on the same IV antibiotics etc. Really no change in exam. Extremely poor prognosis. Job ID: [id number]
--- NOTE | 2018-12-17 11:25 | PRG ---
DATE OF SERVICE: 12/15/2018 ADDENDUM: Please see the note from Dr. Candace Garcia, for which I agree. This is a 10th day of admission for this unfortunate 32-year-old morbidly obese gentleman, who is here for acute hypoxic respiratory failure likely from Pickwickian syndrome from morbid obesity, also complicated by HIV infection and a low ejection fraction of 45%. It sounds like fairly stable on the ventilator, although having a hard time in getting oxygenated, but sounds like once the O2 levels get higher, plan is to proceed with a tracheostomy for better access and easier long-term weaning off the ventilator. Obviously, a very precarious situation with deconditioning, obesity, and everything else will likely end up having to go to an LTAC something similar when he eventually leaves here, but for now, things are stable. Still on vancomycin and Zosyn for the infection, and then, I believe actually more antibiotics were added by Dr. Chapin for broader coverage. Meropenem was added yesterday. Job ID: [id number]
[2018-12-17] MEDS: Micafungin 100 MG in Sodium Chloride 0.9% 100 ML IVPB SCH (15:08)
--- NOTE | 2018-12-17 16:29 | PRG ---
DATE OF SERVICE: 12/17/2018 SUBJECTIVE: Ceasar Trejo remains mechanically ventilated. Bronchial washings did not grow out any aerobic pathogens. OBJECTIVE: VITAL SIGNS: Blood pressure 112/64, heart rate is 92, respiratory rate is per mechanical ventilation. He is on bilevel ventilation. LUNGS: Remarkable for distant breath sounds because of his size. HEART: Regular rhythm. S1 and S2 are distant. ABDOMEN: Soft. EXTREMITIES: Without asymmetry. LABORATORY DATA: There is no CBC since the 8th. Sodium 143, potassium 4.9, chloride 102, bicarb 34, BUN 49, creatinine 1.52. Blood gas; pH 7.43, CO2 of 57, and pO2 of 60. Chest radiograph shows haziness bilaterally. He was on Bactrim prophylaxis prior to admission and has been on antiviral therapy as well. IMPRESSION: 1. Respiratory failure, not stable enough for tracheostomy at this time. 2. Obesity hypoventilation. 3. Suspected severe obstructive sleep apnea. 4. Human immunodeficiency virus positive. 5. ? pneumonia with acute respiratory distress syndrome. His gas exchange problems would suggest that he is having that. He has had some BNPs that were elevated. So I suppose there could be some component of left ventricular systolic or diastolic dysfunction. He had an echocardiogram done that was of poor quality in May of last year showing an ejection fraction of 45% to 50%. I would suggest that this probably needs to be repeated. We will continue to follow. Critical care time, 30 minutes. Job ID: [id number]
[2018-12-17] MEDS: methylPREDNISolone Sod Succ/PF 125 MG/2 ML VIAL IVP SCH (21:41)
[2018-12-17] MEDS: Bacteriostatic Water 30 ML VIAL IVP SCH (21:42)
[2018-12-18] MEDS: Propofol 1,000 MG/100 ML VIAL IV PRN ×9 (00:15→22:22)
[2018-12-18] MEDS: methylPREDNISolone Sod Succ/PF 125 MG/2 ML VIAL IVP SCH ×3 (04:08→16:53)
[2018-12-18] MEDS: Bacteriostatic Water 30 ML VIAL IVP SCH ×4 (04:08→21:33)
--- NOTE | 2018-12-18 05:58 | PDOC.FM ---
- Subjective Subjective: 33 yo male remains intubated and sedated this AM. Per Nursing Staff, patient was more interactive and alert last night when family was present. However, he was unable to be weaned from ventilator. Sedation needed to be increased due to more alertness. No other history is able to be obtained. - Objective Vital Signs & Weight: Vital Signs (12 hours) Temp Pulse Resp BP Pulse Ox 12/18/18 04:00 98.8 F 20 12/18/18 02:44 86 143/66 H 12/18/18 02:00 20 12/18/18 00:00 99.1 F 20 12/17/18 22:28 97 153/96 H 12/17/18 22:00 20 12/17/18 20:00 99.3 F 20 93 L 12/17/18 19:12 88 142/79 H 12/17/18 18:00 20 Weight Admit Weight 221.625 kg Weight 213.4 kg Most Recent Monitor Data Heart Rate from ECG 86 NIBP 143/85 NIBP BP-Mean 103 Respiration from ECG 20 SpO2 94 I&O: 12/16/18 12/17/18 12/18/18 06:59 06:59 06:59 Intake Total 1941 1478 Output Total 4060 0630 Balance -2119 -1282 Result Diagrams: 12/14/18 05:22 12/18/18 04:38 Phys Exam - Physical Examination HEENT: moist MMs ET tube in place Respiratory: no wheezing, clear to auscultation bilateral Cardiovascular: RRR, no significant murmur Gastrointestinal: soft, non-tender, no distention, positive bowel sounds Musculoskeletal: no edema, pulses present intubated and sedated Skin: no rash Dx/Plan (1) Acute respiratory failure with hypoxia and hypercapnia Code(s): J96.01 - ACUTE RESPIRATORY FAILURE WITH HYPOXIA; J96.02 - ACUTE RESPIRATORY FAILURE WITH HYPERCAPNIA Status: Acute (2) Obesity hypoventilation syndrome Code(s): E66.2 - MORBID (SEVERE) OBESITY WITH ALVEOLAR HYPOVENTILATION Status : Suspected (3) HIV (human immunodeficiency virus infection) Code(s): B20 - HUMAN IMMUNODEFICIENCY VIRUS [HIV] DISEASE Status: Chronic (4) Acute kidney injury superimposed on CKD Code(s): N17.9 - ACUTE KIDNEY FAILURE, UNSPECIFIED; N18.9 - CHRONIC KIDNEY DISEASE, UNSPECIFIED Status: Acute (5) Thrombocytopenia Code(s): D69.6 - THROMBOCYTOPENIA, UNSPECIFIED Status: Acute (6) Volume depletion, gastrointestinal loss Code(s): E86.9 - VOLUME DEPLETION, UNSPECIFIED Status: Acute (7) HFrEF (heart failure with reduced ejection fraction) Code(s): I50.20 - UNSPECIFIED SYSTOLIC (CONGESTIVE) HEART FAILURE Status: Chronic (8) 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 - possible component of volume overload. Being diuresed gently. Steroids added recently - Meropenem added by ID to cover for possible lower respiratory tract infection. - Vent management per Pulm, appreciate Dr. Parrish - Possible trach early this week per Pulm if stable enough 2) HFrEF - Elevated BNP, EF 45-50% on 06/08/18 - Will continue to monitor for signs of fluid overload - strict I/Os, daily weights - Repeat ECHO planned for today. 3) DANIEL on CKD - Improving with maint IVFs - Creatinine 1.30 this AM 4) Thrombocytopenia: resolved 6) HIV (CD4 250) - Dr. Chapin consulted - HIV therapy has been modified so that patient can receive crushed meds through feeding tube 7) Latent Syphilis-treated - 2nd dose of Pen G during stay 8) HLD -Continue home meds 10) GI losses - Negative labs so far - Dr. Chapin feels like diarrhea could be 2/2 Kaletra - Kaletra discontinued on 12/11, diarrhea has resolved Disposition: Guarded, will continue current plan of care. Addendum - Attending - Attending Attestation Date/Time: 12/18/18 0200 I personally evaluated the patient and discussed the management with Dr. Crain I agree with the History, Examination, Assessment and Plan documented above with any addition or exceptions noted below. Patient more responsive and FIO2 decreased 60% , still anticipating tracheostomy rn long term care.
[2018-12-18] MEDS: Meropenem 2 GM, Admixture Fee 1 EACH in Sodium Chloride 0.9% 100 ML IVPB SCH ×3 (06:03→21:30)
[2018-12-18 06:10] LABS: Anion Gap 9 mmol/L (10-20); BUN (Urea Nitrogen) 48 mg/dL (8.9-20.6); Calc. Creatinine Clearance 246 mL/min (70-130); Calcium 10.1 mg/dL (7.8-10.44); Carbon Dioxide 36 mmol/L (22-29); Chloride 104 mmol/L (98-107); Estimated GFR-MDRD 78; Glucose 118 mg/dL (70-105); Potassium 4.7 mmol/L (3.5-5.1); Sodium 144 mmol/L (136-145)
[2018-12-18 07:22] LABS: Actual Bicarbonate (HCO3a) 35.5 mEq/L (22-28); Base Excess (BEa) 9.1 mEq/L (-2.0 to +3.0); CO2 Tension 54.4 mmHg (35.0-45.0); Calcium, Ionized 1.35 mmol/L (1.12-1.30); Carboxyhemoglobin (COHb) 1.3 gm% (0.0-3.0); Potassium - ABG Lab 4.61 mmol/L (3.70-5.30); pH, Arterial 7.43 (7.35-7.45)
[2018-12-18 07:26] LABS: O2 Tension (PaO2) 58.5 mmHg (80.0-100.0); Puncture Site RR
--- NOTE | 2018-12-18 07:50 | PRG ---
DATE OF SERVICE: 12/17/2018 SUBJECTIVE: Mr. Trejo in the ICU still intubated. OBJECTIVE: VITAL SIGNS: His FiO2 is at 70%. He had slight temp elevation of 100.8, now is 99.2 and O2 saturations ranged from 93% to 100%. HEENT: His pupils are miotic. LUNGS: Sounds are symmetric. HEART: S1 and S2 regular rate. Diminished heart sounds. ABDOMEN: Massive panniculus. EXTREMITIES: He moves his extremities, but does not follow commands. LABORATORY DATA: His white cell count 8.7, hemoglobin 15, platelets 206. His creatinine was 1.52 with GFR 65. Sodium 143. ASSESSMENT AND DISCUSSION: Morbid obesity, human immunodeficiency virus seropositive status, CD4 in the upper 100s about 186 last time checked in November a few days ago. Viral load suppressed with PCR less than 20 and now with respiratory failure with difficulties and decrease in the FiO2 and inspired air. A lot of V/ Q mismatch in the infiltrates which are diffuse. The concern with Pneumocystis has been discussed with Dr. Fisher. Since the patient has quite decent CD4 cell count , one is effective anti-retroviral therapy plus Pneumocystis prophylaxis with Bactrim, which he was compliant with the likelihood of Pneumocystis is low. We will add Fungitell assay to complement that assessment. He did have bronchoscopy done on December 07 with lavage, no evidence of mucus plugging was seen. The other areas of the lungs were not found to be significant. No stains were submitted for Pneumocystis from the lavage specimen there. He is currently on meropenem and micafungin and will fu Fungitell results. Job ID: [id number] [facility]
[2018-12-18] MEDS: Lactated Ringer's 1,000 ML IV SCH (10:10)
[2018-12-18] MEDS: Enoxaparin Sodium 40 MG/0.4 ML SYRINGE SC SCH ×2 (10:11→20:59)
[2018-12-18] MEDS: Famotidine/PF 20 mg/2ml Vial SLOW IVP SCH ×2 (10:11→20:59)
[2018-12-18] MEDS: Metoprolol Tartrate 25 MG TAB PO SCH ×2 (10:12→20:59)
[2018-12-18] MEDS: Aspirin 81 mg Enteric Coated Tablet PO SCH (10:12)
[2018-12-18] MEDS: Elviteg/Cob/Emtri/Tenof Alafen [Genvoya Tablet] 1 TAB PO SCH (10:16)
[2018-12-18] MEDS: Micafungin 100 MG in Sodium Chloride 0.9% 100 ML IVPB SCH (14:39)
--- NOTE | 2018-12-18 15:43 | PRG ---
DATE OF SERVICE: 12/18/2018 SUBJECTIVE: The patient opens his eyes and follows commands. He moves all his 4 extremities slightly. He does establish eye contact. OBJECTIVE: VITAL SIGNS: With a T-max of 98 to 99, blood pressure 149/87, FiO2 is down to 60, still with a high PEEP, O2 saturations are at 93. LUNGS: Symmetric. Coarse breath sounds. HEART: S1 and S2. Regular rate. ABDOMEN: Soft with a very large panniculus and has a right IJ triple-lumen catheter and a Camargo catheter. He has been negative in I's and O's for the past many days. LABORATORY DATA: White cell count is 8.7, hemoglobin 15.6, platelets 206, 66% neutrophils, 6% bands, and 20% lymphocytes. Chemistry with sodium of 144, creatinine 1.3, which has improved. ASSESSMENT AND DISCUSSION: 1. Morbid obesity. 2. Hypoventilation syndrome. 3. Human immunodeficiency virus infection with undetectable viral load, CD4 in the 180 range, on adequate pneumocystis prophylaxis with Bactrim both before and during this admission. 4. Hypoventilation syndrome with respiratory failure, complications with following intubation and ventilation with possible ventilation-associated pneumonia or event. Again, pneumocystis is unlikely and I would continue current therapeutic in efforts as they are now. Eventual tracheostomy to be placed whenever he is more stable from the ventilatory standpoint. Job ID: [id number]
--- NOTE | 2018-12-18 16:43 | PRG ---
DATE OF SERVICE: 12/18/2018 SUBJECTIVE: Mr. Trejo is essentially unchanged, heart rates in the 80s, blood pressure 144/80, remains mechanically ventilated. He will awake and move his extremities. Intake and outputs, negative 486. OBJECTIVE: LUNGS: Remarkable for distant breath sounds. HEART: Regular rhythm. Distant S1 and S2. ABDOMEN: Nontender. EXTREMITIES: Without asymmetry or edema. NEUROLOGIC: He moves all extremities spontaneously when stimulated. LABORATORY DATA: White count 8.7, hemoglobin 15.6, and platelets 206, that was on the 8th. Sodium 144, potassium 4.7, chloride 104, bicarb 36, BUN 48, and creatinine 1.3. IMPRESSION: 1. Respiratory failure. 2. Human immunodeficiency virus positive, on anti-retroviral therapy and Bactrim prophylaxis. 3. Obesity. 4. Pulmonary edema, predominantly noncardiogenic. 5. Acute on chronic renal dysfunction, it appears to be improving. 6. Significant hypoxemia and slowly weaning his FiO2 with diuresis. PROGNOSIS: Quite guarded. CRITICAL CARE TIME: 30 minutes. Job ID: [id number] [facility]
[2018-12-18] MEDS: methylPREDNISolone Sod Succ 40 MG VIAL IVP SCH (21:30)
[2018-12-19] MEDS: Propofol 1,000 MG/100 ML VIAL IV PRN ×10 (01:22→23:27)
[2018-12-19] MEDS: methylPREDNISolone Sod Succ 40 MG VIAL IVP SCH ×4 (03:31→22:21)
[2018-12-19] MEDS: Bacteriostatic Water 30 ML VIAL IVP SCH ×4 (03:31→22:21)
[2018-12-19 05:25] LABS: Hemoglobin 16.6 g/dL (14.0-18.0); Lymphocytes 9 % (21-51); MDiff Complete? YES; Mean Corpuscular HGB CONC 29.1 g/dL (32.0-36.0); Mean Corpuscular Hemoglobin 25.9 pg (27.0-31.0); Mean Corpuscular Volume 89.2 fL (78.0-98.0); Mean Platelet Volume 10.9 fL (7.4-10.4); Monocytes 4 % (0-10); Neutrophil 87 % (42-75); Platelet Count 191 thou/uL (130-400); Platelet Morphology Comment Appears Adequate; RBC Distribution Width 15.6 % (11.5-14.5); RBC Morphology Normal; White Blood Cell (WBC) Count 9.3 thou/uL (4.8-10.8)
[2018-12-19 05:31] LABS: Anion Gap 12 mmol/L (10-20); BUN (Urea Nitrogen) 55 mg/dL (8.9-20.6); Calc. Creatinine Clearance 240 mL/min (70-130); Calcium 10.6 mg/dL (7.8-10.44); Carbon Dioxide 33 mmol/L (22-29); Chloride 105 mmol/L (98-107); Estimated GFR-MDRD 76; Glucose 100 mg/dL (70-105); Potassium 4.8 mmol/L (3.5-5.1); Sodium 145 mmol/L (136-145)
--- NOTE | 2018-12-19 05:50 | PDOC.FM ---
- Subjective Subjective: 33 yo male seen at bedside this AM. Patient is intubated and sedated. Per Nursing Staff, no acute changes overnight. In conversations with Pulmonology , the prognosis is guarded. No other history is able to be obtained. - Objective Vital Signs & Weight: Vital Signs (12 hours) Temp Pulse Resp BP Pulse Ox 12/19/18 04:00 98.2 F 29 H 12/19/18 02:30 92 146/87 H 12/19/18 02:00 25 H 12/19/18 00:00 98.0 F 20 12/18/18 22:30 89 156/87 H 12/18/18 22:00 20 12/18/18 20:00 99.1 F 25 H 12/18/18 19:58 94 L 12/18/18 18:44 97 148/77 H 12/18/18 18:00 25 H Weight Admit Weight 221.625 kg Weight 213.188 kg Most Recent Monitor Data Heart Rate from ECG 105 NIBP 130/93 NIBP BP-Mean 115 Respiration from ECG 22 SpO2 91 I&O: 12/17/18 12/18/18 12/19/18 06:59 06:59 06:59 Intake Total 1941 2424 1946 Output Total 0920 2910 2335 [facility] -2119 -486 -389 Result Diagrams: 12/19/18 04:31 12/19/18 04:31 Phys Exam - Physical Examination Intubated and sedated HEENT: moist MMs ET in place Neck: no nodes Respiratory: no wheezing, clear to auscultation bilateral Cardiovascular: RRR, no significant murmur Gastrointestinal: soft, non-tender, no distention, positive bowel sounds Musculoskeletal: no edema intubated and sedated. Deviation from normal: intubated and sedated Skin: no rash Dx/Plan (1) Acute respiratory failure with hypoxia and hypercapnia Code(s): J96.01 - ACUTE RESPIRATORY FAILURE WITH HYPOXIA; J96.02 - ACUTE RESPIRATORY FAILURE WITH HYPERCAPNIA Status: Acute (2) Obesity hypoventilation syndrome Code(s): E66.2 - MORBID (SEVERE) OBESITY WITH ALVEOLAR HYPOVENTILATION Status : Suspected (3) HIV (human immunodeficiency virus infection) Code(s): B20 - HUMAN IMMUNODEFICIENCY VIRUS [HIV] DISEASE Status: Chronic (4) Acute kidney injury superimposed on CKD Code(s): N17.9 - ACUTE KIDNEY FAILURE, UNSPECIFIED; N18.9 - CHRONIC KIDNEY DISEASE, UNSPECIFIED Status: Acute (5) Thrombocytopenia Code(s): D69.6 - THROMBOCYTOPENIA, UNSPECIFIED Status: Acute (6) Volume depletion, gastrointestinal loss Code(s): E86.9 - VOLUME DEPLETION, UNSPECIFIED Status: Acute (7) HFrEF (heart failure with reduced ejection fraction) Code(s): I50.20 - UNSPECIFIED SYSTOLIC (CONGESTIVE) HEART FAILURE Status: Chronic (8) 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 - possible component of volume overload. Being diuresed gently. Steroids added recently - Admission weight 227 kg and now 211 kg. - Meropenem added by ID to cover for possible lower respiratory tract infection. - Vent management per Pulm, appreciate Dr. Parrish/Phillip - Possible trach this week per Pulm if stable enough 2) HFrEF - Elevated BNP, EF 45-50% on 06/08/18 - Will continue to monitor for signs of fluid overload - strict I/Os, daily weights - Repeat ECHO had poor quality images, but reported EF WNL 3) DANIEL on CKD - Continue to monitor - Creatinine 1.33 this AM 4) Thrombocytopenia: resolved - 191 this AM. 6) HIV (CD4 250) - Dr. Chapin consulted - HIV therapy has been modified so that patient can receive crushed meds through feeding tube 7) Latent Syphilis-treated - 2nd dose of Pen G during stay 8) HLD -Continue home meds 10) GI losses - Negative labs so far - Dr. Chapin feels like diarrhea could be 2/2 Kaletra - Kaletra discontinued on 12/11, diarrhea has resolved Disposition: Guarded, will continue current plan of care. Addendum - Attending - Attending Attestation Date/Time: 12/19/18 5913 I personally evaluated the patient and discussed the management with Dr. Breann I agree with the History, Examination, Assessment and Plan documented above with any addition or exceptions noted below.
[2018-12-19] MEDS: Meropenem 2 GM, Admixture Fee 1 EACH in Sodium Chloride 0.9% 100 ML IVPB SCH ×3 (06:04→22:21)
[2018-12-19 07:28] LABS: Actual Bicarbonate (HCO3a) 35.4 mEq/L (22-28); Analyzer IN Cardio OR; Base Excess (BEa) 9.4 mEq/L (-2.0 to +3.0); CO2 Tension 51.7 mmHg (35.0-45.0); Calcium, Ionized 1.35 mmol/L (1.12-1.30); Carboxyhemoglobin (COHb) 1.6 gm% (0.0-3.0); Hemoglobin (Hb) 16.8 g/dL (14.0-18.0); O2 Tension (PaO2) 52.4 mmHg (80.0-100.0); Potassium - ABG Lab 4.55 mmol/L (3.70-5.30); pH, Arterial 7.45 (7.35-7.45)
[2018-12-19 07:29] LABS: ALV-art Gradient 310.775 (0-20); Puncture Site RBA
--- NOTE | 2018-12-19 07:55 | RAD ---
AP VIEW CHEST: HISTORY: Ventilator-dependent patient. FINDINGS: AP view chest is obtained on 12/19/2018. Comparison is made to previous exam from 12/17/2018. AP view chest demonstrates EKG leads seen over the chest. The patient was intubated. Mild cardiomegaly is seen. Pulmonary vascular congestion is seen. There is diffuse airspace opacity seen compatible with pulmonary edema. IMPRESSION: Cardiomegaly, pulmonary vascular congestion, and airspace opacities concerning for congestive heart f ailure. POS: [facility]
[2018-12-19] MEDS: Metoprolol Tartrate 25 MG TAB PO SCH ×2 (09:26→22:20)
[2018-12-19] MEDS: Sulfameth/Trimethoprim DS 800-160mg TAB PO SCH (09:26)
[2018-12-19] MEDS: Aspirin 81 mg Enteric Coated Tablet PO SCH (09:26)
[2018-12-19] MEDS: Famotidine/PF 20 mg/2ml Vial SLOW IVP SCH ×2 (09:27→22:22)
[2018-12-19] MEDS: Enoxaparin Sodium 40 MG/0.4 ML SYRINGE SC SCH ×2 (09:27→22:20)
[2018-12-19] MEDS: Elviteg/Cob/Emtri/Tenof Alafen [Genvoya Tablet] 1 TAB PO SCH (09:28)
[2018-12-19] MEDS: Micafungin 100 MG in Sodium Chloride 0.9% 100 ML IVPB SCH (14:25)
[2018-12-19] MEDS ORDERED: Furosemide 40 MG/4 ML VIAL IVP ONE (16:30)
--- NOTE | 2018-12-19 17:59 | PRG ---
DATE OF SERVICE: 12/19/2018 SUBJECTIVE: Ceasar Andrade remains sedated, mechanically ventilated. OBJECTIVE: GENERAL: He is in no acute distress. VITAL SIGNS: Respiratory rates in the 20s, blood pressure is 135/68 this afternoon, heart rate is in the 90s. Oximetry is in the low 90s. LUNGS: Distant and clear. HEART: Regular rhythm. ABDOMEN: Soft. EXTREMITIES: Without asymmetry or significant edema. LABORATORY DATA: White count 9.3, hemoglobin 16.6, and platelets 191. Sodium 145, potassium 4.8, chloride 105, bicarb 33, BUN 55, creatinine 1.33. PH 7.45, CO2 51, PO2 52. Current ventilator settings are rate of 20, FiO2 of 60, 12 of PEEP, 20 of pressure support. DIAGNOSTIC DATA: Chest radiograph continues to show bilateral alveolar infiltrates. Echocardiogram was of poor quality. It was estimated that the ejection fraction is normal. IMPRESSION: 1. Respiratory failure without diffuse alveolar infiltrates, likely adult respiratory distress syndrome, currently not weanable and not stable enough with high PEEP and high FiO2 to undergo tracheostomy. 2. HIV positive, on antiviral therapy plus Bactrim prophylaxis, Pneumocystis becomes unlikely, but may need to be ruled out with a lavage. 3. Obesity. 4. [id number] renal dysfunction. 5. Obesity hypoventilation most likely. PLAN: Continue supportive care. His prognosis remains quite guarded. CRITICAL CARE TIME: 30 minutes. Job ID: [id number]
--- NOTE | 2018-12-19 22:01 | RAD ---
PORTABLE AP CHEST: Date: 12/19/18 HISTORY: Tube placement. COMPARISON: 12/19/18 at 1555 hours. FINDINGS: Endotracheal tube remains in place with tip at the level of the thoracic inlet. Heart remains enlarge d. There are increased parenchymal air space opacities at each lung base and in the mid lung zones, g reater on the left. Pulmonary vasculature does appear increased. Right lateral costophrenic angle is excluded from view. There is questionable small left pleural effusion. IMPRESSION: 1. Cardiomegaly and pulmonary vascular congestion with findings worrisome for CHF. 2. Bilateral alveolar opacities, which may be related to asymmetric pulmonary edema or infectious pr ocess. 3. Endotracheal tube in place. POS: [facility]
[2018-12-20] MEDS: Propofol 1,000 MG/100 ML VIAL IV PRN ×9 (02:27→23:05)
[2018-12-20] MEDS: methylPREDNISolone Sod Succ 40 MG VIAL IVP SCH ×4 (04:56→22:00)
[2018-12-20] MEDS: Bacteriostatic Water 30 ML VIAL IVP SCH ×4 (04:57→22:00)
--- NOTE | 2018-12-20 05:49 | PDOC.FM ---
- Subjective Subjective: 33 yo male seen at bedside this AM. Patient remains intubated and sedated. Per Nursing Staff, no acute changes overnight. Spoke with RT and he stated that if he can get to Trach-collar he believes there will be quite a bit of improvement; however, patient hasn't proven to be stable enough to move to that for now. No other history is able to be obtained. - Objective Vital Signs & Weight: Vital Signs (12 hours) Temp Pulse Resp BP Pulse Ox 12/20/18 04:00 98.7 F 26 H 12/20/18 02:06 104 H 142/75 H 12/20/18 02:00 25 H 12/20/18 00:00 98.3 F 20 12/19/18 23:00 23 H 12/19/18 22:31 101 H 117/68 12/19/18 22:00 25 H 12/19/18 20:00 98.6 F 30 H 89 L 12/19/18 18:36 98 126/76 12/19/18 18:00 26 H Weight Admit Weight 221.625 kg Weight 209 kg Most Recent Monitor Data Heart Rate from ECG 103 NIBP 130/68 NIBP BP-Mean 94 Respiration from ECG 22 SpO2 90 I&O: 12/18/18 12/19/18 12/20/18 06:59 06:59 06:59 Intake Total 2424 3009 1714 Output Total 2910 2560 4275 Balance -486 989 -8859 Result Diagrams: 12/20/18 06:11 12/20/18 06:11 Phys Exam - Physical Examination intubated and sedated HEENT: moist MMs ET in place Respiratory: no wheezing, clear to auscultation bilateral Cardiovascular: RRR, no significant murmur Gastrointestinal: soft, non-tender, no distention, positive bowel sounds Musculoskeletal: no edema, pulses present intubated and sedated Skin: no rash Dx/Plan (1) Acute respiratory failure with hypoxia and hypercapnia Code(s): J96.01 - ACUTE RESPIRATORY FAILURE WITH HYPOXIA; J96.02 - ACUTE RESPIRATORY FAILURE WITH HYPERCAPNIA Status: Acute (2) Obesity hypoventilation syndrome Code(s): E66.2 - MORBID (SEVERE) OBESITY WITH ALVEOLAR HYPOVENTILATION Status : Suspected (3) HIV (human immunodeficiency virus infection) Code(s): B20 - HUMAN IMMUNODEFICIENCY VIRUS [HIV] DISEASE Status: Chronic (4) Acute kidney injury superimposed on CKD Code(s): N17.9 - ACUTE KIDNEY FAILURE, UNSPECIFIED; N18.9 - CHRONIC KIDNEY DISEASE, UNSPECIFIED Status: Acute (5) Thrombocytopenia Code(s): D69.6 - THROMBOCYTOPENIA, UNSPECIFIED Status: Acute (6) Volume depletion, gastrointestinal loss Code(s): E86.9 - VOLUME DEPLETION, UNSPECIFIED Status: Acute (7) HFrEF (heart failure with reduced ejection fraction) Code(s): I50.20 - UNSPECIFIED SYSTOLIC (CONGESTIVE) HEART FAILURE Status: Chronic (8) 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 - possible component of volume overload. Being diuresed gently. Steroids added recently - Admission weight 227 kg and now 209 kg. - Meropenem added by ID to cover for possible lower respiratory tract infection. - Vent management per Pulm, appreciate Dr. Parrish/Phillip - Possible trach this week per Pulm if stable enough 2) HFrEF - Elevated BNP, EF 45-50% on 06/08/18 - Will continue to monitor for signs of fluid overload - strict I/Os, daily weights - Repeat ECHO had poor quality images, but reported EF WNL 3) DANIEL on CKD - Continue to monitor - Creatinine 1.49 this AM 4) Thrombocytopenia: resolved - 177 this AM. 6) HIV (CD4 250) - Dr. Chapin consulted - HIV therapy has been modified so that patient can receive crushed meds through feeding tube 7) Latent Syphilis-treated - 2nd dose of Pen G during stay 8) HLD -Continue home meds 10) GI losses - Negative labs so far - Dr. Chapin feels like diarrhea could be 2/2 Kaletra - Kaletra discontinued on 12/11, diarrhea has resolved Disposition: Guarded, will continue current plan of care. Addendum - Attending - Attending Attestation Date/Time: 12/20/18 1236 I personally evaluated the patient and discussed the management with Dr. Crain I agree with the History, Examination, Assessment and Plan documented above with any addition or exceptions noted below. Patient remains critical status .
[2018-12-20] MEDS: Meropenem 2 GM, Admixture Fee 1 EACH in Sodium Chloride 0.9% 100 ML IVPB SCH ×3 (06:14→22:00)
[2018-12-20 06:39] LABS: Eosinophils 1 % (0-10); Hemoglobin 16.7 g/dL (14.0-18.0); Lymphocytes 17 % (21-51); MDiff Complete? YES; Mean Corpuscular HGB CONC 29.6 g/dL (32.0-36.0); Mean Corpuscular Hemoglobin 26.5 pg (27.0-31.0); Mean Corpuscular Volume 89.7 fL (78.0-98.0); Mean Platelet Volume 10.6 fL (7.4-10.4); Monocytes 11 % (0-10); Neutrophil 71 % (42-75); Platelet Count 177 thou/uL (130-400); Platelet Morphology Comment Appears Adequate; RBC Distribution Width 15.7 % (11.5-14.5); Red Blood Cell (RBC) Count 6.28 mill/uL (4.70-6.10); White Blood Cell (WBC) Count 9.8 thou/uL (4.8-10.8)
[2018-12-20 06:41] LABS: Anion Gap 11 mmol/L (10-20); BUN (Urea Nitrogen) 67 mg/dL (8.9-20.6); Calc. Creatinine Clearance 210 mL/min (70-130); Calcium 10.2 mg/dL (7.8-10.44); Carbon Dioxide 32 mmol/L (22-29); Chloride 105 mmol/L (98-107); Estimated GFR-MDRD 66; Glucose 108 mg/dL (70-105); Potassium 4.9 mmol/L (3.5-5.1); Sodium 143 mmol/L (136-145)
[2018-12-20 06:50] LABS: Actual Bicarbonate (HCO3a) 35.9 mEq/L (22-28); Base Excess (BEa) 9.5 mEq/L (-2.0 to +3.0); CO2 Tension 53.4 mmHg (35.0-45.0); Calcium, Ionized 1.35 mmol/L (1.12-1.30); Carboxyhemoglobin (COHb) 1.6 gm% (0.0-3.0); Hemoglobin (Hb) 17.1 g/dL (14.0-18.0); Potassium - ABG Lab 4.73 mmol/L (3.70-5.30); pH, Arterial 7.45 (7.35-7.45)
[2018-12-20 06:51] LABS: O2 Tension (PaO2) 58.8 mmHg (80.0-100.0); Puncture Site RRA
--- NOTE | 2018-12-20 08:57 | RAD ---
PORTABLE CHEST: HISTORY: CCU followup. Ventilator followup. COMPARISON: 12/19/2018. FINDINGS: Cardiomegaly. Vascular congestion. Bibasilar infiltrates and/or atelectasis with small bilateral ef fusions. Suboptimally evaluated due to body habitus. No evidence of significant interval change fro m yesterday. POS: [facility]
[2018-12-20] MEDS: Metoprolol Tartrate 25 MG TAB PO SCH ×2 (09:25→20:09)
[2018-12-20] MEDS: Aspirin 81 mg Enteric Coated Tablet PO SCH (09:26)
[2018-12-20] MEDS: Famotidine/PF 20 mg/2ml Vial SLOW IVP SCH ×2 (09:26→20:08)
[2018-12-20] MEDS: Scopolamine 1.5 mg/72 hour Patch TD SCH (09:26)
[2018-12-20] MEDS: Enoxaparin Sodium 40 MG/0.4 ML SYRINGE SC SCH ×2 (09:27→20:09)
[2018-12-20] MEDS: Elviteg/Cob/Emtri/Tenof Alafen [Genvoya Tablet] 1 TAB PO SCH (09:27)
--- NOTE | 2018-12-20 10:15 | RAD ---
CHEST 1 VIEW: HISTORY: Respiratory insufficiency. COMPARISON: 12/20/2018. FINDINGS: Large body habitus lowers the sensitivity of the study. Poor inspiration. Endotracheal tube and NG tubes are in place, the distal tip of the NG tube is not imaged. Marked cardiomegaly with bilateral vascular congestion and interstitial and alveolar parenchymal changes and pleural effusion changes, e vidence for extensive edema. IMPRESSION: Overall stable chest with marked cardiomegaly, vascular congestion, and edema and pleural effusions. Continue short-term followup. POS: [facility]
--- NOTE | 2018-12-20 13:25 | PRG ---
DATE OF SERVICE: 12/20/2018 SUBJECTIVE: Ceasar Trejo has made no progress. His endotracheal tube apparently was pulled back a little bit last night and readvance. Chest x-ray this morning shows the tube to be a little high, so was advanced 2 cm. Still has diffuse infiltrates. OBJECTIVE: VITAL SIGNS: He is afebrile. Heart rate is 97, blood pressure 155/ 87, oximetry is in the high 80s. LUNGS: Remarkable for distant breath sounds. HEART: Regular rhythm. ABDOMEN: Soft. EXTREMITIES: Without asymmetry or edema. LABORATORY DATA: White count 9.8, hemoglobin 16.7, platelets 177. Sodium 143, potassium 4.9, chloride 105, bicarb 32, BUN 67, creatinine 1.49. PH 7.45, CO2 53, PO2 . IMPRESSION: Pneumonia with acute respiratory distress syndrome. Hopefully, we will see some clinical improvement soon. He is not weanable. He is not a candidate for tracheostomy at this point because of his gas exchange issues. Might consider bronchoscopy with lavage in the morning, if he fails to improve at all. Critical care time is 35 minutes. Job ID: [id number] MTDD
--- NOTE | 2018-12-20 16:04 | PRG ---
DATE OF SERVICE: 12/20/2018 SUBJECTIVE: Still intubated with the same settings. No improvement in the overall ventilatory function. No diarrhea. OBJECTIVE: VITAL SIGNS: His temperature has been normal for the past few days. His BP is 130/80, pulse 95, O2 saturation 89 with 60% FiO2. HEENT: His ocular movements are conjugate. LUNGS: Coarse breath sounds. HEART: S1 and S2. Regular rate. ABDOMEN: Very large panniculus. Soft. Camargo catheter in place. I's and O's have been negative for the most part. LABORATORY DATA: White cell count 9.8, hemoglobin 16, platelets 177. Sodium 143, creatinine 1.49. Fungitell assay was less than 31 and respiratory culture from the bronchoscopy without any significant findings. Chest x-ray with poor inspiration, ET tube in place, marked cardiomegaly, bilateral vascular congestion, interstitial and alveolar parenchymal changes and pleural effusion changes, extensive edema. ASSESSMENT AND DISCUSSION: Morbid obesity hypoventilation syndrome, human immunodeficiency viruses infection with previous undetectable viral load and CD4 in the 180 range, in on pneumocystis prophylaxis, negative Fungitell study, persistence of infiltrates with the possibility of persistence of pulmonary edema, opportunistic infectious process is felt to be less likely. He may need a bronchoscopy as discussed by Dr. Fisher. Probably be able to discontinue his Merrem in the next day or two. Job ID: [id number]
[2018-12-20] MEDS: Acetaminophen 325 MG TAB PO PRN (22:07)
[2018-12-21] MEDS: Propofol 1,000 MG/100 ML VIAL IV PRN ×10 (01:30→23:39)
[2018-12-21] MEDS: Bacteriostatic Water 30 ML VIAL IVP SCH ×4 (04:00→23:22)
[2018-12-21] MEDS: methylPREDNISolone Sod Succ 40 MG VIAL IVP SCH ×4 (04:00→21:22)
[2018-12-21] MEDS: Meropenem 2 GM, Admixture Fee 1 EACH in Sodium Chloride 0.9% 100 ML IVPB SCH ×2 (05:54→14:26)
--- NOTE | 2018-12-21 05:55 | PDOC.FM ---
- Subjective Subjective: 33 yo male seen at bedside this AM. Patient remains intubated and sedated. Per Nursing Staff, no acute changes overnight. Nursing states his oxygen saturation improved spontaneously around 0500 this AM. No other history is able to be obtained. - Objective Vital Signs & Weight: Vital Signs (12 hours) Temp Pulse Resp BP Pulse Ox 12/21/18 04:00 99.5 F 30 H 12/21/18 02:24 109 H 127/89 12/21/18 02:00 31 H 12/21/18 00:00 98.1 F 25 H 12/20/18 23:00 26 H 12/20/18 22:21 105 H 137/85 12/20/18 22:00 25 H 12/20/18 20:00 99 F 31 H 89 L 12/20/18 18:30 105 H 124/70 12/20/18 18:00 25 H Weight Admit Weight 221.625 kg Weight 207.8 kg Most Recent Monitor Data Heart Rate from ECG 113 NIBP 131/84 NIBP BP-Mean 104 Respiration from ECG 36 SpO2 98 I&O: 12/19/18 12/20/18 12/21/18 06:59 06:59 06:59 Intake Total 3009 2867 2314 Output Total 2560 1182 1058 Balance 267 -7109 -3020 Result Diagrams: 12/21/18 05:49 12/21/18 05:49 Phys Exam - Physical Examination intubated and sedated HEENT: moist MMs Respiratory: no wheezing, clear to auscultation bilateral Cardiovascular: RRR, no significant murmur Gastrointestinal: soft, non-tender, no distention, positive bowel sounds Musculoskeletal: no edema, pulses present intubated and sedated Deviation from normal: intubated and sedated Dx/Plan (1) Acute respiratory failure with hypoxia and hypercapnia Code(s): J96.01 - ACUTE RESPIRATORY FAILURE WITH HYPOXIA; J96.02 - ACUTE RESPIRATORY FAILURE WITH HYPERCAPNIA Status: Acute (2) Obesity hypoventilation syndrome Code(s): E66.2 - MORBID (SEVERE) OBESITY WITH ALVEOLAR HYPOVENTILATION Status : Suspected (3) HIV (human immunodeficiency virus infection) Code(s): B20 - HUMAN IMMUNODEFICIENCY VIRUS [HIV] DISEASE Status: Chronic (4) Acute kidney injury superimposed on CKD Code(s): N17.9 - ACUTE KIDNEY FAILURE, UNSPECIFIED; N18.9 - CHRONIC KIDNEY DISEASE, UNSPECIFIED Status: Acute (5) Thrombocytopenia Code(s): D69.6 - THROMBOCYTOPENIA, UNSPECIFIED Status: Acute (6) Volume depletion, gastrointestinal loss Code(s): E86.9 - VOLUME DEPLETION, UNSPECIFIED Status: Acute (7) HFrEF (heart failure with reduced ejection fraction) Code(s): I50.20 - UNSPECIFIED SYSTOLIC (CONGESTIVE) HEART FAILURE Status: Chronic (8) 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 - possible component of volume overload. Being diuresed gently. Steroids added recently - Admission weight 227 kg and now 209 kg. - Meropenem added by ID to cover for possible lower respiratory tract infection. Per Dr. Chapin can be de-escalated today or tomorrow. - Vent management per Pulm, appreciate Dr. Parrish/Phillip - Patient not weanable from ventilator Per Pulm. Plan for possible bronchoscopy and lavage this AM with Dr. Fisher. 2) HFrEF - Elevated BNP, EF 45-50% on 06/08/18 - Will continue to monitor for signs of fluid overload - strict I/Os, daily weights - Repeat ECHO had poor quality images, but reported EF WNL 3) DANIEL on CKD - Continue to monitor - Creatinine _ this AM 4) Thrombocytopenia: resolved - _ this AM. 6) HIV (CD4 250) - Dr. Chapin consulted - HIV therapy has been modified so that patient can receive crushed meds through feeding tube 7) Latent Syphilis-treated - 2nd dose of Pen G during stay 8) HLD -Continue home meds 10) GI losses - Negative labs so far - Dr. Chapin feels like diarrhea could be 2/2 Kaletra - Kaletra discontinued on 12/11, diarrhea has resolved Disposition: Guarded, will continue current plan of care. Addendum - Attending - Attending Attestation Date/Time: 12/21/18 1048 I personally evaluated the patient and discussed the management with Dr. Crain I agree with the History, Examination, Assessment and Plan documented above with any addition or exceptions noted below. Note hyperkalemia rec repeat and address address. RFT remain stable appears prerenal .Patient with improvement in oxygenation hopefully beginning to make turn around. [facility] prognosis remains guarded . Patient's Sister CAITIE has been informed the critical nature and problems with ventilation oxygenation at present.
[2018-12-21 06:21] LABS: Anion Gap 15 mmol/L (10-20); BUN (Urea Nitrogen) 70 mg/dL (8.9-20.6); Calc. Creatinine Clearance 209 mL/min (70-130); Calcium 9.9 mg/dL (7.8-10.44); Carbon Dioxide 28 mmol/L (22-29); Chloride 106 mmol/L (98-107); Estimated GFR-MDRD 66; Glucose 104 mg/dL (70-105); Potassium 5.4 mmol/L (3.5-5.1); Sodium 144 mmol/L (136-145)
[2018-12-21 06:39] LABS: Actual Bicarbonate (HCO3a) 35.5 mEq/L (22-28); Base Excess (BEa) 8.4 mEq/L (-2.0 to +3.0); CO2 Tension 57.3 mmHg (35.0-45.0); Calcium, Ionized 1.28 mmol/L (1.12-1.30); Carboxyhemoglobin (COHb) 1.4 gm% (0.0-3.0); Hemoglobin (Hb) 17.2 g/dL (14.0-18.0); O2 Tension (PaO2) 64.1 mmHg (80.0-100.0); Potassium - ABG Lab 5.09 mmol/L (3.70-5.30); pH, Arterial 7.41 (7.35-7.45)
[2018-12-21 06:41] LABS: ALV-art Gradient 292.075 (0-20); Puncture Site RRA
[2018-12-21 07:42] LABS: Band 2 % (5-11); Hemoglobin 16.8 g/dL (14.0-18.0); Lymphocytes 10 % (21-51); MDiff Complete? YES; Mean Corpuscular Hemoglobin 26.1 pg (27.0-31.0); Mean Platelet Volume 10.8 fL (7.4-10.4); Monocytes 10 % (0-10); Neutrophil 78 % (42-75); Platelet Count 175 thou/uL (130-400); RBC Distribution Width 16.2 % (11.5-14.5); Red Blood Cell (RBC) Count 6.45 mill/uL (4.70-6.10); White Blood Cell (WBC) Count 9.7 thou/uL (4.8-10.8)
--- NOTE | 2018-12-21 08:26 | RAD ---
PORTABLE SEMIUPRIGHT FRONTAL CHEST RADIOGRAPH: DATE: 12/21/2018. COMPARISON: 12/20/2018. HISTORY: Ventilated patient. FINDINGS: Stable endotracheal tube and nasogastric tube. Body habitus limits detailed assessment. Cardiac gloria houette is prominent suggesting magnification, cardiac enlargement, and/or pericardial fluid. There is prominent pulmonary vascular congestion with interstitial and alveolar opacity in the perihilar re gions in both lung bases which may be related to edema and/or infectious pneumonitis. These findings are stable. IMPRESSION: Stable appearance of the chest as detailed above. POS: [facility]
[2018-12-21] MEDS: Famotidine/PF 20 mg/2ml Vial SLOW IVP SCH ×2 (08:39→21:21)
[2018-12-21] MEDS: Sulfameth/Trimethoprim DS 800-160mg TAB PO SCH (08:39)
[2018-12-21] MEDS: Metoprolol Tartrate 25 MG TAB PO SCH ×2 (08:39→21:21)
[2018-12-21] MEDS: Aspirin 81 mg Enteric Coated Tablet PO SCH (08:39)
[2018-12-21] MEDS: Enoxaparin Sodium 40 MG/0.4 ML SYRINGE SC SCH ×2 (08:39→21:21)
[2018-12-21] MEDS: Elviteg/Cob/Emtri/Tenof Alafen [Genvoya Tablet] 1 TAB PO SCH (11:21)
--- NOTE | 2018-12-21 15:11 | PRG ---
DATE OF SERVICE: 12/21/2018 Mr. Trejo had bronchoscopy just completed by Dr. Fisher. OBJECTIVE: VITAL SIGNS: Has temperature max 99.6, blood pressure 120/70, and pulse 98 to 109. Orotracheal intubated. Ocular movements are conjugate. LUNGS: With coarse breath sounds. ABDOMEN: With very prominent panniculus and mildly distended. GENITOURINARY: I's and O's have been negative for the past 24 hours, -1600. LABORATORY DATA: White cell count 9.7, hemoglobin 16.8, platelets 175, 78% neutrophils. Sodium 144. Creatinine 1.49. ASSESSMENT AND DISCUSSION: Longstanding human immunodeficiency virus infection, CD4 in the 180s, adequate suppression of viremia, morbid obesity with hypoventilation syndrome, respiratory failure requiring mechanical ventilation, bilateral pulmonary infiltrates either secondary to edema or an alternate process, I believe edema is more likely. Bronchoscopy specimens have been submitted for the usual workup and we will wait for the results. Job ID: [id number]
[2018-12-21 15:46] LABS: Potassium 5.7 mmol/L (3.5-5.1)
[2018-12-21] MEDS ORDERED: Dextrose 50% Abboject 50 ML SYRINGE SLOW IVP PRN (17:00)
[2018-12-21] MEDS ORDERED: Insulin Regular 300 UNITS/3 ML VIAL IVP SCH (17:00)
[2018-12-21] MEDS ORDERED: Calcium Gluc 4.6 MEQ/10 ML (100 MG/ML) SLOW IVP SCH (17:00)
[2018-12-21] MEDS: Aztreonam 2 GM in Sodium Chloride 0.9% 100 ML IVPB SCH (17:52)
--- NOTE | 2018-12-21 18:47 | PRG ---
DATE OF SERVICE: 12/21/2018 SUBJECTIVE: Mr. Trejo is clinically unchanged. He has made no improvement whatsoever. OBJECTIVE: VITAL SIGNS: Respiratory rate still in the high 20s, blood pressure 123/80, heart rate 115. LUNGS: Clear. HEART: Regular rhythm. ABDOMEN: Soft. EXTREMITIES: Without asymmetry. Trace edema. LABORATORY DATA: White count 9.7, hemoglobin 16.8, platelets 175. Sodium 144, potassium 5.4, chloride 106, bicarb 28, BUN 70, creatinine 1.49. Blood gas; pH 7.41, CO2 is 57, PO2 is 64. IMPRESSION: 1. Respiratory failure, making very little progress with weaning. 2. Adult respiratory distress syndrome. I have recommended bronchoscopy with lavage of his middle lobe today. 3. Obesity. 4. Sleep apnea. At some point, he will need a tracheostomy, but he is not stable enough for that at this time. CRITICAL CARE TIME: 30 minutes. Job ID: [id number] MTDD
[2018-12-21] MEDS: Micafungin 100 MG in Sodium Chloride 0.9% 100 ML IVPB SCH (19:45)
[2018-12-21] MEDS: Vancomycin HCl 1.25 GM in Sodium Chloride 0.9% 250 ML 250 ML IVPB SCH (21:20)
[2018-12-21] MEDS: Acetaminophen 325 MG TAB PO PRN (21:21)
[2018-12-21 22:05] LABS: Anion Gap 11 mmol/L (10-20); BUN (Urea Nitrogen) 71 mg/dL (8.9-20.6); Calc. Creatinine Clearance 199 mL/min (70-130); Calcium 9.9 mg/dL (7.8-10.44); Carbon Dioxide 36 mmol/L (22-29); Chloride 106 mmol/L (98-107); Estimated GFR-MDRD 62; Glucose 102 mg/dL (70-105); Potassium 5.5 mmol/L (3.5-5.1); Sodium 147 mmol/L (136-145)
[2018-12-22] MEDS: Propofol 1,000 MG/100 ML VIAL IV PRN ×8 (02:12→18:10)
[2018-12-22] MEDS: Aztreonam 2 GM in Sodium Chloride 0.9% 100 ML IVPB SCH ×3 (02:13→18:09)
[2018-12-22] MEDS: methylPREDNISolone Sod Succ 40 MG VIAL IVP SCH ×4 (04:07→21:41)
[2018-12-22] MEDS: Bacteriostatic Water 30 ML VIAL IVP SCH ×4 (04:08→21:42)
[2018-12-22 04:30] LABS: Anion Gap 11 mmol/L (10-20); BUN (Urea Nitrogen) 69 mg/dL (8.9-20.6); Calc. Creatinine Clearance 212 mL/min (70-130); Calcium 9.8 mg/dL (7.8-10.44); Carbon Dioxide 32 mmol/L (22-29); Chloride 107 mmol/L (98-107); Estimated GFR-MDRD 67; Glucose 100 mg/dL (70-105); Potassium 5.3 mmol/L (3.5-5.1); Sodium 145 mmol/L (136-145)
[2018-12-22 04:39] LABS: Band 2 % (5-11); Hemoglobin 16.3 g/dL (14.0-18.0); Lymphocytes 12 % (21-51); MDiff Complete? YES; Mean Corpuscular HGB CONC 29.7 g/dL (32.0-36.0); Mean Corpuscular Hemoglobin 26.7 pg (27.0-31.0); Mean Corpuscular Volume 90.1 fL (78.0-98.0); Mean Platelet Volume 10.6 fL (7.4-10.4); Monocytes 10 % (0-10); Neutrophil 76 % (42-75); Platelet Count 155 thou/uL (130-400); Red Blood Cell (RBC) Count 6.08 mill/uL (4.70-6.10)
[2018-12-22 06:56] LABS: Actual Bicarbonate (HCO3a) 35.7 mEq/L (22-28); Analyzer IN Cardio ER; Base Excess (BEa) 8.5 mEq/L (-2.0 to +3.0); CO2 Tension 57.9 mmHg (35.0-45.0); Calcium, Ionized 1.31 mmol/L (1.12-1.30); Carboxyhemoglobin (COHb) 1.1 gm% (0.0-3.0); Hemoglobin (Hb) 17.3 g/dL (14.0-18.0); O2 Tension (PaO2) 61.5 mmHg (80.0-100.0); Potassium - ABG Lab 4.97 mmol/L (3.70-5.30); pH, Arterial 7.41 (7.35-7.45)
[2018-12-22 07:23] LABS: ALV-art Gradient 293.925 (0-20); Puncture Site RRA
--- NOTE | 2018-12-22 07:24 | PDOC.FM ---
- Subjective Subjective: Patient sedated on mechanical ventilation this AM. He is s/p bronchoscopy on . Per nursing staff, patient fevered yesterday and overnight. He was restarted on antibiotics by ID. He continues to have runs of brief tachycardia that resolve after 30-60s with no intervention. - Objective MAR Reviewed: Yes Vital Signs & Weight: Vital Signs (12 hours) Temp Pulse Resp BP Pulse Ox 12/22/18 07:08 103 H 136/84 12/22/18 04:00 100.8 F H 25 H 12/22/18 02:34 109 H 12/22/18 02:33 110 H 27 H 98 12/22/18 02:00 24 H 12/22/18 00:00 100.5 F H 24 H 12/21/18 23:00 28 H 12/21/18 22:49 108 H 26 H 99 12/21/18 22:00 23 H 12/21/18 20:00 101 F H 26 H 96 Weight Admit Weight 221.625 kg Weight 206.4 kg Most Recent Monitor Data Heart Rate from ECG 106 NIBP 115/73 NIBP BP-Mean 82 Respiration from ECG 20 SpO2 96 I&O: 12/21/18 12/22/18 12/23/18 06:59 06:59 06:59 Intake Total 3577 2473 Output Total 3695 4275 Balance -118 -1802 Result Diagrams: 12/22/18 03:55 12/22/18 03:55 Phys Exam - Physical Examination Constitutional: NAD (intubated and sedated) HEENT: moist MMs Respiratory: no wheezing, no rales, no rhonchi Cardiovascular: RRR, no significant murmur Gastrointestinal: no distention, positive bowel sounds Musculoskeletal: no edema Skin: normal turgor, cap refill <2 seconds Dx/Plan (1) Acute respiratory failure with hypoxia and hypercapnia Code(s): J96.01 - ACUTE RESPIRATORY FAILURE WITH HYPOXIA; J96.02 - ACUTE RESPIRATORY FAILURE WITH HYPERCAPNIA Status: Acute Plan: S/p bronchoscopy yesterday with Dr. Fisher Still unable to wean from mechanical ventilation He needs tracheostomy placement but is not a candidate at this time ID has restarted Aztreonam, Micafungin, and Vancomycin after fevers yesterday (2) Obesity hypoventilation syndrome Code(s): E66.2 - MORBID (SEVERE) OBESITY WITH ALVEOLAR HYPOVENTILATION Status : Suspected (3) Hyperkalemia Code(s): E87.5 - HYPERKALEMIA Status: Acute Plan: -being monitored since elevated potassium yesterday -K= 5.3 today -recheck in the afternoon for close monitoring (4) HIV (human immunodeficiency virus infection) Code(s): B20 - HUMAN IMMUNODEFICIENCY VIRUS [HIV] DISEASE Status: Chronic Plan: Being managed by Dr. Chapin Continue all anti-virals (5) HFrEF (heart failure with reduced ejection fraction) Code(s): I50.20 - UNSPECIFIED SYSTOLIC (CONGESTIVE) HEART FAILURE Status: Chronic Plan: Elevated BNP on admission. 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 Code(s): A53.0 - LATENT SYPHILIS, UNSPECIFIED EARLY OR LATE Status: Chronic Plan: -s/p Pen G (7) Polycythemia secondary to hypoxia Code(s): D75.1 - SECONDARY POLYCYTHEMIA Status: Chronic (8) Morbid obesity Code(s): E66.01 - MORBID (SEVERE) OBESITY DUE TO EXCESS CALORIES Status: Chronic - Plan Plan: -continue antibiotics and steroids, being managed by Pulmonology and ID -patient still unable to wean from ventilator -hyperkalemia remains an issue but has not increased since yesterday Addendum - Attending - Attending Attestation Date/Time: 12/22/18 4606 I personally evaluated the patient and discussed the management with Dr. Bella. I agree with the History, Examination, Assessment and Plan documented above with any addition or exceptions noted below. Patient overall stable, but continues to require ventilator support. ARDS suspected due to complications related to HIV. His bronch yesterday was negative for pneumocystis organisms. Await further culture and bronchial washings pathology. He continues on broad spectrum antimicrobials per ID. He did spike fever yesterday, no identified source. If spikes >101, would recommend repeat cx. Mildly hyperkalemia, suspect medication effect? PCT obtained and result pending. Will continue to need critical care support in the coming days and support from Pulm and ID physicians.
[2018-12-22] MEDS: Enoxaparin Sodium 40 MG/0.4 ML SYRINGE SC SCH ×2 (09:31→20:41)
[2018-12-22] MEDS: Famotidine/PF 20 mg/2ml Vial SLOW IVP SCH ×2 (09:32→20:43)
[2018-12-22] MEDS: Metoprolol Tartrate 25 MG TAB PO SCH ×2 (09:33→20:42)
[2018-12-22] MEDS: Scopolamine 1.5 mg/72 hour Patch TD SCH (09:35)
[2018-12-22] MEDS: Aspirin 81 mg Enteric Coated Tablet PO SCH (09:36)
--- NOTE | 2018-12-22 09:37 | RAD ---
CHEST 1 VIEW: Date: 12/22/18 HISTORY: Respiratory insufficiency. COMPARISON: 12/21/18. FINDINGS: Large body habitus considerably lowers the sensitivity of this study. The exam is markedly underexpos ed. Endotracheal tube is in satisfactory location. There is a NG tube in place. There is cardiomegaly with bilateral vascular congestion, and interstitial and alveolar parenchymal changes, most consiste nt with that of extensive bilateral edema. IMPRESSION: Stable abnormal appearing chest with marked cardiomegaly, congestion, and bilateral alveolar and inte rstitial parenchymal changes. Tubes in place. Continue short-term follow-up. POS: [facility]
[2018-12-22] MEDS: Elviteg/Cob/Emtri/Tenof Alafen [Genvoya Tablet] 1 TAB PO SCH (09:40)
[2018-12-22] MEDS: Vancomycin HCl 1.25 GM in Sodium Chloride 0.9% 250 ML 250 ML IVPB SCH ×2 (09:47→20:41)
[2018-12-22] MEDS: Micafungin 100 MG in Sodium Chloride 0.9% 100 ML IVPB SCH (20:31)
[2018-12-22] MEDS: Acetaminophen 325 MG TAB PO PRN (20:42)
--- NOTE | 2018-12-22 22:40 | PRG ---
DATE OF SERVICE: 12/22/2018 SUBJECTIVE: Ceasar Trejo remains sedated for mechanical ventilation. He has improved very little, although we did manage to get his FiO2 down to 50%. His PEEP down to 10 today. OBJECTIVE: VITAL SIGNS: Heart rate is 110, respiratory rate in the 20s, oximetry is 90% now. Intake and outputs negative at 1124. LUNGS: Distant clear. HEART: Regular rate and rhythm. ABDOMEN: Soft. EXTREMITIES: With stasis changes. Minimal edema. DIAGNOSTIC DATA: Bronchoalveolar lavage was negative for Pneumocystis. LABORATORY DATA: White count is 11, hemoglobin is 16, and platelets 155,000. Sodium 145, potassium 5.3, chloride 107, bicarb 32, BUN 69, and creatinine 1.47. IMPRESSION: 1. Pneumonia with acute respiratory distress syndrome. Lavage was negative for Pneumocystis. 2. Human immunodeficiency virus positive. 3. Respiratory failure, not weanable. 4. Obesity. 5. Sleep apnea, suspected. He is not a candidate still at this time with this level of PEEP to go downstairs for tracheostomy. We will continue with supportive care. CRITICAL CARE TIME: 30 minutes. Job ID: [id number]
[2018-12-23] MEDS: Propofol 1,000 MG/100 ML VIAL IV PRN ×8 (00:31→22:20)
[2018-12-23] MEDS: Aztreonam 2 GM in Sodium Chloride 0.9% 100 ML IVPB SCH ×2 (02:57→08:56)
[2018-12-23] MEDS: methylPREDNISolone Sod Succ 40 MG VIAL IVP SCH ×4 (04:45→21:47)
[2018-12-23] MEDS: Bacteriostatic Water 30 ML VIAL IVP SCH ×4 (04:48→22:19)
[2018-12-23 05:26] LABS: Band 5 % (5-11); Hemoglobin 16.5 g/dL (14.0-18.0); Large Platelets SLIGHT; Lymphocytes 9 % (21-51); MDiff Complete? YES; Mean Corpuscular HGB CONC 29.5 g/dL (32.0-36.0); Mean Corpuscular Hemoglobin 26.7 pg (27.0-31.0); Mean Corpuscular Volume 90.5 fL (78.0-98.0); Monocytes 9 % (0-10); Neutrophil 76 % (42-75); Platelet Count 144 thou/uL (130-400); Platelet Morphology Comment Appears Adequate; RBC Distribution Width 16.5 % (11.5-14.5); Reactive Lymphocytes 1 % (0-10); Red Blood Cell (RBC) Count 6.17 mill/uL (4.70-6.10); White Blood Cell (WBC) Count 12.7 thou/uL (4.8-10.8)
[2018-12-23 05:29] LABS: Anion Gap 11 mmol/L (10-20); BUN (Urea Nitrogen) 64 mg/dL (8.9-20.6); Calc. Creatinine Clearance 228 mL/min (70-130); Calcium 9.7 mg/dL (7.8-10.44); Carbon Dioxide 31 mmol/L (22-29); Chloride 110 mmol/L (98-107); Estimated GFR-MDRD 74; Glucose 108 mg/dL (70-105); Potassium 5.2 mmol/L (3.5-5.1); Sodium 147 mmol/L (136-145)
[2018-12-23 06:59] LABS: Actual Bicarbonate (HCO3a) 34.6 mEq/L (22-28); Analyzer IN Cardio ER; Base Excess (BEa) 7.8 mEq/L (-2.0 to +3.0); CO2 Tension 55.1 mmHg (35.0-45.0); Calcium, Ionized 1.26 mmol/L (1.12-1.30); Carboxyhemoglobin (COHb) 1.5 gm% (0.0-3.0); Hemoglobin (Hb) 17.4 g/dL (14.0-18.0); Potassium - ABG Lab 5.26 mmol/L (3.70-5.30); pH, Arterial 7.42 (7.35-7.45)
[2018-12-23 07:00] LABS: O2 Tension (PaO2) 52.5 mmHg (80.0-100.0)
[2018-12-23 07:01] LABS: Puncture Site RRA
[2018-12-23 07:02] LABS: ALV-art Gradient 235.125 (0-20)
--- NOTE | 2018-12-23 07:44 | PDOC.FM ---
- Subjective Subjective: Patient is intubated and sedated this morning. Per nursing, he had multiple runs of SVT overnight, the longest lasting 10 minutes. His blood pressures remained stable during these episodes. Patient was also febrile to 100.8F yesterday evening. - Objective MAR Reviewed: Yes Vital Signs & Weight: Vital Signs (12 hours) Temp Pulse Resp BP Pulse Ox 12/23/18 07:32 112 H 127/84 12/23/18 06:00 27 H 12/23/18 04:55 112 H 12/23/18 04:00 23 H 12/23/18 03:00 99.7 F H 12/23/18 02:07 112 H 43 H 94 L 12/23/18 02:00 24 H 12/23/18 00:00 100.2 F H 22 H 12/22/18 22:32 108 H 29 H 92 L 12/22/18 22:00 21 H 12/22/18 20:00 23 H 94 L Weight Admit Weight 221.625 kg Weight 204.1 kg Most Recent Monitor Data Heart Rate from ECG 115 NIBP 133/80 NIBP BP-Mean 91 Respiration from ECG 33 SpO2 95 I&O: 12/22/18 12/23/18 12/24/18 06:59 06:59 06:59 Intake Total 3151 2900 Output Total 4275 3415 Balance -1124 -515 Result Diagrams: 12/23/18 04:59 12/23/18 04:59 Phys Exam - Physical Examination Constitutional: NAD (intubated and sedated) HEENT: moist MMs Respiratory: no wheezing, no rales, no rhonchi Cardiovascular: RRR, no significant murmur Gastrointestinal: no distention, positive bowel sounds Musculoskeletal: no edema Skin: normal turgor, cap refill <2 seconds Dx/Plan (1) Acute respiratory failure with hypoxia and hypercapnia Code(s): J96.01 - ACUTE RESPIRATORY FAILURE WITH HYPOXIA; J96.02 - ACUTE RESPIRATORY FAILURE WITH HYPERCAPNIA Status: Acute Plan: S/p bronchoscopy on 12/[address] Fisher -cultures and AFB studies negative to date Will continue to try and wean from mechanical ventilation -FiO2 of 50% and PEEP of 10 cmH2O He needs tracheostomy placement but is not a candidate at this time ID has restarted Aztreonam, Micafungin, and Vancomycin after fevers yesterday -plan to f/u cultures once finalized -procal of .18 (2) Obesity hypoventilation syndrome Code(s): E66.2 - MORBID (SEVERE) OBESITY WITH ALVEOLAR HYPOVENTILATION Status : Suspected (3) Hyperkalemia Code(s): E87.5 - HYPERKALEMIA Status: Acute Plan: Continue to monitor K= 5.2 today Suspect this is likely due to his Trimethoprim (4) HIV (human immunodeficiency virus infection) Code(s): B20 - HUMAN IMMUNODEFICIENCY VIRUS [HIV] DISEASE Status: Chronic Plan: Being managed by Dr. Chapin Continue all anti-virals (5) HFrEF (heart failure with reduced ejection fraction) Code(s): I50.20 - UNSPECIFIED SYSTOLIC (CONGESTIVE) HEART FAILURE Status: Chronic Plan: Elevated BNP on admission. 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 Code(s): A53.0 - LATENT SYPHILIS, UNSPECIFIED EARLY OR LATE Status: Chronic Plan: -s/p Pen G (7) Polycythemia secondary to hypoxia Code(s): D75.1 - SECONDARY POLYCYTHEMIA Status: Chronic (8) Morbid obesity Code(s): E66.01 - MORBID (SEVERE) OBESITY DUE TO EXCESS CALORIES Status: Chronic - Plan Plan: Patient with ARDS who is still not a candidate for treacheostomy. Will continue to wean the vent, per Pulm. Continue aztreonam, micafungin, and vancomycin. Cultures pending Will increase free water in response to her increased sodium Will increase metoprolol given runs of SVT Addendum - Attending - Attending Attestation Date/Time: 12/23/18 1714 I personally evaluated the patient and discussed the management with Dr. Bella. I agree with the History, Examination, Assessment and Plan documented above with any addition or exceptions noted below. Patient continues to be critically ill but stable. He has been having some runs of SVT over the last few nights associated with desaturations. Will increase his Metoprolol and see if we can control that. Continues to have low grade fevers but negative cultures, continues on broad spectrum abx. ? Immune reconstitution from change in his HAART medications though I know he did not have severe immune suppression to begin with. ID on board. Vent mgmt per Pulm for this ARDS, FiO2 turned down somewhat. Renal function stable. Mild hypernatremia so will have free water flushes increased with his tube feeds. UOP ok.
[2018-12-23] MEDS: Enoxaparin Sodium 40 MG/0.4 ML SYRINGE SC SCH ×2 (08:33→20:19)
[2018-12-23] MEDS: Metoprolol Tartrate 25 MG TAB PO SCH ×3 (08:34→20:20)
[2018-12-23] MEDS: Aspirin 81 mg Enteric Coated Tablet PO SCH (08:34)
[2018-12-23] MEDS: Famotidine/PF 20 mg/2ml Vial SLOW IVP SCH ×2 (08:35→20:20)
[2018-12-23] MEDS: Elviteg/Cob/Emtri/Tenof Alafen [Genvoya Tablet] 1 TAB PO SCH (08:39)
[2018-12-23] MEDS: Vancomycin HCl 1.25 GM in Sodium Chloride 0.9% 250 ML 250 ML IVPB SCH ×2 (08:42→20:19)
[2018-12-23 08:46] LABS: Vancomycin, Trough 15.4 ug/mL
--- NOTE | 2018-12-23 09:24 | RAD ---
CHEST 1 VIEW: Date: 12/23/18 HISTORY: Respiratory insufficiency. COMPARISON: 12/22/18. FINDINGS: Worsening bilateral alveolar and interstitial parenchymal changes throughout both lungs, becoming mor e dense bilaterally than on the prior study. Life support tubes remain in place and stable. Cardiomeg gato. IMPRESSION: Worsening bilateral alveolar and interstitial opacities throughout both lungs. Stable cardiomegaly. C ontinue short-term follow-up. POS: [facility]
[2018-12-23] MEDS ORDERED: AMIKACIN SULFATE IVPB SCH (15:15)
--- NOTE | 2018-12-23 15:29 | PRG ---
DATE OF SERVICE: 12/23/2018 SUBJECTIVE: Ceasar Trejo is really not improved at all. OBJECTIVE: VITAL SIGNS: His intake and output, negative 515. Respiratory rates in the low 30s, blood pressure 135/92, heart rate is 114, oximetry is 95%. LUNGS: Distant, clear. HEART: Regular rhythm. S1 and S2 are distant. ABDOMEN: Soft and nontender. EXTREMITIES: Without asymmetry. He has stasis changes and still has some edema. LABORATORY DATA: White count is 12.7, hemoglobin 16.5, platelets 144. Sodium 147, potassium 5.2, chloride 110, bicarb 31, BUN 64, creatinine 1.36. A pH 7.42, CO2 of 55, pO2 of 52. Chest radiograph is essentially unchanged. He still has diffuse infiltrates. IMPRESSION: 1. Adult respiratory distress syndrome, not improving quickly. 2. Xmthd-xg-spezpct respiratory failure. He is still unstable for a tracheostomy at this point in time from a gas exchange standpoint. 3. Status post bronchoalveolar lavage showing no Pneumocystis. No other pathogens have been reported so far. Cultures of his lavage fluid showed no bacterial pathogens. 4. Obesity. 5. Human immunodeficiency virus positive, on immunosuppressive therapy and Bactrim prophylaxis. 6. Sleep apnea suspect. PLAN: We will continue his current supportive care, currently not weanable. CRITICAL CARE TIME: 30 minutes. Job ID: [id number]
--- NOTE | 2018-12-23 16:05 | PRG ---
DATE OF SERVICE: 12/23/2018 SUBJECTIVE: Mr. Trejo has continued to present with fever. He has not had diarrhea. He is sedated; at this point in time, his FiO2 was brought down to 50. OBJECTIVE: VITAL SIGNS: His T-max was 101.2 just recently, blood pressure 160/ 88, and pulse 108. HEENT: He is orotracheally intubated. Pupils are miotic from sedation. LUNGS: With coarse breath sounds. HEART: Decreased S1S2, S4,no obvious murmurs. ABDOMEN: Difficult to examine because of prominence of the panniculus. Camargo catheter is in place. The I's and O's have been negative. SKIN: No obvious skin lesions were noted. He has [address] No central wounds. LABORATORY DATA: White cell count is up to 12.7, hemoglobin 16.5, and platelets 144 with 76% neutrophils, 9% lymphocytes, 5% bands. Sodium 147, creatinine 1.36. Pneumocystis stain was negative. Microbiology with negative blood cultures from December 21. Urine culture, no growth at 12 hours as well. The acid-fast and bronchoalveolar lavage were negative. He is currently on Azactam, vancomycin, and anti-retroviral therapy. He is on Bactrim prophylaxis. Chest x-ray with worsening bilateral alveolar interstitial parenchymal changes throughout both lungs. Stable cardiomegaly. He is on Lovenox, DVT prophylaxis. ASSESSMENT AND DISCUSSION: Longstanding human immunodeficiency virus infection , CD4 in the 180s with suppression of viremia. Morbid obesity with hypoventilation syndrome. Respiratory failure. Bilateral pulmonary Infiltrates. Negative bronchoalveolar lavage for Pneumocystis. Negative blood cultures thus far. Possible hospital-acquired pneumonia, ventilatory associated, fungemia, bacteremia. Intra abdominal inflammatory process such as acalculous cholecystitis not ruled out. We will resume micafungin, transition from aztreonam to combination of Zosyn and amikacin in replacement for Azactam. Job ID: [id number] [facility]
[2018-12-23] MEDS: Micafungin 100 MG in Sodium Chloride 0.9% 100 ML IVPB SCH (16:18)
[2018-12-23] MEDS: SODIUM CHLORIDE 0.9% IVPB SCH (16:46)
[2018-12-23] MEDS: AMIKACIN SULFATE IVPB SCH (16:46)
[2018-12-23] MEDS: Piperacillin/Tazobactam 4.5 GM in Sodium Chloride 0.9% 100 ML IVPB SCH ×2 (17:31→23:57)
[2018-12-23] MEDS: Acetaminophen 325 MG TAB PO PRN (19:56)
[2018-12-24] MEDS: Acetaminophen 325 MG TAB PO PRN (02:34)
[2018-12-24] MEDS: Propofol 1,000 MG/100 ML VIAL IV PRN ×9 (02:37→23:42)
[2018-12-24] MEDS: methylPREDNISolone Sod Succ 40 MG VIAL IVP SCH ×4 (04:01→21:46)
[2018-12-24] MEDS: Bacteriostatic Water 30 ML VIAL IVP SCH ×4 (04:02→22:00)
[2018-12-24 05:10] VITALS: BMI 51.7
[2018-12-24 05:37] LABS: Anion Gap 15 mmol/L (10-20); BUN (Urea Nitrogen) 69 mg/dL (8.9-20.6); Calc. Creatinine Clearance 173 mL/min (70-130); Calcium 9.6 mg/dL (7.8-10.44); Carbon Dioxide 30 mmol/L (22-29); Chloride 108 mmol/L (98-107); Estimated GFR-MDRD 55; Glucose 107 mg/dL (70-105); Potassium 5.1 mmol/L (3.5-5.1); Sodium 148 mmol/L (136-145)
[2018-12-24 05:45] LABS: Band 2 % (5-11); Hemoglobin 16.7 g/dL (14.0-18.0); Lymphocytes 10 % (21-51); MDiff Complete? YES; Mean Corpuscular HGB CONC 30.1 g/dL (32.0-36.0); Mean Corpuscular Hemoglobin 27.3 pg (27.0-31.0); Mean Corpuscular Volume 90.8 fL (78.0-98.0); Mean Platelet Volume 11.9 fL (7.4-10.4); Monocytes 10 % (0-10); Neutrophil 78 % (42-75); Platelet Count 141 thou/uL (130-400); RBC Distribution Width 16.6 % (11.5-14.5); Red Blood Cell (RBC) Count 6.11 mill/uL (4.70-6.10); White Blood Cell (WBC) Count 11.4 thou/uL (4.8-10.8)
--- NOTE | 2018-12-24 05:58 | PDOC.FM ---
- Subjective Subjective: 33 yo male seen at bedside this AM. Patient is intubated and sedated. Per nursing staff, patient has been unchanged except his HR has now been around 150 since moving him in bed. Nursing staff is inquiring about possibility of changing sedation as well. No other history is able to be obtained. - Objective Vital Signs & Weight: Vital Signs (12 hours) Temp Pulse Resp Pulse Ox 12/24/18 04:00 101.5 F H 37 H 12/24/18 02:19 122 H 12/24/18 02:18 154 H 36 H 91 L 12/24/18 02:00 102.4 F H 34 H 12/24/18 00:00 36 H 12/23/18 22:13 117 H 38 H 90 L 12/23/18 22:00 102.7 F H 36 H 12/23/18 20:00 34 H 12/23/18 19:05 92 L 12/23/18 19:00 103.1 F H 12/23/18 18:47 119 H 37 H 92 L 12/23/18 18:00 32 H Weight Admit Weight 221.625 kg Weight 203.164 kg Most Recent Monitor Data Heart Rate from ECG 126 NIBP 113/73 NIBP BP-Mean 89 Respiration from ECG 38 SpO2 86 I&O: 12/22/18 12/23/18 12/24/18 06:59 06:59 06:59 Intake Total 3151 2900 2264 Output Total 4275 3415 3560 Balance -1124 -515 -1296 Result Diagrams: 12/24/18 04:51 12/24/18 04:51 Phys Exam - Physical Examination intubated and sedated ET in place Respiratory: no wheezing, clear to auscultation bilateral Cardiovascular: no significant murmur Tachycardia Gastrointestinal: soft, non-tender, no distention, positive bowel sounds Musculoskeletal: no edema, pulses present intubated and sedated Deviation from normal: intubated and sedated. Dx/Plan (1) Acute respiratory distress syndrome (ARDS) Code(s): J80 - ACUTE RESPIRATORY DISTRESS SYNDROME Status: Acute (2) Obesity hypoventilation syndrome Code(s): E66.2 - MORBID (SEVERE) OBESITY WITH ALVEOLAR HYPOVENTILATION Status : Suspected (3) HIV (human immunodeficiency virus infection) Code(s): B20 - HUMAN IMMUNODEFICIENCY VIRUS [HIV] DISEASE Status: Chronic (4) Acute kidney injury superimposed on CKD Code(s): N17.9 - ACUTE KIDNEY FAILURE, UNSPECIFIED; N18.9 - CHRONIC KIDNEY DISEASE, UNSPECIFIED Status: Acute (5) Thrombocytopenia Code(s): D69.6 - THROMBOCYTOPENIA, UNSPECIFIED Status: Acute (6) HFrEF (heart failure with reduced ejection fraction) Code(s): I50.20 - UNSPECIFIED SYSTOLIC (CONGESTIVE) HEART FAILURE Status: Chronic (7) Tachycardia Code(s): R00.0 - TACHYCARDIA, UNSPECIFIED Status: Acute (8) 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 Fisher - cultures and AFB studies negative to date - Will continue to try and wean from mechanical ventilation - Needs tracheostomy placement but is not a candidate at this time - ID has restarted Aztreonam, Micafungin, and Vancomycin after recent fevers and has continued to have fevers Obesity hypoventilation syndrome - Same as above Hyperkalemia - Continue to monitor - K= 5.1 today - Suspect this is likely due to his Trimethoprim DANIEL - 1.76 this AM - Continue to monitor - Likely due to aggressive diuresis HIV (human immunodeficiency virus infection) - Being managed by Dr. Chapin - Continue all anti-virals HFrEF (heart failure with reduced ejection fraction) - Elevated BNP on admission. -Continue strict I/Os, daily weights - Does not appear fluid overloaded - Significant diuresis during hospital stay. Latent syphilis in male -s/p Pen G Polycythemia secondary to hypoxia Morbid obesity SVT - Increase Metoprolol - PRN labetalol as well Hypernatremia - Increase free water feedings - Monitor Disposition: Guarded, will continue current plan of care. Addendum - Attending - Attending Attestation Date/Time: 12/24/18 1043 I personally evaluated the patient and discussed the management with Dr. Crain I agree with the History, Examination, Assessment and Plan documented above with any addition or exceptions noted below. ARDS- vent per pulm. O2 sats 88-90% on vent and RR in 30-40s. Obesity Hypoventilation Syndrome/Sleep Apnea- will most likely need a trach long -term. HIV- viral load was undetectable and CD4 >250- however he continues to fever. Antibiotics and antifungals per ID. SVT overnight- sinus tachycardia now (rate 120s). On beta radha. Exacerbated by fever.
[2018-12-24] MEDS: Piperacillin/Tazobactam 4.5 GM in Sodium Chloride 0.9% 100 ML IVPB SCH ×4 (06:42→23:42)
[2018-12-24 07:16] LABS: Actual Bicarbonate (HCO3a) 30.3 mEq/L (22-28); Analyzer IN Cardio OR; Base Excess (BEa) 5.8 mEq/L (-2.0 to +3.0); CO2 Tension 43.1 mmHg (35.0-45.0); Calcium, Ionized 1.25 mmol/L (1.12-1.30); Carboxyhemoglobin (COHb) 1.5 gm% (0.0-3.0); Hemoglobin (Hb) 17.7 g/dL (14.0-18.0); Potassium - ABG Lab 5.11 mmol/L (3.70-5.30); pH, Arterial 7.47 (7.35-7.45)
[2018-12-24 07:18] LABS: ALV-art Gradient 252.025 (0-20); O2 Tension (PaO2) 50.6 mmHg (80.0-100.0); Puncture Site LRA
--- NOTE | 2018-12-24 08:13 | RAD ---
PORTABLE CHEST: HISTORY: CCU followup. Patient on ventilator. COMPARISON: 12/23/2018 FINDINGS: ET tube and NG tube in place. Cardiomegaly with vascular congestion. Bilateral lung alveolar infilt rates are again seen. The exam is overall suboptimal, due to poor exposure; however, the chest does not appear significantly changed from yesterday. POS: [facility]
[2018-12-24] MEDS: Sulfameth/Trimethoprim DS 800-160mg TAB PO SCH (08:25)
[2018-12-24] MEDS: Aspirin 81 mg Enteric Coated Tablet PO SCH (08:25)
[2018-12-24] MEDS: Metoprolol Tartrate 25 MG TAB PO SCH ×2 (08:26→20:22)
[2018-12-24] MEDS: Enoxaparin Sodium 40 MG/0.4 ML SYRINGE SC SCH ×2 (08:27→20:21)
[2018-12-24] MEDS: Famotidine/PF 20 mg/2ml Vial SLOW IVP SCH ×2 (08:27→20:21)
--- NOTE | 2018-12-24 08:27 | OP ---
DATE OF PROCEDURE: 12/21/2018 PROCEDURE PERFORMED: Bronchoscopy with lavage. DESCRIPTION OF PROCEDURE: The patient was already sedated for mechanical ventilation. The endotracheal tube had a swivel adapter attached. Bronchoscope was introduced, passed down to the main ismael, which appeared sharp. Right lower lobe, right middle lobe, right upper lobe, left lower lobe, and left upper lobe were visualized. No endobronchial lesions were seen. The scope was wedged in the right middle lobe. 60 mL of saline lavage with approximately 15 mL of turbid foamy return was obtained. Procedure was tolerated well. Specimen was sent for the appropriate studies. Job ID: [id number]
[2018-12-24] MEDS: Elviteg/Cob/Emtri/Tenof Alafen [Genvoya Tablet] 1 TAB PO SCH (08:30)
[2018-12-24] MEDS: Vancomycin HCl 1.25 GM in Sodium Chloride 0.9% 250 ML 250 ML IVPB SCH ×2 (08:33→20:21)
[2018-12-24 11:24] LABS: ALT (SGPT) 71 U/L (8-55); AST (SGOT) 121 U/L (5-34); Albumin 2.8 g/dL (3.5-5.0); Alkaline Phosphatase 99 U/L (40-150); Bilirubin, Direct 2.2 mg/dL (0.1-0.3); Bilirubin, Total 3.1 mg/dL (0.2-1.2); Protein, Total 7.1 g/dL (6.0-8.3)
--- NOTE | 2018-12-24 11:50 | PRG ---
DATE OF SERVICE: 12/24/2018 SUBJECTIVE: Still in the ICU, intubated, sedated. No diarrhea. OBJECTIVE: VITAL SIGNS: T-max 103, now is 102.8; pulse 128; respiratory rate 39; O2 saturation 91%, 82% with normal position. LUNGS: Coarse breath sounds, right and left hemithorax. HEART: Diminished heart sounds. ABDOMEN: Not displaying any evidence of guarding. No rigidity. Bowel sounds are diminished. : Camargo catheter in place. I's and O's have been negative. Indwelling Camargo catheter. He has bilateral midline catheters, right and left upper extremities. NEUROLOGIC: Could not test motor function. LABORATORY DATA: White cell count 11.4, hemoglobin 16.7, platelets 141, 78% neutrophils, 2% bands, 10% lymphocytes. Chemistry with sodium 148, potassium 5.1, creatinine has raised from 1.36 to 1.76. The last AST is from quite a few days ago and needs to be repeated. Procalcitonin 0.18. Microbiology with negative blood cultures from December 21. Repeat chest x-ray with diffuse bilateral pulmonary infiltrates. He is currently on inhalers, amikacin, lipase, protease, amylase, aspirin Lovenox, Intel[facility], lamivudine, methylprednisolone 20 mg q.6, micafungin , ondansetron, Zosyn, propofol, and vancomycin. Pathology showed macrophages, lymphocytes, and neutrophils. GMS stain negative for Pneumocystis. ASSESSMENT: 1. Longstanding human immunodeficiency virus infection, CD4 in the upper 100s, around 180 when last checked. Viral load was suppressed. 2. Morbid obesity with hypoventilation syndrome, respiratory failure, bilateral diffuse pulmonary infiltrates felt to be due to edema, possible superimposed ventilator associated pneumonia, persistence of fever, which has developed over the past few days. DISCUSSION: The possibility of cytomegalovirus opportunistic infection or other fungal opportunistic infection will have to be revisited with assays for CMV DNA PCR and cryptococcus antigen, histoplasma antigen. It is more likely that this reflects the inflammatory process in the lungs with possible associated ventilator related pneumonia. An alternate possibility would be hyperthermia without infection due to tissue necrosis/inflammatory non infectious causes, drug related fever, [employer] event and so on. Unfortunately we cannot carry out imaging studies in view of his weight. The antimicrobial regimen has been broadened again. We will order an ultrasound of his gallbladder since we cannot do imaging studies otherwise such as CT scans of the abdomen and pelvis. Job ID: [id number] [facility]
[2018-12-24] MEDS: Lactated Ringer's 1,000 ML IV SCH (13:48)
[2018-12-24] MEDS: Micafungin 100 MG in Sodium Chloride 0.9% 100 ML IVPB SCH (15:31)
--- NOTE | 2018-12-24 15:45 | ULT ---
RIGHT UPPER QUADRANT ULTRASOUND: Date: 12/24/18 HISTORY: Right upper quadrant pain. FINDINGS: The exam is limited due to patient's body habitus. The visualized portions of the liver demonstrate no evidence of focal mass or intrahepatic ductal dil atation. No gallstones or pericholecystic fluid seen. The gallbladder wall measures about 4.0 mm in t hickness. The pancreas is not well visualized due to overlying bowel gas. The right kidney is unremar kable. No free fluid is seen in Morison's pouch. The common duct measures 5.0 mm in diameter. IMPRESSION: 1. Limited exam. No evidence of cholelithiasis. 2. Mild gallbladder wall thickening. POS: [facility]
[2018-12-24 16:22] VITALS: TEMP 102.3
[2018-12-24] MEDS: AMIKACIN SULFATE IVPB SCH (16:35)
[2018-12-24] MEDS: SODIUM CHLORIDE 0.9% IVPB SCH (16:35)
[2018-12-24] MEDS: Ibuprofen 200 MG TAB PER TUBE SCH (20:23)
[2018-12-24] MEDS: Acetaminophen 325 MG TAB PER TUBE PRN (22:33)
[2018-12-24] MEDS ORDERED: Lorazepam 2 MG/ML VIAL SLOW IVP PRN (23:01)
[2018-12-25] MEDS: Ibuprofen 200 MG TAB PER TUBE SCH ×3 (01:14→08:45)
[2018-12-25] MEDS: Acetaminophen 325 MG TAB PER TUBE PRN (02:40)
[2018-12-25] MEDS: methylPREDNISolone Sod Succ 40 MG VIAL IVP SCH (04:25)
[2018-12-25] MEDS: Propofol 1,000 MG/100 ML VIAL IV PRN ×2 (04:27→07:20)
[2018-12-25] MEDS: Bacteriostatic Water 30 ML VIAL IVP SCH (04:59)
[2018-12-25] MEDS: Piperacillin/Tazobactam 4.5 GM in Sodium Chloride 0.9% 100 ML IVPB SCH (05:04)
--- NOTE | 2018-12-25 05:59 | PDOC.FM ---
- Subjective Subjective: 33 yo male remains intubated and sedated. Per Nursing Staff, patient had sustained fevers to 105-106 overnight despite use of cooling blanket and other supportive measures. Patient only has gag reflex at this time. Family was notified and plan for family meeting here this AM. No other history obtained at this time. - Objective Vital Signs & Weight: Vital Signs (12 hours) Pulse Resp BP Pulse Ox 12/25/18 04:00 33 H 12/25/18 02:49 122 H 93/49 L 12/25/18 02:00 32 H 12/25/18 00:00 34 H 12/24/18 23:00 33 H 12/24/18 22:00 37 H 12/24/18 21:56 124 H 107/58 L 12/24/18 20:00 32 H 12/24/18 19:10 89 L 12/24/18 18:54 126 H 118/65 12/24/18 18:00 35 H Weight Admit Weight 221.625 kg Weight 202.892 kg Most Recent Monitor Data Heart Rate from ECG 125 NIBP 90/50 NIBP BP-Mean 71 Respiration from ECG 46 SpO2 89 I&O: 12/23/18 12/24/18 12/25/18 06:59 06:59 06:59 Intake Total 2900 3151 1836 Output Total 3415 3685 2445 Balance -152 -534 -609 Result Diagrams: 12/25/18 05:44 12/25/18 05:44 Phys Exam - Physical Examination intubated and sedated ET in place Respiratory: no wheezing, clear to auscultation bilateral Cardiovascular: no significant murmur tachycardic Gastrointestinal: soft, non-tender, no distention, positive bowel sounds Musculoskeletal: no edema, pulses present intubated and sedated Skin: no rash Dx/Plan (1) Fever 106 degrees F or over Code(s): R50.9 - FEVER, UNSPECIFIED Status: Acute (2) Acute respiratory distress syndrome (ARDS) Code(s): J80 - ACUTE RESPIRATORY DISTRESS SYNDROME Status: Acute (3) Obesity hypoventilation syndrome Code(s): E66.2 - MORBID (SEVERE) OBESITY WITH ALVEOLAR HYPOVENTILATION Status : Suspected (4) HIV (human immunodeficiency virus infection) Code(s): B20 - HUMAN IMMUNODEFICIENCY VIRUS [HIV] DISEASE Status: Chronic (5) Acute kidney injury superimposed on CKD Code(s): N17.9 - ACUTE KIDNEY FAILURE, UNSPECIFIED; N18.9 - CHRONIC KIDNEY DISEASE, UNSPECIFIED Status: Acute (6) Thrombocytopenia Code(s): D69.6 - THROMBOCYTOPENIA, UNSPECIFIED Status: Acute (7) HFrEF (heart failure with reduced ejection fraction) Code(s): I50.20 - UNSPECIFIED SYSTOLIC (CONGESTIVE) HEART FAILURE Status: Chronic (8) Tachycardia Code(s): R00.0 - TACHYCARDIA, UNSPECIFIED Status: Acute (9) 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 - Supportive measures - No identifiable source of infection, but labs pending - Will discuss end of life care and treatment goals with family today ARDS - S/p bronchoscopy on 12/[address] Fisher - cultures and AFB studies negative to date - Will continue to try and wean from mechanical ventilation - Needs tracheostomy placement but is not a candidate at this time - ID has restarted Aztreonam, Micafungin, and Vancomycin Obesity hypoventilation syndrome - Same as above Hyperkalemia - Continue to monitor - K= 5.3 today - Suspect this is likely due to his Trimethoprim DANIEL - 2.87 this AM - Continue to monitor - Likely due to above and diuresis HIV (human immunodeficiency virus infection) - Being managed by Dr. Chapin - Continue all anti-virals HFrEF (heart failure with reduced ejection fraction) - Elevated BNP on admission. -Continue strict I/Os, daily weights - Does not appear fluid overloaded - Significant diuresis during hospital stay. Latent syphilis in male -s/p Pen G Polycythemia secondary to hypoxia Morbid obesity SVT - Increase Metoprolol - PRN labetalol as well Hypernatremia - Increase free water feedings - Monitor Disposition: Poor, will continue current plan of care. Addendum - Attending - Attending Attestation Date/Time: 12/25/18 1116 I personally evaluated the patient and discussed the management with Dr. Crain at 0945 this am. I agree with the History, Examination, Assessment and Plan documented above with any addition or exceptions noted below. Acute respiratory failure secondary to ARDS- requiring significant ventilatory support and remains tachypneic at 30+ times per minute. Appreciate pulm/ critical care recs. Fever- persistent 106 fever despite significant antimicrobial coverage. Appreciate ID recs. RUQ u/s shows mild gallbladder wall thickening and bilirubin elevated. No obvious other source identified. Unable to get CT scan secondary to body habitus. Will discuss with IR and possibly surgery. [facility] HIV Acute renal insufficiency- give 1L NS. Good urine output Patient has an extremely poor prognosis. Patient's sister notified by Dr. Crain and she plans to be to the hospital around 2 pm.
[2018-12-25 06:19] LABS: Anion Gap 15 mmol/L (10-20); BUN (Urea Nitrogen) 107 mg/dL (8.9-20.6); Calc. Creatinine Clearance 106 mL/min (70-130); Calcium 8.8 mg/dL (7.8-10.44); Carbon Dioxide 27 mmol/L (22-29); Chloride 110 mmol/L (98-107); Estimated GFR-MDRD 31; Glucose 129 mg/dL (70-105); Potassium 5.3 mmol/L (3.5-5.1); Sodium 147 mmol/L (136-145)
[2018-12-25 06:48] LABS: Anisocytosis SLIGHT = 6-15 cells (100X) (0-5/hpf); Band 5 % (5-11); Lymphocytes 23 % (21-51); MDiff Complete? YES; Mean Corpuscular HGB CONC 29.5 g/dL (32.0-36.0); Mean Corpuscular Hemoglobin 26.7 pg (27.0-31.0); Mean Corpuscular Volume 90.6 fL (78.0-98.0); Mean Platelet Volume 13.5 fL (7.4-10.4); Monocytes 14 % (0-10); Neutrophil 58 % (42-75); Nucleated RBC 3 % (0); Platelet Count 90 thou/uL (130-400); Platelet Morphology Comment Appears Decreased; RBC Distribution Width 16.7 % (11.5-14.5); Red Blood Cell (RBC) Count 6.36 mill/uL (4.70-6.10); White Blood Cell (WBC) Count 4.7 thou/uL (4.8-10.8)
[2018-12-25 07:26] LABS: Actual Bicarbonate (HCO3a) 24.8 mEq/L (22-28); Analyzer IN Cardio OR; Base Excess (BEa) 0.3 mEq/L (-2.0 to +3.0); Calcium, Ionized 1.19 mmol/L (1.12-1.30); Carboxyhemoglobin (COHb) 1.6 gm% (0.0-3.0); Hemoglobin (Hb) 17.8 g/dL (14.0-18.0); pH, Arterial 7.41 (7.35-7.45)
--- NOTE | 2018-12-25 08:20 | RAD ---
AP VIEW CHEST: 12/25/2018 HISTORY: Ventilator dependent patient. COMPARISON: 12/24/2018 TECHNIQUE: Two AP views of the chest are obtained. FINDINGS: AP view chest demonstrates nasogastric and endotracheal tubes to be in place. There is extensive pul monary vascular congestion. Cardiomegaly is seen. Extensive air space opacity is seen, compatible w ith pulmonary edema or pneumonia. The radiographic appearance of the chest is stable. No significan t interval change is seen. POS: [facility]
[2018-12-25] MEDS: Scopolamine 1.5 mg/72 hour Patch TD SCH (08:28)
[2018-12-25] MEDS: Enoxaparin Sodium 40 MG/0.4 ML SYRINGE SC SCH (08:45)
[2018-12-25] MEDS: Aspirin 81 mg Enteric Coated Tablet PO SCH (08:46)
[2018-12-25] MEDS: Metoprolol Tartrate 25 MG TAB PO SCH (08:46)
[2018-12-25] MEDS: Famotidine/PF 20 mg/2ml Vial SLOW IVP SCH (08:47)
[2018-12-25] MEDS ORDERED: Dextrose 5% in Water 1,000 ML IV SCH (09:15)
--- NOTE | 2018-12-25 09:54 | PRG ---
DATE OF SERVICE: 12/24/2018 SERVICE: Pulmonary Medicine. INTERVAL HISTORY: The patient is doing poorly from respiratory standpoint. Oxygen requirements remained quite elevated and are getting worse. He is tachypneic, and has an increased work of breathing. space ventilation is getting much worse. He cannot provide any additional elements of the history. He is going in and out of a tachyarrhythmia. This requires intermittent doses of labetalol, which hold him for period of time, but then he reverts back into the tachyarrhythmia. Otherwise, there have been no events. PHYSICAL EXAMINATION: VITAL SIGNS: Afebrile, pulse 126, blood pressure 118/65, respirations 35, and saturation 89% on 60% FiO2 and a PEEP of 10. HEENT: Normocephalic and atraumatic. Sclerae white. Conjunctivae pink. Oral mucosa is moist without lesions. LUNGS: Rhonchi are present. There is no prolonged expiratory phase or wheezing appreciated. HEART: Normal rate and regular. ABDOMEN: Soft, nontender, and nondistended. Bowel sounds are positive. MUSCULOSKELETAL: No cyanosis or clubbing. There is no pitting in the bilateral lower extremities. NEUROLOGIC: Grossly nonfocal. Diffuse encephalopathy. LABORATORY DATA: WBC 11.4, hemoglobin 16.7, platelets 141,000. Neutrophil count is 78% on top of 2 bands. A pH 7.47, pCO2 of 43, and pO2 of 52 on 50% FiO2 and a PEEP of 10 at that time. Creatinine 1.76 and up trending, BUN 69. Basic metabolic profile is otherwise unremarkable. Sodium 148 and up trending. AST and ALT are up trending. Total bilirubin 3.1, direct bilirubin 2.2. Alkaline phosphatase falls within the normal limits. Vancomycin trough is 15.4. Blood cultures x4, recent urine culture are unremarkable. Bronchoalveolar lavage from the 15th was unremarkable. Initial respiratory culture had Kirstie albicans. Stool studies were previously unremarkable. ASSESSMENT: 1. Acute on chronic hypoxic and hypercapnic respiratory failure. 2. Obesity hypoventilation syndrome. 3. Human immunodeficiency virus. 4. Obstructive sleep apnea, horrendous. 5. Severe sepsis. 6. Acute kidney injury. 7. Adult respiratory distress syndrome, suspected. DISCUSSION AND PLAN: We will put the patient on Precedex. Hopefully, this will improve his tachyarrhythmia as well as provide sedation. We will wean away the propofol if tolerated. D5 water will be introduced. I will check his magnesium and phosphorus with tomorrow morning's laboratories. Multiple adjustments have been made to the ventilator. Of note, we switch him over to assist-control as I think that his lungs are too sick to fully tolerate SIMV at this moment. The patient is critically ill. At this point, he still requires too much oxygen to safely pursue a tracheostomy. I would like to get some diagnostic studies, but this is not possible because of technical limitations. Should the patient have a code event in the current situation, the compressions would not provide any lasting benefit. If things do not drastically improve, is expected during this hospital stay. Critical care time: 30 minutes. Job ID: [id number] MTDD
[2018-12-25] MEDS ORDERED: Sodium Chloride 0.9% 1,000 ML IV SCH (10:00)
[2018-12-25 10:41] VITALS: BP 84/47
[2018-12-25 10:48] LABS: Vancomycin, Trough 33.6 ug/mL
[2018-12-25] MEDS: Elviteg/Cob/Emtri/Tenof Alafen [Genvoya Tablet] 1 TAB PO SCH (10:52)
[2018-12-25] MEDS: Vancomycin HCl 1.25 GM in Sodium Chloride 0.9% 250 ML 250 ML IVPB SCH (10:54)
[2018-12-25] MEDS: Norepinephrine 8 MG/250 ML BAG IVPB PRN (10:55)
[2018-12-25 11:06] LABS: Creatinine, Urine 146.8 mg/dL (63-166)
[2018-12-25] MEDS ORDERED: Sodium Bicarb 50 MEQ/50 ML Abboject 8.4% SYRINGE ONE (11:11)
[2018-12-25] MEDS ORDERED: EPINEPHrine 1 MG/10 ML Abboject SYRINGE ONE (11:11)
[2018-12-25] MEDS ORDERED: Magnesium 5 GM/10 ML Abboject SYRINGE ONE (11:11)
[2018-12-25] MEDS ORDERED: Hydrocortisone Sod Succ/PF 100 mg/2 ml Vial ONE (12:58)
[2018-12-25] MEDS ORDERED: Sodium Bicarb 50 MEQ/50 ML VIAL ONE ×3 (13:03→13:06)
--- NOTE | 2018-12-25 14:04 | PDOC.EVN ---
Event Note - Event Note Event Note: STACEY BLUE NOTE: STACEY BERNA called to room A08 around 12:50. Residents arrived to bedside with CPR in progress. Patient was previously intubated during this hospitalization. Patient was given multiple rounds of bicarbonate, epinephrine, and vasopressin. His cardiac rhythm remained in PEA without a pulse regained. Dr. Kinsey, Emergency Medicine, was present during CODE. Time of recorded at 13:14. Please see full code record for further details.
[2018-12-25] MEDS ORDERED: Heparin 5,000 UNITS/ML VIAL SC SCH (15:00)
[2018-12-25 16:12] LABS: Fungus Stain Final report (.)
--- NOTE | 2018-12-26 07:31 | DIS ---
DATE OF ADMISSION: 12/07/2018 DATE OF DISCHARGE: 12/25/2018 ADMITTING ATTENDING: Kiesha Antonio MD. RESIDENT: Dr. Crain. DATE OF : 12/25/2018. TIME OF : 13:14. CAUSE OF : 1. Acute hypoxic hypercapnic respiratory failure secondary to acute respiratory distress syndrome and obesity hypoventilation syndrome. 2. Chronic HIV. 3. Acute kidney injury. 4. Sepsis, unknown source. SECONDARY DIAGNOSES: Morbid obesity, latent syphilis, heart failure with reduced ejection fraction, thrombocytopenia, and hyperkalemia. HOSPITAL COURSE: The patient was a 33-year-old male with a past medical history of heart failure, hyperlipidemia, hypertension, HIV, morbid obesity, presented for low O2 sats in the 80s and low blood pressure. The patient was sent from the [facility]. He was recently discharged from the hospital for acute CHF exacerbation. The patient has been having diarrhea, 5 to 6 episodes of watery stools per day since soon after discharge. He has also been restricted his daily fluid intake to 2 L per day. In the emergency department, he was diaphoretic, had a BP of 92/62, that improved with fluids. He was saturating 87% on room air. The patient did have a white blood cell count of 4.2 with bandemia at that time. Notable lab values at time of admission were BNP of 865 and a chest x-ray that showed no acute changes. The patient did have a creatinine of 1.75 as well. During this hospitalization, the patient did have a code green that was called by on him on the evening of 12/07/2018. The patient had to be intubated at that time due to acute hypoxic respiratory failure and syncope of unknown etiology. The patient remained in the ventilator throughout the rest of the hospitalization and remained hypoxic at all times. The patient had recurrent ABGs that showed a PO2 in the low range, however his pH ranged from 7.28 on the day of intubation and 7.41 on the day of . The patient began to run fevers again on 12/22/2018, and then on 12/24/2018, the fever became severely elevated to 106 and 107 degrees Fahrenheit. The patient also became tachycardic and increasingly hypoxic during this time. The patient was seen by Dr. Chapin who is his primary range manager of HIV medications. He recommended broad spectrum antibiotic therapy as well as antifungal therapy to determine if there was a source of infection that was leading to his unstable nature. The patient was seen several times Dr. Fisher due to Dr. Parrish, his primary steel handler being out of the hospital during the week. Mr. Trejo was repeatedly evaluated to see if he was stable enough for tracheostomy placement, however he was never deemed acceptable due to his hypoxic nature, his tachypnea , as well as his overt size. The patient was evaluated for other sources. He had a bronchoscopy that did not grow any notable pathogens out. He also had an abdominal ultrasound of right upper quadrant to determine if that was the cause, having acalculous cholecystitis. However, his blood cultures were remained negative, also his urine cultures remained negative and they were repeated several times. The patient otherwise continued to deteriorate and family was notified of his rapid deterioration. The patient then had a code blue called on him around 12:50 p.m. on 12/25/2018. The patient underwent multiple rounds of epinephrine and continued CPR during that time with no pulse ever to be regained. Time of was recorded at 13:14 on 12/25/2018. Please see the full code record for further details regarding that. Per Dr. Parrish and the family's wishes, the patient will be sent for an autopsy to further evaluate his cause of . Job ID: [id number] [facility]
[2018-12-26 19:12] LABS: CMV DNA-PCR Test Negative (Negative)
--- NOTE | 2019-01-01 07:15 | PQF ---
Ceasar Trejo III, RAE ANN MD [id number] CLINICAL DOCUMENTATION CLARIFICATION FORM: POST DISCHARGE DATE: 01/01/2019 ATTN: Dr. Antonio Please exercise your independent, professional judgment in responding to the clarification form. Clinical indicators are provided on the bottom of this form for your review Please check appropriate box(s): [ ] Hospital acquired pneumonia. [ ] Community acquired pneumonia [ ] Ventilator associated pneumonia [ ] Pneumonia secondary to (specify organism / underlying disease) [ ] Pneumonia of unknown etiology [ X ] Other diagnosis (please specify)____ARDS with possible ventilator associated pneumonia [ ] Unable to determine In addition, please specify: Present on Admission (POA): [ ] Yes [ ] No [ ] Unable to determine For continuity of documentation, please document condition throughout progress notes and discharge summary. Thank You. CLINICAL INDICATORS - SIGNS / SYMPTOMS / LABS Per 12/24 PN (Tavares): Assessment: "Bilateral diffuse pulmonary infiltrates felt to be due to edema, possible superimposed ventilator associated pneumonia, persistence of fever, which has developed over the past few days." Discussion : "It is more likely that this reflects the inflammatory process in the lungs with possible associated ventilator related pneumonia." Per 12/23 PN (Tavares): Assessment and Discussion: "Negative bronchoalveolar lavage for Pneumocystis. Possible hospital-acquired pneumonia, ventilator associated." Per 12/17, 12/20 , 12/22 PN's (Phillip): "Pneumonia with acute respiratory distress syndrome." Per 12/12-12/14 PN's (Francois): "Community-acquired pneumonia, possible." RISK FACTORS Per respiratory/ventilation: Prolonged mechanical ventilation 12/07-12/25. Per H&P: Obesity hypoventilation syndrome. Recently discharged (11/30) from the hospital for acute CHF exacerbation. Acute and chronic respiratory failure with hypoxia. TREATMENTS: Per Operative Reports: Bronchoscopies with lavage 12/15 (Gregor) and 12/21 (Phillip). Per medication: Vancomycin IVP 2 gm (beginning 12/08) Per Medications: Zosyn IVP 4.5 gm (beginning 12/08) Per consult note: Pulmonary consult Dr. Parrish. Per radiology reports: Serial CXRs (This form is maintained as a part of the permanent medical record) 2014 [employer] All Rights Reserved [email or web address] [phone] MTDD
== END 2018-12-25 13:14 | disposition expired | DRG 853 ==
LOC: ERS 15:58 → MERGE 20:45 → 2NO 20:45 → OBSVTOIN 12-07 08:15 → IMCU/EMU 12-07 09:38 → CCU 12-07 21:52
PROVIDERS: ADMIT Family Medicine; ATTEND Family Medicine
PROC: 5A1955Z Respiratory Ventilation, Greater than 96 Consecutive Hours (ICD-10-PCS; principal; 2018-12-07)
PROC: 0BH17EZ Insertion of Endotracheal Airway into Trachea, Via Natural or Artificial Opening (ICD-10-PCS; 2018-12-07)
PROC: 04HK33Z Insertion of Infusion Device into Right Femoral Artery, Percutaneous Approach (ICD-10-PCS; 2018-12-07)
PROC: 03HY32Z Insertion of Monitoring Device into Upper Artery, Percutaneous Approach (ICD-10-PCS; 2018-12-09)
PROC: 3E033XZ Introduction of Vasopressor into Peripheral Vein, Percutaneous Approach (ICD-10-PCS; 2018-12-09)
PROC: 0B9M8ZX Drainage of Bilateral Lungs, Via Natural or Artificial Opening Endoscopic, Diagnostic (ICD-10-PCS; 2018-12-15)
PROC: 0B9D8ZX Drainage of Right Middle Lung Lobe, Via Natural or Artificial Opening Endoscopic, Diagnostic (ICD-10-PCS; 2018-12-21)
PROC: 5A12012 Performance of Cardiac Output, Single, Manual (ICD-10-PCS; 2018-12-25)
DX: A41.9 Sepsis, unspecified organism (principal); J96.21 Acute and chronic respiratory failure with hypoxia; J96.22 Acute and chronic respiratory failure with hypercapnia; J95.851 Ventilator associated pneumonia; N17.9 Acute kidney failure, unspecified; I13.0 Hypertensive heart and chronic kidney disease with heart failure and stage 1 through stage 4 chronic kidney disease, or unspecified chronic kidney disease; I50.22 Chronic systolic (congestive) heart failure; E87.0 Hyperosmolality and hypernatremia; E87.1 Hypo-osmolality and hyponatremia; Z68.43 Body mass index [BMI] 50.0-59.9, adult; E66.2 Morbid (severe) obesity with alveolar hypoventilation; I47.1 Supraventricular tachycardia; E87.2 Acidosis; I42.9 Cardiomyopathy, unspecified; Z51.5 Encounter for palliative care; D69.6 Thrombocytopenia, unspecified; K52.1 Toxic gastroenteritis and colitis; E87.5 Hyperkalemia; A53.0 Latent syphilis, unspecified as early or late; D75.1 Secondary polycythemia; Z21 Asymptomatic human immunodeficiency virus [HIV] infection status; R73.03 Prediabetes; N18.2 Chronic kidney disease, stage 2 (mild); E78.5 Hyperlipidemia, unspecified; E86.0 Dehydration; T37.5X5A Adverse effect of antiviral drugs, initial encounter; Z87.891 Personal history of nicotine dependence; Z79.82 Long term (current) use of aspirin; Z79.899 Other long term (current) drug therapy; Y84.8 Other medical procedures as the cause of abnormal reaction of the patient, or of later complication, without mention of misadventure at the time of the procedure; Y92.230 Patient room in hospital as the place of occurrence of the external cause
CPT/HCPCS: 36415; 36416; 71045; 76705; 80048; 80053; 80076; 80202; 82533; 82553; 82570; 82805; 83630; 83735; 83880; 84100; 84145; 84300; 84484; 85007; 85025; 85027; 85049; 85060; 85300; 85362; 85379; 85384; 85520; 85610; 85730; 87015; 87040; 87045; 87046; 87070; 87086; 87102; 87116; 87205; 87206; 87324; 87328; 87329; 87385; 87449; 87497; 87899; 88112; 88312; 89190; 93005; 93010; 93306; 93970; 94002; 94003; 94640; C9399; J0171; J0278; J0561; J1650; J1720; J1815; J1940; J2185; J2248; J2250; J2405; J2543; J2704; J2920; J2930; J3370; J3475; J3490; J7050; J7620; S0028